=== PATIENT | female | born 1955 | race Caucasian/White ===

== ENCOUNTER 2017-11-22 22:09 | Inpatient (IN) | payer BC ==
[2017-11-22 22:49] LABS: BASO % 0.4 % (0.0-1.0); EOS # 0.1 10^3/uL (0.0-0.50); EOS % 0.8 % (0.0-3.0); HEMATOCRIT 38.8 % (36.0-47.0); HEMOGLOBIN 12.7 g/dl (12.0-16.0); IMMATURE GRANULOCYTE % 0.2 % (0-3.0); LYMPH # 2.4 10^3/uL (1.5-4.5); LYMPH % 21.7 % (24.0-44.0); MEAN CORPUSCULAR HEMOGLOBIN 28.2 pg (27.0-33.0); MEAN CORPUSCULAR HGB CONC 32.7 g/dl (32.0-36.5); MEAN CORPUSCULAR VOLUME 86.2 fl (80.0-96.0); MONO # 1.1 10^3/uL (0.0-0.8); MONO % 10.2 % (0.0-5.0); NEUTROPHILS # 7.3 10^3/uL (1.8-7.7); NEUTROPHILS % 66.7 % (36.0-66.0); PLATELET COUNT, AUTOMATED 367 10^3/uL (150-450); RED CELL DISTRIBUTION WIDTH 14.2 % (11.5-14.5); WHITE BLOOD COUNT 10.9 10^3/uL (4.0-10.0)
[2017-11-22 23:00] LABS: PROTHROMBIN TIME 12.2 SECONDS (12.4-14.5)
[2017-11-22 23:01] LABS: PARTIAL THROMBOPLASTIN TIME 31.1 SECONDS (26.8-37.9)
[2017-11-22] MEDS: MORPHINE 2 MG/ML 1ML SYRINGE (J2270) IV (23:08)
[2017-11-22 23:10] LABS: ANION GAP 5 MEQ/L (8-16); BLOOD UREA NITROGEN 10 MG/DL (7-18); CALCIUM LEVEL 9.1 MG/DL (8.8-10.2); CARBON DIOXIDE LEVEL 30 MEQ/L (21-32); CHLORIDE LEVEL 94 MEQ/L (98-107); CPK CREATINE PHOSPHOKINASE 98 U/L (26-192); CREATININE FOR GFR 0.55 MG/DL (0.55-1.30); GLOMERULAR FILTRATION RATE > 60.0 (>45); GLUCOSE, FASTING 102 MG/DL (70-100); POTASSIUM SERUM 4.1 MEQ/L (3.5-5.1); SODIUM LEVEL 129 MEQ/L (136-145); TROPONIN I < 0.02 NG/ML (< 0.10)
[2017-11-22 23:11] LABS: CK-MB VALUE MASS 2.7 NG/ML (0.0-3.6); MB/CK RELATIVE INDEX 2.75 (< OR =4); NT-PRO BNP 141 PG/ML (<125)
[2017-11-22] MEDS ORDERED: ISOVUE-370 76% 100ML VIAL (Q9967) As Ordered (23:34)
[2017-11-22] MEDS: dexameTHASONE 20 MG/5 ML VIAL (J1100) IV (23:50)
[2017-11-23] MEDS: MORPHINE 2 MG/ML 1ML SYRINGE (J2270) IV (00:15)
[2017-11-23] MEDS: IPRATROPIUM 0.5MG/ALBUTEROL 2.5MG INH SOL UD 3ML (DUONEB)(J7620) NEB (00:30)
[2017-11-23 00:32] LABS: ABG BASE EXCESS 2.2 (-2.0-2.0); ABG HCO3 27.2 MEQ/L (22.0-26.0); ABG O2 SATURATION 91.5 % (95.0-99.0); ABG PARTIAL PRESSURE CO2 43.7 mmHg (35.0-45.0); ABG PARTIAL PRESSURE O2 63.8 mmHg (75.0-100.0); ABG STANDARD HCO3 26.3 MEQ/L (22.0-26.0); ABG TOTAL CO2 28.5 MEQ/L (23.0-31.0); ABG pH (ARTERIAL) 7.412 UNITS (7.350-7.450)
[2017-11-23] MEDS ORDERED: LEVALBUTEROL 1.25 MG/0.5 ML CONCENTRATE NEB INH (02:15)
[2017-11-23] MEDS: ALPRAZolam 0.25 MG TAB PO ×3 (04:38→20:25)
[2017-11-23] MEDS: MORPHINE 4 MG/ML 1ML VIAL (J2270) IV (04:41)
[2017-11-23] MEDS: NS 1,000 ML IV (04:52)
[2017-11-23] MEDS: methylPREDNISolone INJ 125 MG/2 ML VIAL (J2930) IV (06:34)
[2017-11-23] MEDS: LEVALBUTEROL 1.25 MG/0.5 ML CONCENTRATE NEB INH ×4 (07:38→19:45)
[2017-11-23 08:43] LABS: C REACTIVE PROTEIN QUANTITATIV 1.41 MG/DL (0.00-0.30)
[2017-11-23 09:27] LABS: ERYTHROCYTE SEDIMENTATION RATE 43 mm/hr (0-30)
[2017-11-23 09:34] LABS: OSMOLALITY SERUM 274 MOSM/KG (280-301)
[2017-11-23] MEDS ORDERED: tiZANidine 4 MG TAB PO (10:00)
[2017-11-23] MEDS: HEPARIN SOD (PORCINE) 5000 UNITS/ML VIAL SQ ×2 (10:13→20:27)
[2017-11-23] MEDS: SENOKOT S TAB PO ×2 (10:13→20:25)
[2017-11-23] MEDS: NICOTINE 14 MG/24 HR TRANSDERMAL TD ×2 (10:13→10:15)
[2017-11-23] MEDS ORDERED: PILL CUTTER/CRUSHER XX (10:45)
[2017-11-23 12:24] LABS: HEMATOCRIT 37.7 % (36.0-47.0); HEMOGLOBIN 12.4 g/dl (12.0-16.0); LYMPH # 0.5 10^3/uL (1.5-4.5); LYMPH % 17.4 % (24.0-44.0); MEAN CORPUSCULAR HEMOGLOBIN 28.6 pg (27.0-33.0); MEAN CORPUSCULAR HGB CONC 32.9 g/dl (32.0-36.5); MEAN CORPUSCULAR VOLUME 87.1 fl (80.0-96.0); MONO # 0.1 10^3/uL (0.0-0.8); MONO % 2.9 % (0.0-5.0); NEUTROPHILS # 2.4 10^3/uL (1.8-7.7); NEUTROPHILS % 78.7 % (36.0-66.0); PLATELET COUNT, AUTOMATED 356 10^3/uL (150-450); RED BLOOD COUNT 4.33 10^6/uL (4.00-5.40); RED CELL DISTRIBUTION WIDTH 14.1 % (11.5-14.5); WHITE BLOOD COUNT 3.1 10^3/uL (4.0-10.0)
[2017-11-23] MEDS: CitaloPRAM (CeleXA) 10 MG TABLET PO (13:07)
[2017-11-23] MEDS: methylPREDNISolone INJ 40 MG/1 ML VIAL (J2920) IV ×3 (13:07→23:52)
[2017-11-23] MEDS: oxyCODONE 5MG TAB PO ×2 (13:10→20:26)
[2017-11-23 13:13] LABS: ALBUMIN 3.2 GM/DL (3.2-5.2); ALKALINE PHOSPHATASE 96 U/L (45-117); ALT/SGPT 17 U/L (12-78); ANION GAP 5 MEQ/L (8-16); AST/SGOT 13 U/L (7-37); BILIRUBIN,TOTAL 0.3 MG/DL (0.2-1.0); BLOOD UREA NITROGEN 10 MG/DL (7-18); CALCIUM LEVEL 8.5 MG/DL (8.8-10.2); CARBON DIOXIDE LEVEL 29 MEQ/L (21-32); CHLORIDE LEVEL 94 MEQ/L (98-107); CREATININE FOR GFR 0.58 MG/DL (0.55-1.30); GLOMERULAR FILTRATION RATE > 60.0 (>45); GLUCOSE, FASTING 125 MG/DL (70-100); POTASSIUM SERUM 4.6 MEQ/L (3.5-5.1); SODIUM LEVEL 128 MEQ/L (136-145); TOTAL PROTEIN 7.2 GM/DL (6.4-8.2)
[2017-11-23] MEDS: ONDANSETRON 4 MG TAB (S0181) PO (17:26)
[2017-11-23] MEDS ORDERED: methylPREDNISolone INJ 40 MG/1 ML VIAL (J2920) IV (18:00)
[2017-11-23] MEDS: SODIUM CHLORIDE NASAL 0.65% SPRAY BTL (OCEAN) (22:23)
[2017-11-24] MEDS: oxyCODONE 5MG TAB PO ×3 (02:08→20:25)
[2017-11-24] MEDS: ONDANSETRON 4 MG TAB (S0181) PO ×2 (02:08→12:52)
[2017-11-24] MEDS: ALPRAZolam 0.25 MG TAB PO ×3 (02:08→21:48)
[2017-11-24 03:20] LABS: CHLORIDE,RANDOM URINE 84 MEQ/L; CREATININE,RANDOM URINE 71.2 MG/DL; SODIUM,RANDOM URINE 58 MEQ/L; TOTAL PROTEIN,RANDOM URINE 11.7 MG/DL (0.0-12.0)
[2017-11-24 03:20] LABS: URIC ACID,RANDOM URINE 45.3 MG/DL
[2017-11-24 04:43] LABS: HEMATOCRIT 34.7 % (36.0-47.0); HEMOGLOBIN 11.2 g/dl (12.0-16.0); MEAN CORPUSCULAR HEMOGLOBIN 27.7 pg (27.0-33.0); MEAN CORPUSCULAR HGB CONC 32.3 g/dl (32.0-36.5); MEAN CORPUSCULAR VOLUME 85.9 fl (80.0-96.0); PLATELET COUNT, AUTOMATED 343 10^3/uL (150-450); RED BLOOD COUNT 4.04 10^6/uL (4.00-5.40); RED CELL DISTRIBUTION WIDTH 14.1 % (11.5-14.5); WHITE BLOOD COUNT 6.2 10^3/uL (4.0-10.0)
[2017-11-24 05:04] LABS: ANION GAP 3 MEQ/L (8-16); BLOOD UREA NITROGEN 15 MG/DL (7-18); CALCIUM LEVEL 8.3 MG/DL (8.8-10.2); CARBON DIOXIDE LEVEL 31 MEQ/L (21-32); CHLORIDE LEVEL 95 MEQ/L (98-107); CPK CREATINE PHOSPHOKINASE 55 U/L (26-192); CREATININE FOR GFR 0.49 MG/DL (0.55-1.30); GLOMERULAR FILTRATION RATE > 60.0 (>45); GLUCOSE, FASTING 129 MG/DL (70-100); POTASSIUM SERUM 4.9 MEQ/L (3.5-5.1); SODIUM LEVEL 129 MEQ/L (136-145); TROPONIN I < 0.02 NG/ML (< 0.10)
[2017-11-24 05:05] LABS: CK-MB VALUE MASS 2.2 NG/ML (0.0-3.6)
[2017-11-24] MEDS: methylPREDNISolone INJ 40 MG/1 ML VIAL (J2920) IV ×4 (06:31→23:33)
[2017-11-24] MEDS: LEVALBUTEROL 1.25 MG/0.5 ML CONCENTRATE NEB INH ×4 (07:40→19:53)
[2017-11-24] MEDS: SENOKOT S TAB PO ×2 (09:29→20:24)
[2017-11-24] MEDS: FLUTICASONE PROP 0.05% NASAL SPRAY 16 GM (FLONASE) ×2 (09:29→20:24)
[2017-11-24] MEDS: ACETAMINOPHEN TAB 650MG DOSE (2X325MG) PO (09:30)
[2017-11-24] MEDS: CitaloPRAM (CeleXA) 10 MG TABLET PO (09:30)
[2017-11-24] MEDS: NICOTINE 14 MG/24 HR TRANSDERMAL TD (09:30)
[2017-11-24] MEDS: HEPARIN SOD (PORCINE) 5000 UNITS/ML VIAL SQ ×2 (09:30→20:24)
[2017-11-24] MEDS: diazePAM 5 MG TAB PO (10:28)
[2017-11-24 14:18] LABS: ANTI DOUBLE STRAND-DNA AB 6 IU/mL (0-9); ANTINUCLEAR ANTIBODIES DIRECT Positive (Negative); RNP ANTIBODIES <0.2 AI (0.0-0.9); SJOGREN'S ANTI SS-A <0.2 AI (0.0-0.9); SJOGREN'S ANTI SS-B <0.2 AI (0.0-0.9); SMITH ANTIBODIES <0.2 AI (0.0-0.9)
[2017-11-24 14:58] LABS: CK-MB VALUE MASS 2.3 NG/ML (0.0-3.6); CPK CREATINE PHOSPHOKINASE 56 U/L (26-192); TROPONIN I < 0.02 NG/ML (< 0.10)
[2017-11-24 17:53] LABS: ALBUMIN 3.4 GM/DL (3.2-5.2); ANION GAP 5 MEQ/L (8-16); BLOOD UREA NITROGEN 19 MG/DL (7-18); CALCIUM LEVEL 8.8 MG/DL (8.8-10.2); CARBON DIOXIDE LEVEL 32 MEQ/L (21-32); CHLORIDE LEVEL 93 MEQ/L (98-107); CREATININE FOR GFR 0.58 MG/DL (0.55-1.30); FREE T4 1.07 NG/DL (0.76-1.46); GLOMERULAR FILTRATION RATE > 60.0 (>45); GLUCOSE, FASTING 106 MG/DL (70-100); PHOSPHORUS LEVEL 3.7 MG/DL (2.5-4.9); RHEUMATOID FACTOR QUANT < 10.0 IU/ML (0-15.0); SODIUM LEVEL 130 MEQ/L (136-145)
[2017-11-24 18:00] LABS: POTASSIUM SERUM 5.3 MEQ/L (3.5-5.1)
[2017-11-24 18:16] LABS: OSMOLALITY SERUM 280 MOSM/KG (280-301)
[2017-11-24 18:40] LABS: PTH INTACT 61.7 PG/ML (18.5-88.0); TOTAL 25(OH) VITAMIN D 18.1 NG/ML (30.0-100.0)
[2017-11-24 20:09] LABS: APPEARANCE, URINE CLEAR (CLEAR); BACTERIA, URINE AUTO NEGATIVE (NEGATIVE); BILIRUBIN, URINE AUTO NEGATIVE (NEGATIVE); BLOOD, URINE BLOOD 1+ (NEGATIVE); COLOR, URINE STRAW (YELLOW); GLUCOSE, URINE (UA) AUTO NEGATIVE (NEGATIVE); KETONE, URINE AUTO NEGATIVE (NEGATIVE); LEUKOCYTE ESTERASE, URINE AUTO NEGATIVE (NEGATIVE); NITRITE, URINE AUTO NEGATIVE (NEGATIVE); PROTEIN, URINE AUTO NEGATIVE (NEGATIVE); RBC, URINE AUTO 2 /HPF (0-3); SPECIFIC GRAVITY URINE AUTO 1.009 (1.002-1.035); SQUAMOUS EPITHELIAL CELL UR AU 0 /HPF (0-6); UROBILINOGEN, URINE AUTO 0.2 mg/dL (0.0-2.0); WBC, URINE AUTO 0 /HPF (0-3)
[2017-11-24] MEDS: SODIUM CHLORIDE NASAL 0.65% SPRAY BTL (OCEAN) (20:25)
[2017-11-25] MEDS: ALPRAZolam 0.25 MG TAB PO ×4 (04:27→23:54)
[2017-11-25] MEDS: oxyCODONE 5MG TAB PO ×4 (04:28→23:55)
[2017-11-25 04:56] LABS: HEMOGLOBIN 12.5 g/dl (12.0-16.0); MEAN CORPUSCULAR HEMOGLOBIN 28.2 pg (27.0-33.0); MEAN CORPUSCULAR HGB CONC 32.1 g/dl (32.0-36.5); MEAN CORPUSCULAR VOLUME 87.8 fl (80.0-96.0); PLATELET COUNT, AUTOMATED 351 10^3/uL (150-450); RED BLOOD COUNT 4.44 10^6/uL (4.00-5.40); RED CELL DISTRIBUTION WIDTH 14.2 % (11.5-14.5); WHITE BLOOD COUNT 8.4 10^3/uL (4.0-10.0)
[2017-11-25 05:17] LABS: ANION GAP 4 MEQ/L (8-16); BLOOD UREA NITROGEN 18 MG/DL (7-18); CALCIUM LEVEL 8.4 MG/DL (8.8-10.2); CARBON DIOXIDE LEVEL 34 MEQ/L (21-32); CHLORIDE LEVEL 95 MEQ/L (98-107); CREATININE FOR GFR 0.62 MG/DL (0.55-1.30); GLOMERULAR FILTRATION RATE > 60.0 (>45); GLUCOSE, FASTING 125 MG/DL (70-100); POTASSIUM SERUM 4.4 MEQ/L (3.5-5.1); SODIUM LEVEL 133 MEQ/L (136-145)
[2017-11-25] MEDS: methylPREDNISolone INJ 40 MG/1 ML VIAL (J2920) IV ×4 (05:25→20:32)
[2017-11-25] MEDS: GASTROGRAFIN SOLUTION 30ML PO ×2 (06:43→06:44)
[2017-11-25] MEDS: LEVALBUTEROL 1.25 MG/0.5 ML CONCENTRATE NEB INH ×4 (07:49→19:36)
[2017-11-25] MEDS ORDERED: ISOVUE-370 76% 100ML VIAL (Q9967) As Ordered (08:33)
[2017-11-25] MEDS: NICOTINE 14 MG/24 HR TRANSDERMAL TD (09:00)
[2017-11-25] MEDS: HEPARIN SOD (PORCINE) 5000 UNITS/ML VIAL SQ ×2 (09:25→20:32)
[2017-11-25] MEDS: SENOKOT S TAB PO ×2 (09:26→20:31)
[2017-11-25] MEDS: CitaloPRAM (CeleXA) 10 MG TABLET PO (09:26)
[2017-11-25] MEDS: FLUTICASONE PROP 0.05% NASAL SPRAY 16 GM (FLONASE) ×2 (09:29→20:32)
[2017-11-25] MEDS: CALCITONIN NASAL SPRAY 3.7 ML BTL (11:21)
[2017-11-25] MEDS: MIRALAX *UNIT DOSE* 17GM PACKET PO (11:59)
[2017-11-25] MEDS ORDERED: CALCIUM CARBONATE 500 MG CHEW U/D PO (17:15)
[2017-11-26 04:41] LABS: HEMATOCRIT 37.5 % (36.0-47.0); HEMOGLOBIN 11.8 g/dl (12.0-16.0); MEAN CORPUSCULAR HEMOGLOBIN 27.8 pg (27.0-33.0); MEAN CORPUSCULAR HGB CONC 31.5 g/dl (32.0-36.5); MEAN CORPUSCULAR VOLUME 88.4 fl (80.0-96.0); PLATELET COUNT, AUTOMATED 352 10^3/uL (150-450); RED BLOOD COUNT 4.24 10^6/uL (4.00-5.40); RED CELL DISTRIBUTION WIDTH 14.4 % (11.5-14.5); WHITE BLOOD COUNT 7.8 10^3/uL (4.0-10.0)
[2017-11-26 04:52] LABS: ANION GAP 2 MEQ/L (8-16); BLOOD UREA NITROGEN 18 MG/DL (7-18); CALCIUM LEVEL 8.4 MG/DL (8.8-10.2); CARBON DIOXIDE LEVEL 37 MEQ/L (21-32); CHLORIDE LEVEL 95 MEQ/L (98-107); CREATININE FOR GFR 0.49 MG/DL (0.55-1.30); GLOMERULAR FILTRATION RATE > 60.0 (>45); GLUCOSE, FASTING 114 MG/DL (70-100); POTASSIUM SERUM 4.7 MEQ/L (3.5-5.1); SODIUM LEVEL 134 MEQ/L (136-145)
[2017-11-26] MEDS: oxyCODONE 5MG TAB PO ×2 (06:44→18:09)
[2017-11-26] MEDS: ALPRAZolam 0.25 MG TAB PO ×2 (06:44→18:09)
[2017-11-26] MEDS: LEVALBUTEROL 1.25 MG/0.5 ML CONCENTRATE NEB INH ×4 (07:05→19:44)
[2017-11-26] MEDS: NICOTINE 14 MG/24 HR TRANSDERMAL TD (09:00)
[2017-11-26] MEDS: CitaloPRAM (CeleXA) 10 MG TABLET PO (09:05)
[2017-11-26] MEDS: SENOKOT S TAB PO ×2 (09:05→20:08)
[2017-11-26] MEDS: MIRALAX *UNIT DOSE* 17GM PACKET PO (09:06)
[2017-11-26] MEDS: methylPREDNISolone INJ 40 MG/1 ML VIAL (J2920) IV ×3 (09:06→20:09)
[2017-11-26] MEDS: HEPARIN SOD (PORCINE) 5000 UNITS/ML VIAL SQ ×2 (09:06→20:09)
[2017-11-26] MEDS: FLUTICASONE PROP 0.05% NASAL SPRAY 16 GM (FLONASE) ×2 (09:07→20:09)
[2017-11-26] MEDS: CALCITONIN NASAL SPRAY 3.7 ML BTL (09:07)
[2017-11-26] MEDS: VITAMIN D 50,000 UNITS CAPSULE (ERGOCALCIFEROL 1.25MG) PO (10:55)
[2017-11-27] MEDS: oxyCODONE 5MG TAB PO ×4 (02:05→19:43)
[2017-11-27 04:34] LABS: HEMATOCRIT 38.9 % (36.0-47.0); HEMOGLOBIN 12.4 g/dl (12.0-16.0); MEAN CORPUSCULAR HEMOGLOBIN 28.1 pg (27.0-33.0); MEAN CORPUSCULAR HGB CONC 31.9 g/dl (32.0-36.5); MEAN CORPUSCULAR VOLUME 88.2 fl (80.0-96.0); PLATELET COUNT, AUTOMATED 342 10^3/uL (150-450); RED BLOOD COUNT 4.41 10^6/uL (4.00-5.40); RED CELL DISTRIBUTION WIDTH 14.5 % (11.5-14.5); WHITE BLOOD COUNT 9.1 10^3/uL (4.0-10.0)
[2017-11-27 04:49] LABS: ANION GAP 3 MEQ/L (8-16); BLOOD UREA NITROGEN 17 MG/DL (7-18); CALCIUM LEVEL 8.5 MG/DL (8.8-10.2); CARBON DIOXIDE LEVEL 34 MEQ/L (21-32); CHLORIDE LEVEL 97 MEQ/L (98-107); CREATININE FOR GFR 0.44 MG/DL (0.55-1.30); GLOMERULAR FILTRATION RATE > 60.0 (>45); GLUCOSE, FASTING 106 MG/DL (70-100); POTASSIUM SERUM 4.7 MEQ/L (3.5-5.1); SODIUM LEVEL 134 MEQ/L (136-145); TOTAL PROTEIN 6.7 GM/DL (6.4-8.2)
[2017-11-27] MEDS: LEVALBUTEROL 1.25 MG/0.5 ML CONCENTRATE NEB INH ×4 (07:15→20:07)
[2017-11-27] MEDS: CitaloPRAM (CeleXA) 10 MG TABLET PO (08:16)
[2017-11-27] MEDS: HEPARIN SOD (PORCINE) 5000 UNITS/ML VIAL SQ ×2 (08:17→20:25)
[2017-11-27] MEDS: MIRALAX *UNIT DOSE* 17GM PACKET PO (08:17)
[2017-11-27] MEDS: methylPREDNISolone INJ 40 MG/1 ML VIAL (J2920) IV ×3 (08:17→20:25)
[2017-11-27] MEDS: FLUTICASONE PROP 0.05% NASAL SPRAY 16 GM (FLONASE) ×2 (08:18→20:25)
[2017-11-27] MEDS: NICOTINE 14 MG/24 HR TRANSDERMAL TD (08:18)
[2017-11-27] MEDS: CALCITONIN NASAL SPRAY 3.7 ML BTL (08:18)
[2017-11-27] MEDS: SENOKOT S TAB PO ×2 (08:20→20:25)
[2017-11-27] MEDS: ALPRAZolam 0.25 MG TAB PO ×3 (08:21→19:42)
[2017-11-28 00:06] LABS: ANA (HEP2) Positive (.); ANA HOMOGENEOUS PATTERN >1:1280 (.); FREE KAPPA LIGHT CHAINS SERUM 8.8 mg/L (3.3-19.4); FREE LAMBDA LIGHT CHAINS SERUM 6.9 mg/L (5.7-26.3); KAPPA/LAMBDA RATIO SERUM 1.28 (0.26-1.65)
[2017-11-28 00:06] LABS: CYCLIC CITRULLINATED PEPTIDE 8 units (0-19)
[2017-11-28] MEDS: ALPRAZolam 0.25 MG TAB PO ×3 (00:19→08:55)
[2017-11-28] MEDS: oxyCODONE 5MG TAB PO ×3 (00:19→08:55)
[2017-11-28 05:05] LABS: HEMATOCRIT 39.9 % (36.0-47.0); HEMOGLOBIN 12.9 g/dl (12.0-16.0); MEAN CORPUSCULAR HEMOGLOBIN 28.1 pg (27.0-33.0); MEAN CORPUSCULAR HGB CONC 32.3 g/dl (32.0-36.5); MEAN CORPUSCULAR VOLUME 86.9 fl (80.0-96.0); PLATELET COUNT, AUTOMATED 372 10^3/uL (150-450); RED BLOOD COUNT 4.59 10^6/uL (4.00-5.40); RED CELL DISTRIBUTION WIDTH 14.5 % (11.5-14.5)
[2017-11-28 05:27] LABS: ANION GAP 5 MEQ/L (8-16); BLOOD UREA NITROGEN 17 MG/DL (7-18); CALCIUM LEVEL 8.3 MG/DL (8.8-10.2); CARBON DIOXIDE LEVEL 33 MEQ/L (21-32); CHLORIDE LEVEL 96 MEQ/L (98-107); GLOMERULAR FILTRATION RATE > 60.0 (>45); GLUCOSE, FASTING 110 MG/DL (70-100); POTASSIUM SERUM 4.7 MEQ/L (3.5-5.1); SODIUM LEVEL 134 MEQ/L (136-145)
[2017-11-28] MEDS: LEVALBUTEROL 1.25 MG/0.5 ML CONCENTRATE NEB INH (07:14)
[2017-11-28] MEDS: MIRALAX *UNIT DOSE* 17GM PACKET PO (08:46)
[2017-11-28] MEDS: SENOKOT S TAB PO (08:46)
[2017-11-28] MEDS: CitaloPRAM (CeleXA) 10 MG TABLET PO (08:46)
[2017-11-28] MEDS: methylPREDNISolone INJ 40 MG/1 ML VIAL (J2920) IV (08:46)
[2017-11-28] MEDS: NICOTINE 14 MG/24 HR TRANSDERMAL TD (08:47)
[2017-11-28] MEDS: HEPARIN SOD (PORCINE) 5000 UNITS/ML VIAL SQ (08:47)
[2017-11-28] MEDS: CALCITONIN NASAL SPRAY 3.7 ML BTL (08:47)
[2017-11-28] MEDS: FLUTICASONE PROP 0.05% NASAL SPRAY 16 GM (FLONASE) (08:47)
[2017-11-29 00:07] LABS: FREE LAMBDA LIGHT CHAINS URINE 0.68 mg/L (0.24-6.66); KAPPA/LAMBDA RATIO URINE 17.79 (2.04-10.37)
[2017-11-29 08:50] LABS: ALBUMIN 3.75 GM/DL (3.29-5.55); ALBUMIN % 55.9 % (55.8-66.1); ALPHA-1-GLOBULINS 0.27 GM/DL (0.17-0.41); ALPHA-2-GLOBULINS 0.88 GM/DL (0.42-0.99); ALPHA-2-GLOBULINS % 13.2 % (7.1-11.8); BETA-1-GLOBULINS 0.44 GM/DL (0.28-0.60); BETA-1-GLOBULINS % 6.5 % (4.7-7.2); BETA-2-GLOBULINS 0.35 GM/DL (0.19-0.55); BETA-2-GLOBULINS % 5.2 % (3.2-6.5); GAMMA GLOBULIN % 15.2 % (11.1-18.8); GAMMA GLOBULINS 1.02 GM/DL (0.65-1.58)
[2017-11-29 09:16] LABS: DRVV SCREEN 34.9 SEC
[2017-11-29 09:17] LABS: PTT LUPUS TYPE ANTICOAG SCREEN 0.8 (0-1.2)
== END 2017-11-28 10:40 | disposition home or self-care (01) | DRG 347 ==
LOC: M ED 22:09 → M PCU 11-27 10:45 → M ED INP 11-23 02:29 → M ICU 11-23 04:29
DX: M48.54XA Collapsed vertebra, not elsewhere classified, thoracic region, initial encounter for fracture (principal); I31.3 Pericardial effusion (noninflammatory); J44.1 Chronic obstructive pulmonary disease with (acute) exacerbation; E87.1 Hypo-osmolality and hyponatremia; F17.210 Nicotine dependence, cigarettes, uncomplicated; Z90.49 Acquired absence of other specified parts of digestive tract; Z88.6 Allergy status to analgesic agent; Z79.899 Other long term (current) drug therapy; F41.9 Anxiety disorder, unspecified

== ENCOUNTER → 2017-11-30 | Outpatient (CLI) | payer BC | LOC: M CARPUL 08:30 | DX: I31.3 Pericardial effusion (noninflammatory) (principal); I35.8 Other nonrheumatic aortic valve disorders; R94.31 Abnormal electrocardiogram [ECG] [EKG] | CPT/HCPCS: 93306 ==

== ENCOUNTER → 2018-01-02 | Outpatient (CLI) | payer BC | LOC: M SMT 10:23 | DX: I31.3 Pericardial effusion (noninflammatory) (principal) | CPT/HCPCS: 71046 ==

== ENCOUNTER 2018-09-27 14:28 | Inpatient (IN) | payer BC ==
[~2018-09-27] VITALS: Ht 177.8 cm; Wt 59.5 kg
[~2018-09-27 14:28] MED LIST: BREO1INH INH; CALC20SPR; CALC500C16 PO; CELE10TA PO; CITA20TA4 PO; DOK100TA PO; DRIS50003 PO; FLUTISP; LEVA12INH INH; NICO14PA TD; OXYCO5TA PO; PRED20TA PO; PROAAER10 INH; XANA0.25 PO
[2018-09-27] MEDS: IPRATROPIUM 0.5MG/ALBUTEROL 2.5MG INH SOL UD 3ML (DUONEB)(J7620) NEB PRN ×3 (14:55→16:07)
[2018-09-27 15:10] LABS: BASO % 0.1 % (0.0-1.0); HEMATOCRIT 37.4 % (36.0-47.0); HEMOGLOBIN 12.2 g/dl (12.0-15.5); LYMPH # 0.7 10^3/uL (1.5-4.5); LYMPH % 4.7 % (24.0-44.0); MEAN CORPUSCULAR HEMOGLOBIN 29.8 pg (27.0-33.0); MEAN CORPUSCULAR HGB CONC 32.6 g/dl (32.0-36.5); MEAN CORPUSCULAR VOLUME 91.2 fl (80.0-96.0); MONO # 0.8 10^3/uL (0.0-0.8); MONO % 5.4 % (0.0-5.0); NEUTROPHILS # 12.3 10^3/uL (1.8-7.7); NEUTROPHILS % 89.6 % (36.0-66.0); PLATELET COUNT, AUTOMATED 295 10^3/uL (150-450); WHITE BLOOD COUNT 13.8 10^3/uL (4.0-10.0)
[2018-09-27] MEDS: METOPROLOL 5 MG/5 ML VIAL IV SCH ×3 (15:16→17:14)
--- NOTE | 2018-09-27 15:23 | REP ---
Chest one-view HISTORY: Cough Comparison: 01/02/2018 An increase in interstitial markings is present in the lungs. The heart is normal in size. The pulmonary vasculature is normal in appearance. A moderate size hiatal hernia is present. Impression: 1. There is an increase in interstitial markings in the lungs consistent with interstitial edema or infiltrates. 2. Moderate size hiatal hernia. Electronically Signed by Matthew Dior MD 09/27/2018 03:14 P
[2018-09-27] MEDS ORDERED: methylPREDNISolone INJ 125 MG/2 ML VIAL (J2930) IV ONE (15:30)
[2018-09-27] MEDS ORDERED: ONDANSETRON 4MG/2ML VIAL (J2405) IV ONE (15:30)
[2018-09-27] MEDS: MORPHINE 2 MG/ML 1ML SYRINGE (J2270) IV PRN ×2 (15:33→17:43)
[2018-09-27 15:34] LABS: ALBUMIN 3.4 GM/DL (3.2-5.2); ALT/SGPT 11 U/L (12-78); BILIRUBIN,DIRECT 0.2 MG/DL (0.0-0.2); BILIRUBIN,TOTAL 0.5 MG/DL (0.2-1.0); BLOOD UREA NITROGEN 9 MG/DL (7-18); CALCIUM LEVEL 8.9 MG/DL (8.8-10.2); CARBON DIOXIDE LEVEL 29 MEQ/L (21-32); CHLORIDE LEVEL 89 MEQ/L (98-107); CPK CREATINE PHOSPHOKINASE 65 U/L (26-192); CREATININE FOR GFR 0.42 MG/DL (0.55-1.30); GLOMERULAR FILTRATION RATE > 60.0 (>45); GLUCOSE, FASTING 119 MG/DL (70-100); MB/CK RELATIVE INDEX 3.38 (< OR =4); NT-PRO BNP 462 PG/ML (<125); POTASSIUM SERUM 4.3 MEQ/L (3.5-5.1); SODIUM LEVEL 126 MEQ/L (136-145); TOTAL PROTEIN 6.9 GM/DL (6.4-8.2); TROPONIN I < 0.02 NG/ML (< 0.10)
[2018-09-27 15:39] LABS: INFLUENZA A AMPLIFICATION NEGATIVE (NEGATIVE); INFLUENZA B AMPLIFICATION NEGATIVE (NEGATIVE)
[2018-09-27 15:55] LABS: ABG BASE EXCESS 4.2 (-2.0-2.0); ABG HCO3 29.7 MEQ/L (22.0-26.0); ABG O2 SATURATION 93.1 % (95.0-99.0); ABG PARTIAL PRESSURE CO2 48.3 mmHg (35.0-45.0); ABG PARTIAL PRESSURE O2 66.5 mmHg (75.0-100.0); ABG STANDARD HCO3 28.1 MEQ/L (22.0-26.0); ABG TOTAL CO2 31.2 MEQ/L (23.0-31.0); ABG pH (ARTERIAL) 7.407 UNITS (7.350-7.450)
[2018-09-27] MEDS ORDERED: cefTRIAXone SOD 1 GM in D5W MINI-BAG PLUS 50 ML IV ONE (16:30)
[2018-09-27] MEDS ORDERED: AZITHROMYCIN INJ 500 MG, VIAL MATE ADAPTER 1 EACH in D5W 250 ML IV ONE (16:30)
[2018-09-27] MEDS ORDERED: HYDR-3713 PO (16:34)
[2018-09-27] MEDS ORDERED: TUMS500C PO (16:34)
[2018-09-27] MEDS ORDERED: INCR1INH INH (16:34)
[2018-09-27] MEDS ORDERED: VITA50005 PO (16:34)
[2018-09-27] MEDS ORDERED: CALCIUM CARBONATE 500 MG CHEW U/D PO PRN (16:45)
[2018-09-27 20:15] VITALS: BP 113/60
[2018-09-27] MEDS: IPRATROPIUM 0.5MG/ALBUTEROL 2.5MG INH SOL UD 3ML (DUONEB)(J7620) NEB SCH ×2 (21:41→23:50)
[2018-09-27] MEDS: NS 1,000 ML IV SCH (22:27)
[2018-09-27] MEDS: NORCO, ANEXSIA 5/325MG TABLET (HYDROcodone/ACETAMINOPHEN) PO PRN (22:27)
[2018-09-28] MEDS: methylPREDNISolone INJ 40 MG/1 ML VIAL (J2920) IV SCH ×3 (00:27→17:28)
[2018-09-28] MEDS: IPRATROPIUM 0.5MG/ALBUTEROL 2.5MG INH SOL UD 3ML (DUONEB)(J7620) NEB SCH ×7 (03:43→23:28)
[2018-09-28] MEDS: NS 1,000 ML IV SCH ×2 (05:15→16:15)
[2018-09-28] MEDS: LevoFLOXacin IV 500 MG in APPROPRIATE DILUENT 1 EA IV SCH (05:15)
[2018-09-28 06:00] VITALS: BP 116/58
[2018-09-28 06:31] LABS: HEMATOCRIT 32.6 % (36.0-47.0); HEMOGLOBIN 10.7 g/dl (12.0-15.5); LYMPH # 0.4 10^3/uL (1.5-4.5); LYMPH % 3.3 % (24.0-44.0); MEAN CORPUSCULAR HEMOGLOBIN 29.2 pg (27.0-33.0); MEAN CORPUSCULAR HGB CONC 32.8 g/dl (32.0-36.5); MEAN CORPUSCULAR VOLUME 88.8 fl (80.0-96.0); MONO # 0.2 10^3/uL (0.0-0.8); NEUTROPHILS % 94.4 % (36.0-66.0); PLATELET COUNT, AUTOMATED 268 10^3/uL (150-450); RED BLOOD COUNT 3.67 10^6/uL (4.00-5.40); WHITE BLOOD COUNT 10.6 10^3/uL (4.0-10.0)
[2018-09-28 07:02] LABS: BLOOD UREA NITROGEN 13 MG/DL (7-18); CALCIUM LEVEL 8.6 MG/DL (8.8-10.2); CARBON DIOXIDE LEVEL 30 MEQ/L (21-32); CHLORIDE LEVEL 91 MEQ/L (98-107); CREATININE FOR GFR 0.46 MG/DL (0.55-1.30); GLOMERULAR FILTRATION RATE > 60.0 (>45); GLUCOSE, FASTING 152 MG/DL (70-100); SODIUM LEVEL 128 MEQ/L (136-145)
--- NOTE | 2018-09-28 07:54 | ECGEPIP ---
Stationary ECG Study [facility] - ED Test Date: 2018-09-27 Pat Name: OSVALDO BRASWELL Department: Room: - Gender: F Crematory Operator: VENITA : 1955 Requested By: JOEL Martin PA-C Order Number: [id number] Reading MD: Siva Edwards Measurements Intervals [place] Rate: 143 P: SC: 0 QRS: 25 QRSD: 71 T: 63 QT: 257 QTc: 397 Interpretive Statements ATRIAL FIBRILLATION WITH RAPID VENTRICULAR RESPONSE WITH ABERRANT CONDUCTION OR VENTRICULAR PREMATURE COMPLEXES LOW QRS VOLTAGE IN EXTREMITY LEADS ANTEROSEPTAL MYOCARDIAL INFARCTION, PROBABLY OLD RHYTHM/RATE CHANGE COMPARED TO 12/14/17 Electronically Signed On 09-28-2018 7:53:59 EST by Siva Edwards
--- NOTE | 2018-09-28 07:56 | ECGEPIP ---
Stationary ECG Study [facility] - ED Test Date: 2018-09-27 Pat Name: OSVALDO BRASWELL Department: Room: - Gender: F Information Systems Specialist: VENITA : 1955 Requested By: Lor Munoz Order Number: [id number] Reading MD: Siva Edwards Measurements Intervals [place] Rate: 91 P: 66 MS: 177 QRS: 50 QRSD: 80 T: 58 QT: 309 QTc: 380 Interpretive Statements SINUS RHYTHM POSSIBLE LEFT ATRIAL ENLARGEMENT ANTEROSEPTAL MYOCARDIAL INFARCTION, OF INDETERMINATE AGE RHYTHM/RATE CHANGE COMPARED TO PRIOR ON SAME DATE Electronically Signed On 09-28-2018 7:55:57 EST by Siva Edwards
[2018-09-28] MEDS: CALCITONIN NASAL SPRAY 3.7 ML BTL SCH (08:27)
[2018-09-28] MEDS: NORCO, ANEXSIA 5/325MG TABLET (HYDROcodone/ACETAMINOPHEN) PO PRN ×2 (08:28→17:27)
[2018-09-28] MEDS ORDERED: PNEUMOCOCCAL VACCINE 0.5ML SYRINGE(90732) PNEUMOVAX 23 IM ONE (09:00)
[2018-09-28] MEDS ORDERED: CitaloPRAM (CeleXA) 20 MG TAB PO SCH (09:00)
--- NOTE | 2018-09-28 10:11 | IPNPDOC ---
Subjective Date Seen The patient was seen on 09/28/18. Subjective Chief Complaint/HPI Patient is examined at bedside. She states that she has been feeling congested/sinus infection for a week and half. 2 days prior to admission she started having productive cough with milky white color sputum. She also feels that she was very congested with mild right ear pain; some nausea which had resolved. She also states that she has a headache that's about 7/10, stating that she is on Meloxicam 15mg QAM and would like to be put back on that as her headache is bothering her. She admits improving SOB and productive cough; decreased appetite which resolved. Denies sore throat, current N/V, lightheadedness, sinus pain, chest pain, or palpitation. General: Reports: Normal Appetite; Denies: Chills, Night Sweats Constitutional: Denies: Chills, Fever, Night Sweats ENT: Reports: Head Aches, Ear Pain (right, improving) Pulmonary: Reports: Dyspnea (Improving), Cough (Improving, productive); Denies: Pleuritic Chest Pain Cardiovascular: Denies: Chest Pain, Palpitations Gastrointestinal: Denies: Nausea, Vomiting, Abdominal Pain Neurological: Denies: Weakness, Incoordination Psych: Reports: Anxiety Objective Physical Examination General Exam: Positive: Alert, Cooperative, Mild Distress, Other (NC n place) Eye Exam: Positive: Conjunctiva & lids normal; Negative: Sclera icteric ENT Exam: Positive: Mucous membr. moist/pink, Pharynx Normal, Tongue Midline, Nares Patent, Tympanic Membranes Normal (Mild-mod fluid retention behind right TM), Ext Auditory Canal Nml, Other ENT (No tenderness on palpation of frontal or maxillary sinus) Neck Exam: Positive: Supple Chest Exam: Positive: Clear to auscultation, Normal air movement; Negative: Rales, Rhonchi, Wheezing Heart Exam: Positive: Rate Normal, Regular Rhythm, Normal S1, Normal S2; Negative: Murmurs Abdomen Exam: Positive: Normal bowel sounds, Soft; Negative: Tenderness Extremity Exam: Positive: Normal pulses; Negative: Swelling Skin Exam: Positive: Nl turgor and temperature Neuro Exam: Positive: Normal Speech, Strength at 5/5 X4 ext Psych Exam: Positive: Mental status NL, Anxiety, Memory Intact, Oriented x 3 Assessment /Plan Problems (1) Lower respiratory tract infection Status: Acute Response to Treatment: Controlled Discussed With: Patient Problem Specific Plan: Monitor Clinically, Repeat Labs Problem Text: Likely 2/2 community acquired pneumonia. Afebrile. Improving SOB and productive cough. Leukocytosis improving, elevated CRP. Continue IV levofloxacin. Sputum Culture ordered. Sat appro. on NC at 92% as pt has COPD. Continue to f/u with CBC and CRP. Resp tx, Oxygen therapy, and vital signs as scheduled (2) COPD exacerbation Status: Acute Response to Treatment: Controlled Problem Specific Plan: Monitor Clinically Problem Text: On IV Solumedrol 40mg IV Q8h. Sat appro for COPD pts on NC at 92%. May taper down tmrw if symptoms continue to improve. Resp treatment and oxygen therapy as scheduled (3) Hyponatremia Status: Acute Discussed With: Patient Problem Specific Plan: Monitor Clinically, Repeat Labs Problem Text: Corrected Na 129. Likely 2/2 inadequate intake vs hemodilution. IV NS d/c as pt tolerating PO diet well now. Decreased appetite resolved. Discussed with pt to increased diet/salty food intake for now. Asymptomatic. F/u with BMP. Further work up of hyponatremia if worsens. Continue to monitor for signs as symptoms (4) Headache Status: Chronic Problem Specific Plan: Monitor Clinically Problem Text: Continue outpt medication Mobic. On [place] Q6h PRN severe pain. Start actaminophen. Continue to monitor the pt Plan/VTE VTE Prophylaxis Ordered?: Yes (SCD) Plan IVF: Discontinue Diet: Continue Current Activity: Continue Current Therapy: PT Medications: Increase Pain Meds Diagnostics: Repeat Labs in AM, Obtain Cultures Family Medicine Attending Note: I was present on site to supervise NE Ramirez. We discussed the history and exam. I confirmed the levin elements during my [id number] encounter with the patient. We conferred on the assessment and plan; I agree with the note as documented. The patient reports she feels much better than she did yesterday. The treatment for her COPD exacerbation seems to be helping. Additionally we are treating a lower respiratory infection which is likely an early bacterial pneumonia secondary to a viral bronchitis. We'll continue to monitor. 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 COPD exacerbation on IV solumedrol. Sputum cx orderd. Headache on NSAID, acetaminophen, and [place]. May titrate steroid down tmrw VS, I&O, 24H, [facility] Vital Signs/I&O Vital Signs Date Time Temp Pulse Resp B/P (MAP) Pulse Ox O2 Delivery O2 Flow Rate FiO2 09/28/18 08:28 20 09/28/18 06:00 98.0 86 116/58 (77) 92 Nasal Cannula 2.0 09/27/18 14:45 88 I&O- Last 24 Hours up to 6 AM 09/28/18 06:00 Intake Total 1555 ml Output Total 0 ml Balance 1555 ml Laboratory Data 24H LABS Laboratory Tests 2 09/27/18 15:03: Immature Granulocyte % (Auto) 0.2, White Blood Count 13.8H, Red Blood Count 4.10, Hemoglobin 12.2, Hematocrit 37.4, Mean Corpuscular Volume 91.2, Mean Corpuscular Hemoglobin 29.8, Mean Corpuscular Hemoglobin Concent 32.6, Red Cell Distribution Width 13.2, Platelet Count 295, Neutrophils (%) (Auto) 89.6H, Lymphocytes (%) (Auto) 4.7L, Monocytes (%) (Auto) 5.4H, Eosinophils (%) (Auto) 0.0, Basophils (%) (Auto) 0.1, Neutrophils # (Auto) 12.3H, Lymphocytes # (Auto) 0.7L, Monocytes # (Auto) 0.8, Eosinophils # (Auto) 0.0, Basophils # (Auto) 0.0, Nucleated Red Blood Cells % (auto) 0.0, Anion Gap 8, Glomerular Filtration Rate > 60.0, Lactic Acid Level 2.0, Calcium Level 8.9, Aspartate Amino Transf (AST/SGOT) 15, Alanine Aminotransferase (ALT/SGPT) 11L, Alkaline Phosphatase 98, Total Bilirubin 0.5, Direct Bilirubin 0.2, Total Creatine Kinase 65, Creatine Kinase MB 2.0, Creatine Kinase MB Relative Index 3.38, Troponin I < 0.02, [id number]-Type Natriuretic Peptide 462H, Total Protein 6.9, Albumin 3.4, Albumin/Globulin Ratio 0.97L, Influenza Type A (RT-PCR) NEGATIVE, Influenza Type B (RT-PCR) NEGATIVE 09/27/18 15:45: Blood Gas Bicarbonate Standard 28.1H, Arterial Blood pH 7.407, Arterial Blood Partial Pressure CO2 48.3H, Arterial Blood Partial Pressure O2 66.5L, Arterial Blood Total CO2 31.2H, Arterial Blood HCO3 29.7H, Arterial Blood Base Excess 4.2H, Arterial Blood Oxygen Saturation 93.1L 09/28/18 05:45: Immature Granulocyte % (Auto) 0.3, White Blood Count 10.6H, Red Blood Count 3.67L, Hemoglobin 10.7L, Hematocrit 32.6L, Mean Corpuscular Volume 88.8, Mean Corpuscular Hemoglobin 29.2, Mean Corpuscular Hemoglobin Concent 32.8, Red Cell Distribution Width 13.0, Platelet Count 268, Neutrophils (%) (Auto) 94.4H, Lymphocytes (%) (Auto) 3.3L, Monocytes (%) (Auto) 2.0, Eosinophils (%) (Auto) 0.0, Basophils (%) (Auto) 0.0, Neutrophils # (Auto) 10.0H, Lymphocytes # (Auto) 0.4L, Monocytes # (Auto) 0.2, Eosinophils # (Auto) 0.0, Basophils # (Auto) 0.0, Nucleated Red Blood Cells % (auto) 0.0, Anion Gap 7L, Glomerular Filtration Rate > 60.0, Calcium Level 8.6L, Blood Urea Nitrogen 13, Creatinine 0.46L, Sodium [place] 128L, Potassium Level 4.0, Chloride Level 91L, Carbon Dioxide Level 30, C- Reactive Protein, Quantitative 19.60H CBC/BMP Laboratory Tests 09/27/18 15:03 Red Blood Count 4.10, Mean Corpuscular Volume 91.2, Mean Corpuscular Hemoglobin 29.8, Mean Corpuscular Hemoglobin Concent 32.6, Red Cell Distribution Width 13.2, Neutrophils (%) (Auto) 89.6 H, Lymphocytes (%) (Auto) 4.7 L, Monocytes (%) (Auto) 5.4 H, Eosinophils (%) (Auto) 0.0, Basophils (%) (Auto) 0.1, Neutrophils # (Auto) 12.3 H, Lymphocytes # (Auto) 0.7 L, Monocytes # (Auto) 0.8, Eosinophils # (Auto) 0.0, Basophils # (Auto) 0.0 09/28/18 05:45 Red Blood Count 3.67 L, Mean Corpuscular Volume 88.8, Mean Corpuscular Hemoglobin 29.2, Mean Corpuscular Hemoglobin Concent 32.8, Red Cell Distribution Width 13.0, Neutrophils (%) (Auto) 94.4 H, Lymphocytes (%) (Auto) 3.3 L, Monocytes (%) (Auto) 2.0, Eosinophils (%) (Auto) 0.0, Basophils (%) (Auto) 0.0, Neutrophils # (Auto) 10.0 H, Lymphocytes # (Auto) 0.4 L, Monocytes # (Auto) 0.2, Eosinophils # (Auto) 0.0, Basophils # (Auto) 0.0, Calcium Level 8.6 L Microbiology Microbiology 09/27/18 Blood Culture, Received Pending 09/27/18 Blood Culture, Received Pending 09/27/18 Respiratory Virus Panel (PCR) ([facility]) - Final, Complete ELIAS SIMON DO Sep 28, 2018 10:11 am Carlito Morales MD Sep 29, 2018 2:43 pm
--- NOTE | 2018-09-28 10:16 | HPE ---
DATE OF ADMISSION: 09/27/2018 HISTORY OF PRESENT ILLNESS: This is a 63-year-old female with a past medical history of chronic obstructive pulmonary disease (COPD) and lupus who presents to the emergency room with upper respiratory symptoms with congestion and rhinorrhea, approximately five days ago, but in the last three days she says she feels like the buildup has gone to her lungs. She has been coughing up productive of yellow sputum. No subjective feeling of fever or chills, but she has been having shortness of breath with this and unrelieved by nebulizer treatment. She came to the ER for evaluation. In the ER she was no hypoxic. She was maintaining her saturations at 93% on 2 liters nasal cannula and she is normally on 2 liters. She feels much better after receiving a loading dose of IV Solu-Medrol and a few nebulizer treatments. Chest x-ray did not reveal anything revealing and she will be admitted for further management. PAST MEDICAL HISTORY: COPD. History of lupus. ALLERGIES: She has drug allergies to : 1. ASPIRIN. FAMILY HISTORY: Noncontributory. SOCIAL HISTORY: Patient still smokes approximately half a pack a day and she has been smoking for many years. She denies alcohol or illicit drugs. HOME MEDICATIONS: - hydrocodone/acetaminophen 5/325 one tablet orally every 6 hours as needed - alprazolam 0.25 mg orally daily as needed - calcitonin one spray intranasally daily - calcium carbonate 500 mg orally twice daily - citalopram 20 mg orally daily - Colace 100 mg orally daily as needed - cholecalciferol 50,000 units orally weekly - Breo Ellipta 100/25 one puff inhaled daily - INCRUSE Ellipta one puff inhaled daily REVIEW OF SYSTEMS: Negative in all 10 major systems except what has been mentioned in the history of present illness. VITALS: Blood pressure is 106/61, heart rate is 82 and regular, respiratory rate is 26, temperature is 99.6, oxygen saturation is 95% on 3 liters nasal cannula. Head is atraumatic, normocephalic. Neck supple, no jugular venous distention (JVD). Lungs have diminished breath sounds bilaterally. S1 and S2 audible, no murmurs appreciated. Abdomen painful, positive bowel sounds. No pedal edema. Skin is intact. Neurologic examination patient awake, alert and oriented times three. LABS: WBC 13.8, hemoglobin 12.2, hematocrit 37.4, platelets 295,000. Sodium 126, potassium 4.3, chloride 189, CO2 29, anion gap is 8, BUN 9, creatinine 0.42, lactic acid is 2, fasting glucose 119. Blood gas results ABG pH 7.407, pCO2 is 48.3, pO2 is 66.5. IMPRESSION: 1. COPD exacerbation. 2. Acute bronchitis. 3. Hyponatremia. PLAN: Patient is to be admitted to the medical/surgical floor. Will start the patient on IV Solu-Medrol 40 IV every 8 hours and start her on DuoNebs every 4 hours as needed and will also give her IV Levaquin for her bronchitis. As far as her hyponatremia is concerned, we will gently hydrate here with normal saline at 100 mL/hour and will follow sodium levels and trends. Will continue on her preadmission medications and continue her care on the medical/surgical floor.
[2018-09-28] MEDS: MELOXICAM (MOBIC) 7.5 MG TAB PO SCH (13:45)
[2018-09-28] MEDS: FLUTICASONE PROP 0.05% NASAL SPRAY 16 GM (FLONASE) NARES SCH ×2 (13:46→20:47)
[2018-09-28 14:00] VITALS: BP 121/57
[2018-09-28] MEDS ORDERED: ACETAMINOPHEN TAB 650MG DOSE (2X325MG) PO PRN (17:00)
[2018-09-28 22:00] VITALS: BP 135/65
[2018-09-29] MEDS: methylPREDNISolone INJ 40 MG/1 ML VIAL (J2920) IV SCH ×3 (00:29→21:05)
[2018-09-29] MEDS: IPRATROPIUM 0.5MG/ALBUTEROL 2.5MG INH SOL UD 3ML (DUONEB)(J7620) NEB SCH ×5 (03:07→20:28)
[2018-09-29] MEDS: LevoFLOXacin IV 500 MG in APPROPRIATE DILUENT 1 EA IV SCH (05:33)
[2018-09-29 06:00] VITALS: BP 123/69
[2018-09-29 06:11] LABS: HEMOGLOBIN 10.7 g/dl (12.0-15.5); MEAN CORPUSCULAR HEMOGLOBIN 29.5 pg (27.0-33.0); MEAN CORPUSCULAR HGB CONC 33.4 g/dl (32.0-36.5); MEAN CORPUSCULAR VOLUME 88.2 fl (80.0-96.0); PLATELET COUNT, AUTOMATED 316 10^3/uL (150-450); RED BLOOD COUNT 3.63 10^6/uL (4.00-5.40); WHITE BLOOD COUNT 13.2 10^3/uL (4.0-10.0)
[2018-09-29 06:34] LABS: BLOOD UREA NITROGEN 16 MG/DL (7-18); C REACTIVE PROTEIN QUANTITATIV 9.74 MG/DL (0.00-0.30); CALCIUM LEVEL 8.5 MG/DL (8.8-10.2); CARBON DIOXIDE LEVEL 29 MEQ/L (21-32); CHLORIDE LEVEL 95 MEQ/L (98-107); CREATININE FOR GFR 0.42 MG/DL (0.55-1.30); GLOMERULAR FILTRATION RATE > 60.0 (>45); GLUCOSE, FASTING 136 MG/DL (70-100); POTASSIUM SERUM 4.4 MEQ/L (3.5-5.1); SODIUM LEVEL 130 MEQ/L (136-145)
[2018-09-29] MEDS: CALCITONIN NASAL SPRAY 3.7 ML BTL SCH (07:55)
[2018-09-29] MEDS: MELOXICAM (MOBIC) 7.5 MG TAB PO SCH (07:55)
[2018-09-29] MEDS: FLUTICASONE PROP 0.05% NASAL SPRAY 16 GM (FLONASE) NARES SCH ×2 (07:55→21:05)
[2018-09-29] MEDS: ALPRAZolam 0.25 MG TAB PO PRN (09:53)
[2018-09-29] MEDS: SERTRALINE HCL 50 MG TAB PO SCH (09:57)
--- NOTE | 2018-09-29 11:54 | IPNPDOC ---
Subjective Date Seen The patient was seen on 09/29/18. Subjective Chief Complaint/HPI Patient is examined at bedside. She reports that she continues to feel better with improving productive cough and SOB. She reports that she feels very congested and anxious. Denies sore throat, weakness, nausea, vomiting, fever, or chills. General: Denies: Chills, Night Sweats Constitutional: Denies: Chills, Fever, Weakness ENT: Reports: Sinus Congestion; Denies: Sore Throat Pulmonary: Reports: Dyspnea (Mild), Cough (Mild) Cardiovascular: Denies: Palpitations Gastrointestinal: Denies: Nausea, Vomiting Neurological: Denies: Weakness Psych: Reports: Anxiety Objective Physical Examination General Exam: Positive: Alert, Cooperative, Mild Distress Eye Exam: Positive: Conjunctiva & lids normal; Negative: Sclera icteric ENT Exam: Positive: Mucous membr. moist/pink, Nares Patent, Ext Auditory Canal Nml Neck Exam: Positive: Supple Chest Exam: Positive: Clear to auscultation, Normal air movement; Negative: Rales, Rhonchi, Wheezing Heart Exam: Positive: Rate Normal, Regular Rhythm, Normal S1, Normal S2; Negative: Murmurs Abdomen Exam: Positive: Normal bowel sounds, Soft; Negative: Tenderness Extremity Exam: Positive: Normal pulses; Negative: Swelling Skin Exam: Positive: Nl turgor and temperature Neuro Exam: Positive: Normal Speech, Strength at 5/5 X4 ext Psych Exam: Positive: Mental status NL, Anxiety, Memory Intact, Oriented x 3 Assessment /Plan Problems (1) Lower respiratory tract infection Status: Acute Response to Treatment: Controlled Discussed With: Patient Problem Specific Plan: Monitor Clinically, Repeat Labs Problem Text: Likely 2/2 bronchitis vs community acquired pneumonia. Afebrile. Improving SOB and productive cough. Elevated CRP, improving. Continue IV levofloxacin. Neg resp panel and flu. Sputum Culture pending. Blood cx negX2. Sat appropriately. Start Mucinex for congestion. Continue to f/u with CRP. Resp tx, Oxygen therapy, and vital signs as scheduled (2) COPD exacerbation Status: Acute Response to Treatment: Controlled Problem Specific Plan: Monitor Clinically Problem Text: Titrate IV Solumedrol down to 40mg IV Q12h. Sat appropriately. Increased leukocytosis 2/2 to steroid for COPD exacerbation. Resp treatment and oxygen therapy as scheduled. May switch to PO steroid tmrw. (3) Hyponatremia Status: Acute Discussed With: Patient Problem Specific Plan: Monitor Clinically, Repeat Labs Problem Text: Corrected Na 131. Likely 2/2 inadequate intake vs hemodilution. Decreased appetite resolved, tolerating PO diet well now. Discussed with pt to increased diet/salty food intake for now. Asymptomatic. F/u with BMP. Further work up of hyponatremia if worsens. Continue to monitor for signs as symptoms (4) Headache Status: Chronic Problem Specific Plan: Monitor Clinically Problem Text: Continue outpt Mobic PRN, [place] Q6h PRN severe pain, and actaminophen PRN. Continue to monitor the pt (5) Anxiety Status: Chronic Response to Treatment: Stable Problem Text: D/c Celexa and start Sertraline 50mg Qd as pt still has lots of anxiety. Xanax PRN. Continue to monitor the patient Plan/VTE VTE Prophylaxis Ordered?: Yes (SCD) Plan Diet: Continue Current Activity: Continue Current Therapy: PT Diagnostics: Repeat Labs in AM Anticipated Discharge: Home Family Medicine Attending Note: I was present on site to supervise NE Ramirez. We discussed the history and exam. I confirmed the levin elements during my fa ce-to-face encounter with the patient. We conferred on the assessment and plan; I agree with the note as documented. Ms. Smith seems to be making good clinical progress on her current regimen. We did decrease her steroids today. Depending on how she does I anticipate discharge in the next 1-3 days. 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 Solumedrol IV titrating down. Clinically improving and CRP trending down. May switch to PO steroid tmrw. Likely d/c home tmrw VS, I&O, 24H, Fishbone Vital Signs/I&O Vital Signs Date Time Temp Pulse Resp B/P (MAP) Pulse Ox O2 Delivery O2 Flow Rate FiO2 09/29/18 06:00 97.9 87 19 123/69 (87) 93 Nasal Cannula 2.0 09/27/18 14:45 88 I&O- Last 24 Hours up to 6 AM 09/29/18 06:00 Intake Total 3430 ml Output Total 550 ml Balance 2880 ml Laboratory Data 24H LABS Laboratory Tests 2 09/29/18 05:47: Nucleated Red Blood Cells % (auto) 0.0, Anion Gap 6L, Glomerular Filtration Rate > 60.0, Blood Urea Nitrogen 16, Creatinine 0.42L, Sodium Level 130L, Potassium Level 4.4, Chloride Level 95L, Carbon Dioxide Level 29, Calcium Level 8.5L, C- Reactive Protein, Quantitative 9.74H CBC/BMP Laboratory Tests 09/29/18 05:47 Red Blood Count 3.63 L, Mean Corpuscular Volume 88.2, Mean Corpuscular Hemoglobin 29.5, Mean Corpuscular Hemoglobin Concent 33.4, Red Cell Distribution Width 13.2, Calcium Level 8.5 L Microbiology Microbiology 09/27/18 Blood Culture - Preliminary, Resulted No growth after 24 hours . All specim... 09/27/18 Blood Culture - Preliminary, Resulted No growth after 24 hours . All specim... 09/28/18 Gram Stain - Final, Resulted 09/28/18 Sputum Culture, Resulted Pending 09/27/18 Respiratory Virus Panel (PCR) ([facility]) - Final, Complete ELIAS SIMON DO Sep 29, 2018 11:54 Carlito Morales MD Sep 30, 2018 18:16
[2018-09-29] MEDS: guaiFENesin ER 600 MG TAB PO SCH ×2 (11:56→21:04)
[2018-09-29 14:00] VITALS: BP 139/65
[2018-09-29] MEDS: NORCO, ANEXSIA 5/325MG TABLET (HYDROcodone/ACETAMINOPHEN) PO PRN ×2 (14:57→21:05)
[2018-09-29 22:00] VITALS: BP 131/61
[2018-09-30] MEDS: IPRATROPIUM 0.5MG/ALBUTEROL 2.5MG INH SOL UD 3ML (DUONEB)(J7620) NEB SCH ×4 (00:12→11:23)
[2018-09-30 06:00] VITALS: BP 127/67
[2018-09-30] MEDS: LevoFLOXacin IV 500 MG in APPROPRIATE DILUENT 1 EA IV SCH (06:18)
[2018-09-30 06:23] LABS: HEMATOCRIT 31.9 % (36.0-47.0); HEMOGLOBIN 10.8 g/dl (12.0-15.5); MEAN CORPUSCULAR HEMOGLOBIN 29.5 pg (27.0-33.0); MEAN CORPUSCULAR HGB CONC 33.9 g/dl (32.0-36.5); MEAN CORPUSCULAR VOLUME 87.2 fl (80.0-96.0); PLATELET COUNT, AUTOMATED 314 10^3/uL (150-450); RED BLOOD COUNT 3.66 10^6/uL (4.00-5.40); WHITE BLOOD COUNT 12.8 10^3/uL (4.0-10.0)
[2018-09-30 06:46] LABS: BLOOD UREA NITROGEN 14 MG/DL (7-18); C REACTIVE PROTEIN QUANTITATIV 4.43 MG/DL (0.00-0.30); CALCIUM LEVEL 8.7 MG/DL (8.8-10.2); CARBON DIOXIDE LEVEL 31 MEQ/L (21-32); CHLORIDE LEVEL 94 MEQ/L (98-107); CREATININE FOR GFR 0.38 MG/DL (0.55-1.30); GLOMERULAR FILTRATION RATE > 60.0 (>45); GLUCOSE, FASTING 116 MG/DL (70-100); POTASSIUM SERUM 4.7 MEQ/L (3.5-5.1); SODIUM LEVEL 130 MEQ/L (136-145)
[2018-09-30] MEDS: SERTRALINE HCL 50 MG TAB PO SCH (08:00)
[2018-09-30] MEDS: guaiFENesin ER 600 MG TAB PO SCH (08:00)
[2018-09-30] MEDS: methylPREDNISolone INJ 40 MG/1 ML VIAL (J2920) IV SCH (08:00)
[2018-09-30] MEDS: MELOXICAM (MOBIC) 7.5 MG TAB PO SCH (08:00)
[2018-09-30] MEDS: FLUTICASONE PROP 0.05% NASAL SPRAY 16 GM (FLONASE) NARES SCH (08:00)
[2018-09-30] MEDS: CALCITONIN NASAL SPRAY 3.7 ML BTL SCH (08:02)
[2018-09-30] MEDS ORDERED: predniSONE 20 MG TAB PO SCH (09:00)
[2018-09-30] MEDS ORDERED: MUCI600T37 PO (11:44)
[2018-09-30] MEDS ORDERED: SERT50TA PO (11:44)
[2018-09-30] MEDS: ALPRAZolam 0.25 MG TAB PO PRN (11:48)
[2018-09-30] MEDS ORDERED: STRI1AER2 IN (12:50)
[2018-09-30] MEDS ORDERED: INCR1INH INH (12:50)
[2018-09-30] MEDS ORDERED: PRED10TA2 PO (12:54)
[2018-09-30] MEDS ORDERED: IPRA0.00 NEB (13:22)
[2018-09-30] MEDS ORDERED: PRED20TA PO (14:19)
--- NOTE | 2018-09-30 17:04 | DS.PDOC ---
Discharge Summary General Date of Admission Sep 27, 2018 Date of Discharge 09/30/18 Attending Physician: YESSI POLK HNP Discharge Summary PROCEDURES PERFORMED DURING STAY: [None]. ADMITTING DIAGNOSES: 1. Acute bronchitis 2. COPD exacerbation 3. Hyponatremia DISCHARGE DIAGNOSES: 1. Lower respiratory tract infection likely 2/2 to acute bronchitis 2. COPD exacerbation 3. Hyponatremia 4. Headache 5. Anxiety COMPLICATIONS/CHIEF COMPLAINT: Acute Bronchitis/Copd Exacerbation. HISTORY OF PRESENT ILLNESS: Pt is a 63 yo female with PMH of COPD on 2L NC at home and anxiety presented to [facility] on 09/27/18 for congestion, rhinorrheaX5 days as well as productive cough with yellow sputu, and SOB that started about 2 days prior to admission. She reports that she also had a decreased appetite prior to admission. HOSPITAL COURSE: Pt received neublizer treatment in ER as well as IV solu- medrol. Pt was found to have hyponatremia and received 1L of NaCl as she had hyponatremia; her appetite improved and was tolerating PO diet well w/o any dizziness/light headness. Her CXR revealed increase in interstitial markings consistent with interstitial edema/infiltrates. She received a dose of IV Ceftriaxone and Azithromycin in ER. She was started on IV solumderol which was gradually titrated down as well levofloxacin. Pt reports that she has a headache as well as sinus congestion. She desired to be put back on home med Meloxicam. Meloxicam, acetaminophen, and Mucinex was ordered. Pt also reports a lot of anxiety and her Citalopram was switched to Sertraline. Her SOB, productive cough, headache, progressively improved with minimal symptoms. Resp panel and influenza test both neg. Sputum cx was ordered as it may reveal gram(- ) bacteria not tested on resp panel; result neg and IV levofloxacin d/c. CRP cont to improve with decreased appetite resolved. Pt cleared by PT 09/30 to be d/c home. DISCHARGE MEDICATIONS: Please see below. ALLERGIES: Please see below. PHYSICAL EXAMINATION ON DISCHARGE: VITAL SIGNS: Please see below. GENERAL:Alert, Cooperative, not in distress HEENT: Head normocephalic, atraumatic, conjunctiva & lids normal. Mucous membr. moist/pink, nares patent. no scleral icterus. NECK: supple CARDIOVASCULAR EXAMINATION: RRR, no murmur, normal S1 and S2 RESPIRATORY EXAMINATION: Mild rhonchi in left middle lobe when aus in back ABDOMINAL EXAMINATION: Normal bowel sounds in all 4 quadrants. Soft, no tenderness upon palpation EXTREMITIES: No edema or swelling SKIN: Normal skin turgor and temp NEUROLOGICAL EXAMINATION: A&OX3, cognitive and memory grossly intact PSYCHIATRIC EXAMINATION: Mildly anxious LABORATORY DATA: Please see below. IMAGIN09/27/18 CXR revealed increase in interstitial markings consistent with interstitial edema/infiltrates. PROGNOSIS: Good ACTIVITY: [As tolerated]. DIET: COPD diet DISCHARGE PLAN AND INSTRUCTION: 1. Pt will f/u with PCP in 7 days 2. Stop Citalopram and start Celexa. F/u with PCP for further dosing adjustment 3. Complete prednisone taper as dierected 4. Pt's PCP called in prescription for Adavir and Spiriva. Duoneb and Incruse elipta prescription sent from [facility]; high co-pay Incruse Elipta for pt thus she may use Adavir, Spiriva, and Duoneb as directed. Abdulkadir Cerna d/c. DISPOSITION: 01 Home, Self-Care. ITEMS TO FOLLOWUP ON ON OUTPATIENT: 1. COPD exacerbation 2. Acute bronchitis 3. Hyponatremia 4. Prior pos NOEMI; following rheumatology DISCHARGE CONDITION: [Stable]. TIME SPENT ON DISCHARGE: Greater than 20 minutes. Vital Signs/I&Os Vital Signs Date Time Temp Pulse Resp B/P (MAP) Pulse Ox O2 Delivery O2 Flow Rate FiO2 09/30/18 09:00 2.0 09/30/18 06:00 96.6 79 19 127/67 (87) 93 Nasal Cannula 09/27/18 14:45 88 I&O- Last 24 Hours up to 6 AM 09/30/18 06:00 Intake Total 1980 ml Output Total 1175 ml Balance 805 ml Laboratory Data Labs 24H Laboratory Tests 2 09/30/18 05:51: Nucleated Red Blood Cells % (auto) 0.0, Anion Gap 5L, Glomerular Filtration Rate > 60.0, Blood Urea Nitrogen 14, Creatinine 0.38L, Sodium Level 130L, Potassium Level 4.7, Chloride Level 94L, Carbon Dioxide Level 31, Calcium Level 8.7L, C- Reactive Protein, Quantitative 4.43H CBC/BMP Laboratory Tests 09/30/18 05:51 Red Blood Count 3.66 L, Mean Corpuscular Volume 87.2, Mean Corpuscular Hemoglobin 29.5, Mean Corpuscular Hemoglobin Concent 33.9, Red Cell Distribution Width 13.0, Calcium Level 8.7 L Microbiology Microbiology 09/27/18 Blood Culture - Preliminary, Resulted No Growth after 72 hours. All specime... 09/27/18 Blood Culture - Preliminary, Resulted No Growth after 72 hours. All specime... 09/28/18 Gram Stain - Final, Resulted 09/28/18 Sputum Culture, Resulted Pending 09/27/18 Respiratory Virus Panel (PCR) (CLEMENTE) - Final, Complete Discharge Medications Scheduled (Incruse Ellipta) 62.5 Mcg/Inh Inh, 1 PUFF INH DAILY Albuterol/Ipratropium (Ipratropium [place]/Albut 0.5-2.5 (3) mg/3Ml) 1 Shelley Shelley, 1 VIAL NEB QID Calcitonin Preemption (Calcitonin-Preemption) 30 Sprays/3.7 Ml Naspr, 1 SPRAYS NA DAILY Ergocalciferol (Vitamin D) 50,000 Unit Cap, 50,000 UNIT PO QWEEK, (Reported) TUESDAY Guaifenesin (Mucinex) 600 Mg Tab, 1,200 MG PO BID Prednisone (Prednisone) 10 Mg Tab, 10 MG PO TAPER Take 4 tabs daily x 3 days, then 3 tabs daily x 3 days, then 2 tabs daily x 3 days, then 1 tab daily x 3 days and stop Prednisone (Prednisone) 20 Mg Tab, 20 MG PO TID use 20mg tabs, 3x/day for 3 days then switch to 10mg tablets as labeled Sertraline Hcl (Sertraline HCl) 50 Mg Tab, 50 MG PO DAILY Scheduled PRN Acetaminophen/Hydrocodone (Hydrocodone/Acetaminophen 5-325 mg) 1 Tab Tab, 1 TAB PO Q6H PRN for PAIN, (Reported) Alprazolam (Xanax) 0.25 Mg Tab, 0.25 MG PO DAILY PRN for ANXIETY, (Reported) Calcium Carbonate (Tums) 500 Mg Chw, 500 MG PO BID PRN for INDIGESTION, (Reported) Docusate Sodium (Dok) 100 Mg Tab, 100 MG PO DAILY PRN for CONSTIPATION, (Reported) Allergies Coded Allergies: Aspirin (Verified Adverse Reaction, Mild, nausea and vomiting, 12/14/17) ELIAS SIMON DO Sep 30, 2018 17:04
== END 2018-09-30 15:05 | disposition home or self-care (01) | DRG 140 ==
LOC: M ED 14:28 → EDBD 14:28 → M ED INP 18:21 → M MSPAV 20:15 → OBSVTOIN 09-29 09:23 → INTOOBSV 09-29 09:23
PROVIDERS: ADMIT Internal Medicine; ATTEND Family Medicine
DX: J44.1 Chronic obstructive pulmonary disease with (acute) exacerbation (principal); E87.1 Hypo-osmolality and hyponatremia; J20.9 Acute bronchitis, unspecified; R51 Headache; J44.0 Chronic obstructive pulmonary disease with (acute) lower respiratory infection; F17.200 Nicotine dependence, unspecified, uncomplicated; F41.9 Anxiety disorder, unspecified; Z88.6 Allergy status to analgesic agent; Z79.899 Other long term (current) drug therapy

== ENCOUNTER 2018-11-08 17:08 | Inpatient (IN) | payer BC ==
[~2018-11-08] VITALS: Ht 177.8 cm; Wt 66.1 kg
[~2018-11-08 17:08] MED LIST changes: +HYDR-3713 PO; +INCR1INH INH; +IPRA0.00 NEB; +MUCI600T37 PO; +PRED10TA2 PO; +SERT50TA PO; +STRI1AER2 IN; +TUMS500C PO; +VITA50005 PO
[2018-11-08] MEDS ORDERED: NORCO, ANEXSIA 5/325MG TABLET (HYDROcodone/ACETAMINOPHEN) PO ONE (17:45)
[2018-11-08] MEDS ORDERED: methylPREDNISolone INJ 125 MG/2 ML VIAL (J2930) IV ONE (17:45)
[2018-11-08 17:55] LABS: BASO # 0.1 10^3/uL (0.0-0.2); BASO % 0.5 % (0.0-1.0); EOS % 0.1 % (0.0-3.0); HEMATOCRIT 36.7 % (36.0-47.0); HEMOGLOBIN 11.8 g/dl (12.0-15.5); LYMPH # 2.8 10^3/uL (1.5-4.5); LYMPH % 21.8 % (24.0-44.0); MEAN CORPUSCULAR HEMOGLOBIN 29.9 pg (27.0-33.0); MEAN CORPUSCULAR HGB CONC 32.2 g/dl (32.0-36.5); MEAN CORPUSCULAR VOLUME 92.9 fl (80.0-96.0); MONO % 7.8 % (0.0-5.0); NEUTROPHILS # 8.9 10^3/uL (1.8-7.7); NEUTROPHILS % 69.3 % (36.0-66.0); PLATELET COUNT, AUTOMATED 437 10^3/uL (150-450); RED BLOOD COUNT 3.95 10^6/uL (4.00-5.40); WHITE BLOOD COUNT 12.8 10^3/uL (4.0-10.0)
[2018-11-08] MEDS: IPRATROPIUM 0.5MG/ALBUTEROL 2.5MG INH SOL UD 3ML (DUONEB)(J7620) NEB PRN ×2 (18:14→18:15)
[2018-11-08 18:23] LABS: BLOOD UREA NITROGEN 7 MG/DL (7-18); CALCIUM LEVEL 8.8 MG/DL (8.8-10.2); CARBON DIOXIDE LEVEL 35 MEQ/L (21-32); CHLORIDE LEVEL 95 MEQ/L (98-107); CREATININE FOR GFR 0.44 MG/DL (0.55-1.30); GLOMERULAR FILTRATION RATE > 60.0 (>45); GLUCOSE, FASTING 89 MG/DL (70-100); POTASSIUM SERUM 4.4 MEQ/L (3.5-5.1); SODIUM LEVEL 134 MEQ/L (136-145)
[2018-11-08 18:25] LABS: INFLUENZA A AMPLIFICATION NEGATIVE (NEGATIVE); INFLUENZA B AMPLIFICATION NEGATIVE (NEGATIVE)
--- NOTE | 2018-11-08 18:36 | REP ---
PORTABLE CHEST: AP portable view of the chest was performed and compared to prior study of 09/27/2018 as well as other prior exams. There is no evidence of acute infiltrate with mild scattered fibrotic changes. The heart is mildly enlarged. There is moderate to large hiatal hernia. There is mild calcification of the thoracic aorta. Mediastinal silhouette is unchanged. Metallic clips are seen in the upper abdomen. IMPRESSION: Mild cardiomegaly, hiatal hernia. No acute infiltrate. Electronically Signed by Davey Valentine MD 11/08/2018 07:47 P
[2018-11-08] MEDS ORDERED: IPRATROPIUM 0.5MG/ALBUTEROL 2.5MG INH SOL UD 3ML (DUONEB)(J7620) NEB SCH (19:00)
--- NOTE | 2018-11-08 20:33 | REPVR ---
EXAM: CT Chest Without Contrast EXAM DATE/TIME: 11/08/2018 7:11 PM CLINICAL HISTORY: 63 years old, female; Pain; Chest pain; Additional info: Productive cough, proteus pos culture, R/O pneumonia TECHNIQUE: Axial computed tomography images of the chest without intravenous contrast. All CT scans at this facility use at least one of these dose optimization techniques: automated exposure control; mA and/or kV adjustment per patient size (includes targeted exams where dose is matched to clinical indication); or iterative reconstruction. Coronal and sagittal reformatted images were created and reviewed. MIP reconstructed images were created and reviewed. COMPARISON: CT Chest with contrast 12/14/2017 7:30 AM FINDINGS: Lungs: There are small bulla throughout the lungs especially the right and left upper lobes. There is some hazy interstitial density in the upper lung rasheed. Changes of bullous emphysema are noted. The hazy interstitial density could be due to viral pneumonitis. Chronic interstitial lung disease or acute interstitial lung disease would be considerations. There is no evidence of consolidation of lung. Pleural space: There is no evidence of pneumothorax. There is no evidence of pleural effusion. Aorta: There is some calcification of the aorta consistent with atherosclerotic change. The heart is normal in size. However, there is a moderate sized pericardial effusion measuring 1.5 cm in greatest thickness. This is along the anterior and inferior aspect of the cardiac margin. Lymph nodes: Small lymph nodes are noted in the mediastinum. Bones/joints: There is moderate compression of T4 and T5 with loss of one fourth of the vertebral height and some wedge deformity. There is mild compression of the superior endplate of T6. There is moderate compression of the T7 vertebral body with loss of one fourth of the vertebral height. There is severe wedge-shaped compression of T10 with loss of two thirds of the vertebral height. This all causes a moderate amount of kyphosis of the upper thoracic region. Gallbladder and bile ducts: There are surgical clips at the gallbladder fossa and the patient is post cholecystectomy. Stomach and bowel: There is a large hiatal hernia with one half of the stomach above the diaphragm posterior to the cardiac silhouette. IMPRESSION: 1. There is a moderate pericardial effusion measuring 1.5 CM in thickness and significant. Recommend correlation with echo. 2. Changes of bullous emphysema especially right and left upper lobe. Mild hazy increased density in the upper lungs could be the result of mild interstitial symmetric infiltrates. Please see above comments. 3. Moderate compression deformities of multiple thoracic vertebra causing kyphosis. Electronically signed by: Dk Tamayo On 11/08/2018 20:33:08 PM
[2018-11-08] MEDS ORDERED: LORazepam 2 MG/ML VIAL (J2060) IV STA (21:02)
--- NOTE | 2018-11-08 21:11 | ECGEPIP ---
Stationary ECG Study [facility] - ED Test Date: 2018-11-08 Pat Name: OSVALDO BRASWELL Department: Room: - Gender: F Chip Mucker: KCJ : 1955 Requested By: Siva Matta Order Number: [id number] Reading MD: Lor Munoz Measurements Intervals [place] Rate: 98 P: 88 DE: 164 QRS: 38 QRSD: 65 T: 55 QT: 315 QTc: 402 Interpretive Statements SINUS RHYTHM ANTEROSEPTAL MYOCARDIAL INFARCTION, OF INDETERMINATE AGE LOW VOLTAGE LIMB INCREASED RATE 09/27/18 Electronically Signed On 11-08-2018 21:10:31 EST by Lor Munoz
[2018-11-08] MEDS ORDERED: CEFUROXIME SODIUM 1.5 GM in D5W MINI-BAG PLUS 50 ML IV ONE (21:15)
[2018-11-08] MEDS ORDERED: FLON1SPR (21:29)
[2018-11-08] MEDS ORDERED: CALC20SPR (21:29)
[2018-11-08] MEDS ORDERED: ZOLO50TA PO (21:29)
[2018-11-08] MEDS ORDERED: ALBU83IN INH (21:29)
[2018-11-08] MEDS ORDERED: IPRA0.00 INH (21:29)
[2018-11-08] MEDS ORDERED: MELO15TA28 PO (21:29)
[2018-11-08] MEDS ORDERED: ADV500INH INH (21:29)
[2018-11-08 21:40] LABS: ERYTHROCYTE SEDIMENTATION RATE 35 mm/hr (0-30)
[2018-11-08 21:42] LABS: C REACTIVE PROTEIN QUANTITATIV 0.58 MG/DL (0.00-0.30)
[2018-11-08] MEDS ORDERED: ONDANSETRON 4MG/2ML VIAL (J2405) IV PRN (23:15)
[2018-11-08] MEDS ORDERED: NORCO, ANEXSIA 5/325MG TABLET (HYDROcodone/ACETAMINOPHEN) PO PRN (23:15)
[2018-11-08] MEDS ORDERED: ALBUTEROL SULFATE 2.5 MG/0.5 ML INH NEB SOLN NEB PRN (23:15)
[2018-11-08 23:26] LABS: TROPONIN I < 0.02 NG/ML (< 0.10)
[2018-11-08 23:50] VITALS: BP 126/63
[2018-11-08 23:54] LABS: COMPLEMENT C3 119 MG/DL (90-180); COMPLEMENT C4 24 MG/DL (10-40)
[2018-11-09] MEDS: SERTRALINE HCL 50 MG TAB PO SCH ×2 (00:27→21:35)
[2018-11-09] MEDS: AZITHROMYCIN INJ 500 MG, VIAL MATE ADAPTER 1 EACH in D5W 250 ML IV SCH ×2 (00:37→22:07)
[2018-11-09] MEDS: IPRATROPIUM 0.5MG/ALBUTEROL 2.5MG INH SOL UD 3ML (DUONEB)(J7620) NEB SCH ×6 (03:05→20:38)
--- NOTE | 2018-11-09 03:37 | HPE ---
DATE OF ADMISSION: 11/07/2018 CHIEF COMPLAINT: Worsening dyspnea and wheezing over the past several weeks. HISTORY OF PRESENT ILLNESS: The patient is a 63-year-old female with significant past medical history of chronic obstructive pulmonary disease (COPD). She is a current smoker also a significant past medical history of questionable lupus which is an uncertain diagnosis at this point in time. She presents to the emergency room (ER) complaining of worsening dyspnea on exertion associated wheezing and nonproductive cough for the past several weeks culminating over the past few days. She denies any sick contacts. Notable in her history she was admitted here at [facility] from 09/28/2018 to 09/30/2018 with chronic obstructive pulmonary disease exacerbation. She was given two days of antibiotics and subsequently discharged. Sputum culture from this admission appears to have grown delarosa-sensitive proteus. She states she felt better only temporarily and after discharge her breathing status continued to deteriorate, culminated today with profound difficulty breathing. She continues to cough but says it is nonproductive. She denies any fevers or chills. She does not appear toxic during the admission. CT angiogram was performed in the emergency room which showed a moderate pericardial effusion, changes consistent with bullous emphysema and mild hazy increased density upper lungs which could represent infiltrates. Notably in patient's history she also had a pericardial effusion back on 11/22/2017 which as per her there was no intervention. This pericardial effusion can be secondary to her infectious etiology. It could also be autoimmune. She has no recent history of cardiac surgery. She denies any chest pain. She denies any abdominal pain, constipation, diarrhea, urinary symptoms, nausea or vomiting. PAST MEDICAL HISTORY: See history of the present illness (HPI). PAST SURGICAL HISTORY: She had cholecystectomy. She has no history of cardiac surgery. HOME MEDICATIONS: Include: - [place] - albuterol - DuoNebs - Xanax - calcitonin - fluticasone - Advair - Zoloft - meloxicam - Tums - vitamin D ALLERGIES: To ASPIRIN. Her reaction is abdominal discomfort. SOCIAL HISTORY: She is a current smoker. She is down to two to three cigarettes per day. Denies alcohol or illicit drug use. FAMILY HISTORY: Family history is noncontributory. REVIEW OF SYSTEMS: A 12-point review of systems was completed, all of which were negative except those listed in the history of the present illness. VITAL SIGNS ON ADMISSION: Temperature 96.3, pulse 94, respirations 22, blood pressure 150/70 saturating at 97% on 3 liters of nasal cannula. PHYSICAL EXAMINATION: General: She is well nourished, in no apparent distress. Head is normocephalic, atraumatic. Eyes: Extraocular movements are intact. Pupils equal, round, reactive to light. Neck is supple. No jugular venous pressure (JVP). Lungs: Diffuse expiratory wheezing. No discernible crackles. Diminished breath sounds. Cardiovascular: Regular rhythm. Normal S1, S2. No murmurs, gallops, or pericardial rubs appreciated. Abdomen: Soft, nontender, nondistended, positive bowel sounds. No rebound or guarding. Extremities: No pitting edema or calf tenderness. Skin: Appears to be intact. No rashes, lesions or breakdown. Neurological: Alert and oriented (A and O) times three. No focal deficits appreciated on the examination. LABORATORIES AND IMAGING COMPLETED IN THE EMERGENCY ROOM: White count of 12, hemoglobin and hematocrit (H and H) of 11/36, platelet count of 437. Erythrocyte sedimentation rate (ESR) of 35, C-reactive protein (CRP) of 0.58. Chemistries: BUN and creatinine of 7/0.44, thyroid-stimulating hormone (TSH) within normal limits. The lactate within normal limits. IMAGING: CT of the chest without contrast shows a moderate pericardial effusion, bullous emphysema, mild hazy increased density in the upper lungs could result in mild interstitial symmetric infiltrates, moderate compression deformities in multiple thoracic vertebra causing kyphosis. ASSESSMENT AND PLAN: PROBLEMS: 1. Chronic obstructive pulmonary disease (COPD) exacerbation secondary to community-acquired pneumonia review of the previous sputum pathology shows delarosa-sensitive proteus. Will treat with ceftriaxone, azithromycin, DuoNebs, standing albuterol as needed, continue Advair, oxygen as needed to keep oxygen saturation between 89% and 94%, Solu-Medrol 40 every 12 hours, sputum culture, urine Legionella, urine pneumococcal antigen. 2. For pericardial effusion. There is no signs of tamponade. The patient is mildly tachycardic but however she is not hypotensive. We will get an echocardiogram. We will get serial electrocardiogram (EKG). We will place her on telemetry, serial troponins. This is possibly secondary to infectious effusion possibly from a bacterial versus viral pneumonia. This could also be possible autoimmune. There is a questionable history of lupus. We will send C3, C4, double-stranded and deoxyribonucleic acid (DNA) NOEMI. The Solu-Medrol will also help if this is secondary to lupus. We will get an echocardiogram. She may need repeat imaging or possible pericardiocentesis if she remains symptomatic or progresses to be symptomatic. 3. For mood disorder continue Xanax and Zoloft. 4. Supportive deep vein thrombosis (DVT) prophylaxis: Heparin subcutaneous. 5. Gastrointestinal (GI) prophylaxis: Not indicated. 6. Diet: Regular.
[2018-11-09 06:00] VITALS: BP 123/59
[2018-11-09] MEDS: methylPREDNISolone INJ 40 MG/1 ML VIAL (J2920) IV SCH ×2 (06:02→17:58)
[2018-11-09] MEDS: cefTRIAXone SOD 1 GM in D5W MINI-BAG PLUS 50 ML IV SCH (06:02)
[2018-11-09] MEDS: HEPARIN SOD (PORCINE) 5000 UNITS/ML VIAL SC SCH ×3 (06:02→21:35)
[2018-11-09 06:03] LABS: HEMATOCRIT 35.2 % (36.0-47.0); HEMOGLOBIN 11.1 g/dl (12.0-15.5); MEAN CORPUSCULAR HGB CONC 31.5 g/dl (32.0-36.5); MEAN CORPUSCULAR VOLUME 91.9 fl (80.0-96.0); PLATELET COUNT, AUTOMATED 446 10^3/uL (150-450); RED BLOOD COUNT 3.83 10^6/uL (4.00-5.40); WHITE BLOOD COUNT 10.7 10^3/uL (4.0-10.0)
[2018-11-09 06:19] LABS: BLOOD UREA NITROGEN 8 MG/DL (7-18); CALCIUM LEVEL 8.5 MG/DL (8.8-10.2); CARBON DIOXIDE LEVEL 35 MEQ/L (21-32); CHLORIDE LEVEL 97 MEQ/L (98-107); CREATININE FOR GFR 0.39 MG/DL (0.55-1.30); GLOMERULAR FILTRATION RATE > 60.0 (>45); GLUCOSE, FASTING 114 MG/DL (70-100); POTASSIUM SERUM 4.7 MEQ/L (3.5-5.1); SODIUM LEVEL 135 MEQ/L (136-145); TROPONIN I < 0.02 NG/ML (< 0.10)
[2018-11-09] MEDS: ADVAIR HFA 230/21MCG INHALER INH SCH ×2 (07:25→20:46)
[2018-11-09] MEDS ORDERED: PNEUMOCOCCAL VACCINE 0.5ML SYRINGE(90732) PNEUMOVAX 23 IM ONE (09:00)
[2018-11-09] MEDS ORDERED: FLUBLOK(EGG FREE)(QUAD)INFLUENZA VACC 0.5ML SYRINGE (90682)18YRS&OLDER IM ONE (09:00)
[2018-11-09 09:21] LABS: CPK CREATINE PHOSPHOKINASE 45 U/L (26-192); TROPONIN I < 0.02 NG/ML (< 0.10)
[2018-11-09] MEDS: FLUTICASONE PROP 0.05% NASAL SPRAY 16 GM (FLONASE) SCH ×2 (09:23→21:35)
[2018-11-09] MEDS ORDERED: PREVNAR 13 VACCINE SYRINGE (CPT CODE:90670) IM ONE (11:00)
[2018-11-09 11:25] LABS: INR 0.93; PROTHROMBIN TIME 12.6 SECONDS (12.1-14.4)
--- NOTE | 2018-11-09 13:08 | IPNPDOC ---
Subjective Date Seen The patient was seen on 11/09/18. Subjective Chief Complaint/HPI Patient has cough and coughing up clear phelgm. Was not having productive cough before admission. Shortness of breath has improved. Feels better than prior to admission. No chest pain, palpitations. Constitutional: Denies: Chills, Fever Cardiovascular: Denies: Chest Pain, Palpitations, Lt Headedness Objective Physical Examination General Exam: Positive: Alert, No Acute Distress Eye Exam: Positive: PERRLA ENT Exam: Positive: Atraumatic Neck Exam: Positive: Supple Chest Exam: Positive: Rhonchi, Wheezing Heart Exam: Positive: Rate Normal, Rubs Abdomen Exam: Positive: Normal bowel sounds Extremity Exam: Negative: Edema Skin Exam: Positive: Nl turgor and temperature Assessment /Plan Problems (1) COPD exacerbation Problem Text: On steroids for COPD exacerbation, Methylprednisolone 40 mg Q12H. Also on antibiotics, Ceftriaxone q24h and Azithromycin Q24h started 11/09/18. Nebulizers scheduled and as needed. (2) Pericardial effusion Status: Acute Problem Text: Patient has chronic pericardial effusion. Noted on CT scan of chest. Pericardial rub noted on exam. Monitor patient's symptoms and vitals. On steroids for COPD exacerbation. (3) Lupus Problem Text: Patient was diagnosed with Lupus. Sees Rheumatology in [place]. Likely the cause of pericardial effusion. (4) Musculoskeletal back pain Status: Acute Problem Text: Patient has chronic musculoskeletal pain. (5) COPD (chronic obstructive pulmonary disease) Status: Acute Problem Text: On advair. (6) Anxiety Status: Chronic Problem Text: On xanax 0.25 as needed. Plan/VTE VTE Prophylaxis Ordered?: Yes (Heparin q8h) VS, I&O, 24H, Fishbone Vital Signs/I&O Vital Signs Date Time Temp Pulse Resp B/P (MAP) Pulse Ox O2 Delivery O2 Flow Rate FiO2 11/09/18 11:57 16 3.0 11/09/18 06:00 97.5 87 123/59 (80) 98 11/08/18 23:30 Nasal Cannula I&O- Last 24 Hours up to 6 AM 11/09/18 06:00 Intake Total 270 ml Balance 270 ml Laboratory Data 24H LABS Laboratory Tests 2 11/08/18 17:47: Immature Granulocyte % (Auto) 0.5, White Blood Count 12.8H, Red Blood Count 3.95L, Hemoglobin 11.8L, Hematocrit 36.7, Mean Corpuscular Volume 92.9, Mean Corpuscular Hemoglobin 29.9, Mean Corpuscular Hemoglobin Concent 32.2, Red Cell Distribution Width 13.6, Platelet Count 437, Neutrophils (%) (Auto) 69.3H, Lymphocytes (%) (Auto) 21.8L, Monocytes (%) (Auto) 7.8H, Eosinophils (%) (Auto) 0.1, Basophils (%) (Auto) 0.5, Neutrophils # (Auto) 8.9H, Lymphocytes # (Auto) 2.8, Monocytes # (Auto) 1.0H, Eosinophils # (Auto) 0.0, Basophils # (Auto) 0.1, Nucleated Red Blood Cells % (auto) 0.0, Erythrocyte Sedimentation Rate 35H, Anion Gap 4L, Glomerular Filtration Rate > 60.0, Lactic Acid Level 1.1, Blood Urea Nitrogen 7, Creatinine 0.44L, Sodium Level 134L, Potassium Level 4.4, Chloride Level 95L, Carbon Dioxide Level 35H, Calcium Level 8.8, Troponin I < 0.02, C-Reactive Protein, Quantitative 0.58H, Thyroid Stimulating Hormone (TSH) 1.720, Complement C3 119, Complement C4 24, Influenza Type A (RT-PCR) NEGATIVE, Influenza Type B (RT-PCR) NEGATIVE 11/09/18 05:19: Nucleated Red Blood Cells % (auto) 0.0, Anion Gap 3L, Glomerular Filtration Rate > 60.0, Blood Urea Nitrogen 8, Creatinine 0.39L, Sodium Level 135L, Potassium Level 4.7, Chloride Level 97L, Carbon Dioxide Level 35H, Calcium Level 8.5L, Troponin I < 0.02 11/09/18 08:31: Troponin I < 0.02, Total Creatine Kinase 45, Creatine Kinase MB 3.0, Creatine Kinase MB Relative Index 6.00H 11/09/18 10:49: Troponin I < 0.02, Prothrombin Time 12.6, Prothromb Time International Ratio 0.93 CBC/BMP Laboratory Tests 11/08/18 17:47 Red Blood Count 3.95 L, Mean Corpuscular Volume 92.9, Mean Corpuscular Hemoglobin 29.9, Mean Corpuscular Hemoglobin Concent 32.2, Red Cell Distribution Width 13.6, Neutrophils (%) (Auto) 69.3 H, Lymphocytes (%) (Auto) 21.8 L, Monocytes (%) (Auto) 7.8 H, Eosinophils (%) (Auto) 0.1, Basophils (%) (Auto) 0.5, Neutrophils # (Auto) 8.9 H, Lymphocytes # (Auto) 2.8, Monocytes # (Auto) 1.0 H, Eosinophils # (Auto) 0.0, Basophils # (Auto) 0.1, Calcium Level 8.8 11/09/18 05:19 Red Blood Count 3.83 L, Mean Corpuscular Volume 91.9, Mean Corpuscular Hemoglobin 29.0, Mean Corpuscular Hemoglobin Concent 31.5 L, Red Cell Distribution Width 13.6, Calcium Level 8.5 L Microbiology Microbiology 11/08/18 Blood Culture, Received Pending 11/08/18 Blood Culture, Received Pending GME ATTESTATION GME ATTESTATION My faculty preceptor for this patient encounter was physically present during the encounter and was fully available. All aspects of the patient interview, examination, medical decision making process, and medical care plan development were reviewed and approved by the faculty preceptor. The faculty preceptor is aware and concurs with the plan as stated in the body of this note and will attest to such by his/her cosignature. CINDY BHAKTA DO Nov 09, 2018 13:08
[2018-11-09 14:00] VITALS: BP 117/68
[2018-11-09] MEDS: CALCITONIN NASAL SPRAY 3.7 ML BTL SCH (14:16)
[2018-11-09 15:04] LABS: CPK CREATINE PHOSPHOKINASE 40 U/L (26-192); TROPONIN I < 0.02 NG/ML (< 0.10)
--- NOTE | 2018-11-09 16:53 | ECGEPIP ---
Stationary ECG Study [facility] Test Date: 2018-11-09 Pat Name: OSVALDO BRASWELL Department: Room: [place] [address] Gender: F Screenplay Writer: MICHELLE : 1955 Requested By: SOUMYA TUESDAY Order Number: [id number] Reading MD: Masoud Babb Measurements Intervals [place] Rate: 89 P: 79 PA: 169 QRS: 16 QRSD: 72 T: 42 QT: 313 QTc: 382 Interpretive Statements Normal sinus rhythm Low voltages with slow R wave progression; body habitus versus pulmonary disease Could not rule out prior septal infarction. No change from 11/08/18 Electronically Signed On 11-09-2018 16:53:18 EST by Masoud Babb
[2018-11-09] MEDS: ALPRAZolam 0.25 MG TAB PO PRN (21:35)
[2018-11-09 22:00] VITALS: BP 127/59
[2018-11-09] MEDS: DOCUSATE SODIUM 100 MG CAP PO PRN (22:07)
[2018-11-09] MEDS: SENNA 8.6 MG TAB (SENOKOT) PO PRN (22:07)
[2018-11-09] MEDS: NORCO, ANEXSIA 5/325MG TABLET (HYDROcodone/ACETAMINOPHEN) PO PRN (22:08)
[2018-11-10] MEDS: IPRATROPIUM 0.5MG/ALBUTEROL 2.5MG INH SOL UD 3ML (DUONEB)(J7620) NEB SCH ×7 (03:14→23:43)
[2018-11-10 06:00] VITALS: BP 160/71
[2018-11-10] MEDS: cefTRIAXone SOD 1 GM in D5W MINI-BAG PLUS 50 ML IV SCH (06:03)
[2018-11-10] MEDS: methylPREDNISolone INJ 40 MG/1 ML VIAL (J2920) IV SCH ×2 (06:04→17:19)
[2018-11-10] MEDS: HEPARIN SOD (PORCINE) 5000 UNITS/ML VIAL SC SCH ×3 (06:04→20:59)
[2018-11-10] MEDS: NORCO, ANEXSIA 5/325MG TABLET (HYDROcodone/ACETAMINOPHEN) PO PRN ×3 (06:09→19:52)
[2018-11-10 06:51] LABS: HEMATOCRIT 33.3 % (36.0-47.0); HEMOGLOBIN 10.7 g/dl (12.0-15.5); MEAN CORPUSCULAR HEMOGLOBIN 29.4 pg (27.0-33.0); MEAN CORPUSCULAR HGB CONC 32.1 g/dl (32.0-36.5); MEAN CORPUSCULAR VOLUME 91.5 fl (80.0-96.0); PLATELET COUNT, AUTOMATED 393 10^3/uL (150-450); RED BLOOD COUNT 3.64 10^6/uL (4.00-5.40)
[2018-11-10] MEDS: ADVAIR HFA 230/21MCG INHALER INH SCH ×2 (07:10→21:39)
[2018-11-10 07:17] LABS: BLOOD UREA NITROGEN 15 MG/DL (7-18); CALCIUM LEVEL 8.3 MG/DL (8.8-10.2); CARBON DIOXIDE LEVEL 39 MEQ/L (21-32); CHLORIDE LEVEL 92 MEQ/L (98-107); CREATININE FOR GFR 0.37 MG/DL (0.55-1.30); GLOMERULAR FILTRATION RATE > 60.0 (>45); GLUCOSE, FASTING 97 MG/DL (70-100); POTASSIUM SERUM 4.1 MEQ/L (3.5-5.1); SODIUM LEVEL 133 MEQ/L (136-145)
[2018-11-10] MEDS: FLUTICASONE PROP 0.05% NASAL SPRAY 16 GM (FLONASE) SCH ×2 (09:46→21:33)
[2018-11-10 14:00] VITALS: BP 132/70
[2018-11-10 14:22] LABS: ANTI DOUBLE STRAND-DNA AB 2 IU/mL (0-9); ANTINUCLEAR ANTIBODIES DIRECT Negative (Negative)
[2018-11-10] MEDS: CALCITONIN NASAL SPRAY 3.7 ML BTL SCH (14:34)
--- NOTE | 2018-11-10 15:10 | ECHO ---
DATE OF PROCEDURE: 11/08/2018 REFERRING PROVIDER: Emergency room (ER) provider/Dr. Pham. PATIENT LOCATION: Emergency department. REASON FOR ECHOCARDIOGRAM: Pericardial effusion. 2D MEASUREMENTS: IVS: 0.9 cm LV: 3.5 cm LVPW: 0.9 cm LA: 3.3 cm Aorta: 3.6 cm IVC: 2.0 cm 2D COMMENTS: 1. Normal left ventricular size, wall thickness, and normal global left ventricular systolic function. The estimated global left ventricular systolic ejection fraction is 65-70%. 2. Normal left atrium. Normal right atrium and right ventricle. Mild indentation noted on the free wall of the right atrium with atrial . 3. The atrial septum appeared to be normal without evidence of defect or shunt. 4. Normal aortic root. 5. Moderate pericardial effusion noted; no evidence of cardiac tamponade. There were echogenic findings noted in the pericardial fluid that may represent fibrinous material. 6. Minimally calcified aortic valve with normal leaflet excursion. Normal mitral valve, tricuspid valve. The pulmonic valve and proximal pulmonary artery branches were not well visualized. 7. The inferior vena cava was mildly enlarged but with good respiratory collapse. DOPPLER: No significant valvular abnormality detected. There may be trace mitral regurgitation and trace tricuspid regurgitation in limited views. Abnormal relaxation pattern was noted across the mitral valve leaflets and mitral valve annulus. IMPRESSION: 1. Normal global left ventricular systolic function. There were some features of left ventricular diastolic dysfunction manifested by abnormal relaxation. 2. Aortic valve sclerosis without stenosis or aortic regurgitation. 3. Moderate pericardial effusion noted; no evidence of cardiac tamponade. There may be fibrinous material in the pericardial fluid. 4. This study was compared with most recent echocardiogram on 11/30/2017; no remarkable changes. The above findings were discussed with the ER provider.
--- NOTE | 2018-11-10 18:05 | IPNPDOC ---
Subjective Date Seen The patient was seen on 11/10/18. Subjective Chief Complaint/HPI Patient notes shortness of breath improved from admission. Constitutional: Denies: Chills, Fever Objective Physical Examination General Exam: Positive: Alert, No Acute Distress Eye Exam: Positive: PERRLA ENT Exam: Positive: Atraumatic Neck Exam: Positive: Supple Chest Exam: Positive: Rhonchi, Wheezing Heart Exam: Positive: Rate Normal, Rubs Abdomen Exam: Positive: Normal bowel sounds Extremity Exam: Negative: Edema Skin Exam: Positive: Nl turgor and temperature Assessment /Plan Problems (1) COPD exacerbation Problem Text: 11/10 Taper steroid. Improvement in symptoms today. Monitor oxygen, continue to titrate. Discuss possible discharge tomorrow. On steroids for COPD exacerbation, Methylprednisolone 40 mg Q12H. Also on a ntibiotics, Ceftriaxone q24h and Azithromycin Q24h started 11/09/18. Nebulizers scheduled and as needed. (2) Pericardial effusion Status: Acute Problem Text: Patient has chronic pericardial effusion. Noted on CT scan of chest. Pericardial rub noted on exam. Monitor patient's symptoms and vitals. On steroids for COPD exacerbation. (3) Lupus Problem Text: Patient was diagnosed with Lupus. Sees Rheumatology in [place]. Likely the cause of pericardial effusion. (4) Musculoskeletal back pain Status: Acute Problem Text: Patient has chronic musculoskeletal pain. (5) COPD (chronic obstructive pulmonary disease) Status: Acute Problem Text: On advair. (6) Anxiety Status: Chronic Problem Text: On xanax 0.25 as needed. Plan/VTE VTE Prophylaxis Ordered?: Yes (Heparin q8h) VS, [facility]&O[facility] Vital Signs/I&O Vital Signs Date Time Temp Pulse Resp B/P (MAP) Pulse Ox O2 Delivery O2 Flow Rate FiO2 11/10/18 14:00 97.7 94 19 132/70 (90) 95 3.0 11/08/18 23:30 Nasal Cannula I&O- Last 24 Hours up to 6 AM 11/10/18 06:00 Intake Total 950 ml Output Total 0 ml Balance 950 ml Laboratory Data 24H LABS Laboratory Tests 2 11/10/18 06:37: Nucleated Red Blood Cells % (auto) 0.0, Anion Gap 2L, Glomerular Filtration Rate > 60.0, Blood Urea Nitrogen 15#, Creatinine 0.37L, Sodium Level 133L, Potassium Level 4.1, Chloride Level 92L, Carbon Dioxide Level 39H, Calcium Level 8.3L CBC/BMP Laboratory Tests 11/10/18 06:37 Red Blood Count 3.64 L, Mean Corpuscular Volume 91.5, Mean Corpuscular Hemoglobin 29.4, Mean Corpuscular Hemoglobin Concent 32.1, Red Cell Distribution Width 13.6, Calcium Level 8.3 L Microbiology Microbiology 11/08/18 Blood Culture - Preliminary, Resulted No growth after 24 hours . All specim... 11/08/18 Blood Culture - Preliminary, Resulted No growth after 24 hours . All specim... GME ATTESTATION GME ATTESTATION My faculty preceptor for this patient encounter was physically present during the encounter and was fully available. All aspects of the patient interview, examination, medical decision making process, and medical care plan development were reviewed and approved by the faculty preceptor. The faculty preceptor is aware and concurs with the plan as stated in the body of this note and will attest to such by his/her cosignature. CINDY BHAKTA DO Nov 10, 2018 18:05
[2018-11-10] MEDS: SERTRALINE HCL 50 MG TAB PO SCH (20:58)
[2018-11-10] MEDS: DOCUSATE SODIUM 100 MG CAP PO PRN (21:33)
[2018-11-10] MEDS: SENNA 8.6 MG TAB (SENOKOT) PO PRN (21:33)
[2018-11-10 22:00] VITALS: BP 138/74
[2018-11-10] MEDS: AZITHROMYCIN INJ 500 MG, VIAL MATE ADAPTER 1 EACH in D5W 250 ML IV SCH (23:10)
[2018-11-11 00:09] LABS: ANA (HEP2) Positive (.)
[2018-11-11] MEDS: IPRATROPIUM 0.5MG/ALBUTEROL 2.5MG INH SOL UD 3ML (DUONEB)(J7620) NEB SCH ×3 (04:32→11:21)
[2018-11-11] MEDS: HEPARIN SOD (PORCINE) 5000 UNITS/ML VIAL SC SCH ×2 (05:32→14:41)
[2018-11-11] MEDS: cefTRIAXone SOD 1 GM in D5W MINI-BAG PLUS 50 ML IV SCH (05:32)
[2018-11-11 06:00] VITALS: BP 124/67
[2018-11-11 06:53] LABS: HEMATOCRIT 34.4 % (36.0-47.0); MEAN CORPUSCULAR VOLUME 90.8 fl (80.0-96.0); PLATELET COUNT, AUTOMATED 398 10^3/uL (150-450); RED BLOOD COUNT 3.79 10^6/uL (4.00-5.40); WHITE BLOOD COUNT 11.3 10^3/uL (4.0-10.0)
[2018-11-11 07:16] LABS: BLOOD UREA NITROGEN 10 MG/DL (7-18); CALCIUM LEVEL 8.1 MG/DL (8.8-10.2); CARBON DIOXIDE LEVEL 36 MEQ/L (21-32); CHLORIDE LEVEL 93 MEQ/L (98-107); CREATININE FOR GFR 0.35 MG/DL (0.55-1.30); GLOMERULAR FILTRATION RATE > 60.0 (>45); GLUCOSE, FASTING 92 MG/DL (70-100); POTASSIUM SERUM 3.9 MEQ/L (3.5-5.1); SODIUM LEVEL 134 MEQ/L (136-145)
[2018-11-11] MEDS: ADVAIR HFA 230/21MCG INHALER INH SCH (07:26)
[2018-11-11] MEDS ORDERED: predniSONE 20 MG TAB PO SCH (09:00)
[2018-11-11] MEDS: FLUTICASONE PROP 0.05% NASAL SPRAY 16 GM (FLONASE) SCH (09:18)
[2018-11-11] MEDS: NORCO, ANEXSIA 5/325MG TABLET (HYDROcodone/ACETAMINOPHEN) PO PRN (09:18)
[2018-11-11] MEDS ORDERED: DOXY-350 PO (10:38)
[2018-11-11] MEDS ORDERED: AZIT500T2 PO (10:38)
[2018-11-11] MEDS ORDERED: PRED10TA2 PO (11:52)
[2018-11-11] MEDS ORDERED: IPRA0.00 NEB (11:52)
--- NOTE | 2018-11-11 11:54 | DS.PDOC ---
Discharge Summary General Date of Admission Nov 08, 2018 at 23:01 Date of Discharge November 11, 2018 Primary Care Physician: LUZ CAST PA-C Attending Physician: Sammy Menendez M.D. Discharge Summary PROCEDURES PERFORMED DURING STAY: Echocardiogram. 1. Normal global left ventricular systolic function. There were some features of left ventricular diastolic dysfunction manifested by abnormal relaxation. 2. Aortic valve sclerosis without stenosis or aortic regurgitation. 3. Moderate pericardial effusion noted; no evidence of cardiac tamponade. There may be fibrinous material in the pericardial fluid. 4. This study was compared with most recent echocardiogram on 11/30/2017; no remarkable changes. The above findings were discussed with the ER provider. ADMITTING DIAGNOSES: 1. COPD 2. Pericardial effusion 3. Mood disorder DISCHARGE DIAGNOSES: 1. COPD exacerbation 2. Pericardial effusion secondary to lupus 3. Lupus 4. Anxiety COMPLICATIONS/CHIEF COMPLAINT: COPD Exacerbation, Pericardial Effusion. HISTORY OF PRESENT ILLNESS: The patient is a 63-year-old female with significant past medical history of chronic obstructive pulmonary disease (COPD), Lupus, pericardial effusion presented to the ER with dyspnea, wheezing and nonproductive cough. Has felt like this for a couple days. Was previously here for COPD exacerbation in Sep, discharged 09/30/18. She denies fevers, chills. Denies sick contacts. CT angiogram was performed in the emergency room which showed a moderate pericardial effusion, changes consistent with bullousemphysema and mild hazy increased density upper lungs which could represent infiltrates. Notably in patient's history she also had a pericardial effusion back on 11/22/2017. There was a planned drain by Dr. Madison but this was cancelled and patient has not follow up with cardiothoracic surgeon. This pericardial effusion can be secondary to her infectious etiology or to her Lupus . 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 She has no recent history of cardiac surgery. She denies any chest pain. She denies any abdominal pain, constipation, diarrhea, urinary symptoms, nausea or vomiting. HOSPITAL COURSE: Patient was hospitalized and started on IV antibiotics, steroids. Over the next couple days here breathing improved and cough became productive. Patient uses oxygen at home when ambulating and sleeping. She continued to deny chest pain, palpitations. Her shortness of breath improved and was on the amount of oxygen she is at home. The productive cough improved. Patient remained afebrile, normal WBC. She was on oral medications and eligible for discharge. She has nebulizer at home to continue therapy as needed. DISCHARGE MEDICATIONS: Please see below. ALLERGIES: Please see below. PHYSICAL EXAMINATION ON DISCHARGE: VITAL SIGNS: Please see below. GENERAL: Alert, cooperative. HEENT: Atraumatic. NECK: Supple. CARDIOVASCULAR EXAMINATION: Normal s1, s2. No murmurs, rubs. RESPIRATORY EXAMINATION: Mild expiratory wheezing throughout. ABDOMINAL EXAMINATION: Soft, nondistended. Nontender. EXTREMITIES: No lower extremity edema. SKIN: No rashes, lesions. NEUROLOGICAL EXAMINATION: Speech intact. PSYCHIATRIC EXAMINATION: Normal affect. LABORATORY DATA: Please see below. IMAGING:CXR Mild cardiomegaly, hiatal hernia. No acute infiltrate Chest CT 1. There is a moderate pericardial effusion measuring 1.5 CM in thickness and significant. Recommend correlation with echo. 2. Changes of bullous emphysema especially right and left upper lobe. Mild hazy increased density in the upper lungs could be the result of mild interstitial symmetric infiltrates. Please see above comments. 3. Moderate compression deformities of multiple thoracic vertebra causing kyphosis. PROGNOSIS: Stable ACTIVITY: As tolerated. DIET: COPD DISCHARGE PLAN: Discharge patient home. DISPOSITION:Home DISCHARGE INSTRUCTIONS: 1. Follow up with PCP in the next week 2. Follow up with Rheumatology 3. Steroid taper as prescribed 4. Continue abx and nebulizers until see PCP. ITEMS TO FOLLOWUP ON ON OUTPATIENT: 1. Rheumatology appointment DISCHARGE CONDITION: Stable. TIME SPENT ON DISCHARGE: Greater than 30 minutes. Vital Signs/I&Os Vital Signs Date Time Temp Pulse Resp B/P (MAP) Pulse Ox O2 Delivery O2 Flow Rate FiO2 11/11/18 09:48 18 11/11/18 09:20 2.0 11/11/18 06:00 98.7 82 124/67 (86) 95 11/08/18 23:30 Nasal Cannula I&O- Last 24 Hours up to 6 AM 11/11/18 06:00 Intake Total 2255 ml Output Total 0 ml Balance 2255 ml Laboratory Data Labs 24H Laboratory Tests 2 11/11/18 06:37: Nucleated Red Blood Cells % (auto) 0.0, Anion Gap 5L, Glomerular Filtration Rate > 60.0, Blood Urea Nitrogen 10, Creatinine 0.35L, Sodium Level 134L, Potassium Level 3.9, Chloride Level 93L, Carbon Dioxide Level 36H, Calcium Level 8.1L CBC/BMP Laboratory Tests 11/11/18 06:37 Red Blood Count 3.79 L, Mean Corpuscular Volume 90.8, Mean Corpuscular Hemoglobin 29.0, Mean Corpuscular Hemoglobin Concent 32.0, Red Cell Distribution Width 13.4, Calcium Level 8.1 L Microbiology Microbiology 11/08/18 Blood Culture - Preliminary, Resulted No Growth after 48 hours. All Specime... 11/08/18 Blood Culture - Preliminary, Resulted No Growth after 48 hours. All Specime... Discharge Medications Scheduled Albuterol/Ipratropium (Ipratropium [place]/Albut 0.5-2.5 (3) mg/3Ml) 1 Gela Gela, 1 GELA INH DAILY, (Reported) Albuterol/Ipratropium (Ipratropium [place]/Albut 0.5-2.5 (3) mg/3Ml) 1 Gela Gela, 3 ML NEB RQ6H Azithromycin (Azithromycin) 500 Mg Tab, 1 TAB PO DAILY Calcitonin [place] (Calcitonin-Everton) 30 Sprays/3.7 Ml Naspr, 1 SPRAY NA QPM, (Reported) TAKES AT 1500; ALTERNATES NOSTRILS: ONE NOSTRIL EACH DAY Doxycycline Hyclate (Doxycycline) 100 Mg Cap, 1 CAP PO BID Ergocalciferol (Vitamin D) 50,000 Unit Cap, 50,000 UNIT PO 1XWK, (Reported) MONDAYS Fluticasone Propionate (Flonase Allergy Relief) 50 Mcg/Act Spr, 1 SPRAY NA BID, (Reported) Prednisone (Prednisone) 10 Mg Tab, 10 MG PO TAPER Take 4 tabs daily x 3 days, then 3 tabs daily x 3 days, then 2 tabs daily x 3 days, then 1 tab daily x 3 days and stop Salmeterol/Fluticasone (Advair Diskus 500-50 Mcg/Dose) 28 Puff/Inhaler Aerp, 1 PUFF INH BID, (Reported) Sertraline Hcl (Zoloft) 50 Mg Tab, 50 MG PO QHS, (Reported) Scheduled PRN Acetaminophen/Hydrocodone (Hydrocodone/Acetaminophen 5-325 mg) 1 Tab Tab, 1 TAB PO DAILY PRN for PAIN, (Reported) Albuterol Sulfate (Albuterol Sulfate) 2.5 Mg/3 Ml Nebu, 2.5 MG INH QID PRN for SHORTNESS OF BREATH, (Reported) Alprazolam (Xanax) 0.25 Mg Tab, 0.25 MG PO DAILY PRN for ANXIETY, (Reported) Calcium Carbonate (Tums) 500 Mg Chw, 500 MG PO BID PRN for INDIGESTION, (Reported) Docusate Sodium (Dok) 100 Mg Tab, 100 MG PO DAILY PRN for CONSTIPATION, (Reported) CAN TAKE SECOND CAPSULE IF NEEDED Allergies Coded Allergies: Aspirin (Verified Adverse Reaction, Mild, nausea and vomiting, 12/14/17) GME ATTESTATION GME ATTESTATION My faculty preceptor for this patient encounter was physically present during the encounter and was fully available. All aspects of the patient interview, examination, medical decision making process, and medical care plan development were reviewed and approved by the faculty preceptor. The faculty preceptor is aware and concurs with the plan as stated in the body of this note and will attest to such by his/her cosignature. CINDY BHAKTA DO Nov 11, 2018 11:54
[2018-11-11] MEDS: ALPRAZolam 0.25 MG TAB PO PRN (13:33)
== END 2018-11-11 14:45 | disposition home or self-care (01) | DRG 140 ==
LOC: M ED 17:08 → EDBD 17:08 → M ED INP 23:01 → M MSPAV 23:50
PROVIDERS: ADMIT Internal Medicine; ATTEND Family Medicine
DX: J44.0 Chronic obstructive pulmonary disease with (acute) lower respiratory infection (principal); I31.3 Pericardial effusion (noninflammatory); F17.210 Nicotine dependence, cigarettes, uncomplicated; F39 Unspecified mood [affective] disorder; M32.12 Pericarditis in systemic lupus erythematosus; Z79.891 Long term (current) use of opiate analgesic; Z79.899 Other long term (current) drug therapy; Z79.1 Long term (current) use of non-steroidal anti-inflammatories (NSAID)

== ENCOUNTER → 2019-01-23 | Outpatient (REF) | payer BC ==
[~2019-01-23] MED LIST changes: +ADV500INH INH; +ALBU83IN INH; +AZIT500T2 PO; -CITA20TA4 PO; +CITA20TA6 PO; +DOXY-350 PO; +FLON1SPR; +IPRA0.00 INH; +MELO15TA28 PO; +SERT-141 PO; -SERT50TA PO; +ZOLO50TA PO
== END ==
LOC: M SFHCADAM 09:49
PROVIDERS: ATTEND Physician Assistant Medical
DX: E55.9 Vitamin D deficiency, unspecified (principal)

== ENCOUNTER 2019-06-16 10:25 | Observation (INO) | payer BC ==
[~2019-06-16] VITALS: Ht 177.8 cm; Wt 63.5 kg
[2019-06-16 11:08] LABS: BASO % 0.2 % (0.0-1.0); EOS % 0.2 % (0.0-3.0); HEMATOCRIT 34.9 % (36.0-47.0); HEMOGLOBIN 11.2 g/dl (12.0-15.5); LYMPH # 0.9 10^3/uL (1.5-5.0); LYMPH % 5.4 % (24.0-44.0); MEAN CORPUSCULAR HEMOGLOBIN 28.9 pg (27.0-33.0); MEAN CORPUSCULAR HGB CONC 32.1 g/dl (32.0-36.5); MEAN CORPUSCULAR VOLUME 90.2 fl (80.0-96.0); MONO # 1.2 10^3/uL (0.0-0.8); MONO % 7.5 % (0.0-5.0); NEUTROPHILS # 13.9 10^3/uL (1.5-8.5); NEUTROPHILS % 86.3 % (36.0-66.0); PLATELET COUNT, AUTOMATED 374 10^3/uL (150-450); RED BLOOD COUNT 3.87 10^6/uL (4.00-5.40); WHITE BLOOD COUNT 16.1 10^3/uL (4.0-10.0)
[2019-06-16] MEDS ORDERED: methylPREDNISolone INJ 125 MG/2 ML VIAL (J2930) IV ONE (11:15)
[2019-06-16] MEDS ORDERED: PERCOCET 5MG/325MG TAB PO ONE (11:15)
--- NOTE | 2019-06-16 11:20 | REP ---
PA and lateral chest: Comparisons are the portable chest dated 11/08/2018 and PA and lateral chest of 01/02/2018. There is chronic hyperinflation. There is chronic interstitial coarsening compatible with fibrosis, unchanged. There are no infiltrates or pleural effusions. There is a large fixed hiatal hernia with an air-fluid level, unchanged. Cardiac size is normal, the braden, mediastinum, skeletal structures are unremarkable. Impression: Chronic interstitial fibrosis. Chronic hyperinflation. No acute cardiopulmonary findings. Fixed hiatal hernia. Electronically Signed by Davey Zarco MD 06/16/2019 11:12 A
[2019-06-16] MEDS: IPRATROPIUM 0.5MG/ALBUTEROL 2.5MG INH SOL UD 3ML (DUONEB)(J7620) NEB PRN ×3 (11:23→14:05)
[2019-06-16 11:26] LABS: ABG BASE EXCESS 6.4 (-2.0-2.0); ABG HCO3 32.2 MEQ/L (22.0-26.0); ABG PARTIAL PRESSURE CO2 52.4 mmHg (35.0-45.0); ABG STANDARD HCO3 30.2 MEQ/L (22.0-26.0); ABG TOTAL CO2 33.9 MEQ/L (23.0-31.0); ABG pH (ARTERIAL) 7.407 UNITS (7.350-7.450)
[2019-06-16 11:39] LABS: ALBUMIN 3.3 GM/DL (3.2-5.2); ALT/SGPT 13 U/L (12-78); BILIRUBIN,DIRECT 0.1 MG/DL (0.0-0.2); BILIRUBIN,TOTAL 0.4 MG/DL (0.2-1.0); BLOOD UREA NITROGEN 7 MG/DL (7-18); CALCIUM LEVEL 8.8 MG/DL (8.8-10.2); CARBON DIOXIDE LEVEL 34 MEQ/L (21-32); CHLORIDE LEVEL 88 MEQ/L (98-107); CK-MB VALUE MASS 2.4 NG/ML (<3.6); CPK CREATINE PHOSPHOKINASE 66 U/L (26-192); CREATININE FOR GFR 0.47 MG/DL (0.55-1.30); GLOMERULAR FILTRATION RATE > 60.0 (>45); GLUCOSE, FASTING 96 MG/DL (70-100); MB/CK RELATIVE INDEX 3.64 (< OR =4); NT-PRO BNP 151 PG/ML (<125); POTASSIUM SERUM 4.3 MEQ/L (3.5-5.1); SODIUM LEVEL 129 MEQ/L (136-145); TROPONIN I < 0.02 NG/ML (< 0.10)
[2019-06-16 12:04] LABS: INFLUENZA A AMPLIFICATION NEGATIVE (NEGATIVE); INFLUENZA B AMPLIFICATION NEGATIVE (NEGATIVE)
[2019-06-16] MEDS ORDERED: COLA100C5 PO (15:32)
[2019-06-16] MEDS ORDERED: RA S8.6T3 PO (15:32)
[2019-06-16] MEDS ORDERED: MELO15TA28 PO (15:32)
[2019-06-16] MEDS ORDERED: VITA-144 PO (15:32)
[2019-06-16] MEDS: IPRATROPIUM 0.5MG/ALBUTEROL 2.5MG INH SOL UD 3ML (DUONEB)(J7620) NEB SCH ×2 (16:00→20:28)
[2019-06-16] MEDS ORDERED: CALCIUM CARBONATE 500 MG CHEW U/D PO PRN (16:00)
[2019-06-16] MEDS ORDERED: SENNA 8.6 MG TAB (SENOKOT) PO PRN (16:00)
[2019-06-16] MEDS ORDERED: DOCUSATE SODIUM 100 MG CAP PO PRN (16:00)
--- NOTE | 2019-06-16 16:13 | HPEPDOC ---
General Date of Admission 06/16/19 Date of Service: Jun 16, 2019 Primary Care Physician: LUZ CAST PA-C Attending Physician: FAM QUINTANILLA MD Chief Complaint The patient is a 63-year-old female admitted with a reason for visit of SOB. 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 Patient was found hypoxic in ED she received DuoNeb nebulizer treatment along with IV steroids and we will called in to admit patient for further management. Patient complaining of cough with large amount of whitish yellowish sputum. No nausea, vomiting, no chest pain, no dizziness, etc. Home Medications Scheduled Calcitonin [place] (Calcitonin-[place]) 30 Sprays/3.7 Ml Naspr, 1 SPRAY NA QPM, (Reported) TAKES AT 1500; ALTERNATES NOSTRILS: ONE NOSTRIL EACH DAY Cholecalciferol (Vitamin D3) (Vitamin D3) 1,000 Unit Tablet, 1,000 UNIT PO QPM, (Reported) Meloxicam (Meloxicam) 15 Mg Tablet, 15 MG PO DAILY, (Reported) Salmeterol/Fluticasone (Advair 500-50 Diskus) 28 Puff/Inhaler Aerp, 1 PUFF INH BID, (Reported) Sertraline Hcl (Zoloft) 50 Mg Tab, 50 MG PO QHS, (Reported) Scheduled PRN Albuterol Sulf (Albuterol Sulfate) 2.5 Mg/3 Ml Nebu, 2.5 MG INH QID PRN for S HORTNESS OF BREATH, (Reported) Alprazolam (Xanax) 0.25 Mg Tab, 0.25 MG PO DAILY PRN for ANXIETY, (Reported) Calcium Carbonate (Tums) 500 Mg Chw, 500 MG PO BID PRN for INDIGESTION, (Reported) Docusate Sodium (Colace) 100 Mg Capsule, 100 MG PO DAILY PRN for CONSTIPATION, (Reported) Hydrocodone/Acetaminophen (Hydrocodone-Acetamin 5-325 mg) 1 Tab Tab, 1 TAB PO DAILY PRN for PAIN, (Reported) Sennosides (Senna Lax) 8.6 Mg Tablet, 8.6 MG PO DAILY PRN for CONSTIPATION, (Reported) Allergies Coded Allergies: aspirin (Verified Adverse Reaction, Mild, NAUSEA AND VOMITING, 06/16/19) Past Medical History Medical History COPD, arthritis, questionable history of lupus and autoimmune pericardial effusion Surgical History Cholecystectomy Family History Significant Family History: No pertinent family hx Social History * Smoker: current smoker Alcohol: Denies Drugs: denies A-FIB/CHADSVASC A-FIB History Current/History of A-Fib/PAF?: No Review of Systems Constitutional: Denies: Chills, Fever, Malaise, Night Sweats, Weakness, Fatigue, Weight Loss, Lethargy, Other Eyes: Denies: Pain, Vision change, Conjunctivae inflammation, Eyelid inflammation, Redness, Other ENT: Reports: Sinus Congestion Skin: Denies: Rash, Lesions, Jaundice, Bruising, Itching, Dry, Breakdown, Nail Changes, Other Pulmonary: Reports: Dyspnea Cardiovascular: Denies: Chest Pain, Palpitations, Orthopnea, Paroxysmal Noc. Dyspnea, Edema, Lt Headedness, Other Symptoms Gastrointestinal: Denies: Nausea, Vomiting, Abdominal Pain, Diarrhea, Const ipation, Melena, Hematochezia, Other Symptoms Genitourinary: Denies: Dysuria, Frequency, Incontinence, Hematuria, Retention, Other Symptoms Hematologic: Denies: Bruising, Bleeding Excessively, Petecchia, Purpura, Enlarged Lymph Nodes, Other Hematologic Musculoskeletal: Denies: Neck Pain, Back Pain, Shoulder Pain, Arm Pain, Hand Pain, Leg Pain, Foot Pain, Joint Pain, Muscle Pain, Spasms, Other Symptoms Neurological: Denies: Weakness, Numbness, Incoordination, Change in speech, Confusion, Seizures, Other Symptoms Psych: Denies: Mood Normal, Anxiety, Depression, Memory Issues, Thoughts of Self Harm, Anger, Thoughts of Harming Other, Other Psych Physical Examination General Exam: Positive: Alert Eye Exam: Positive: PERRLA, Conjunctiva & lids normal ENT Exam: Positive: Atraumatic, Mucous membr. moist/pink Neck Exam: Positive: Supple Chest Exam: Positive: Wheezing (. Bilateral expiratory wheezing audible) Heart Exam: Positive: Rate Normal, Normal S1, Normal S2 Abdomen Exam: Positive: Normal bowel sounds, Soft Extremity Exam: Positive: Normal pulses Skin Exam: Positive: Nl turgor and temperature Neuro Exam: Positive: Strength at 5/5 X4 ext, Sensation Intact Psych Exam: Positive: Mental status NL, Mood NL, Oriented x 3 Vital Signs Vital Signs Date Time Temp Pulse Resp B/P (MAP) Pulse Ox O2 Delivery O2 Flow Rate FiO2 06/16/19 15:10 73 Nasal Cannula 06/16/19 13:00 95 118/61 (80) 06/16/19 11:50 18 3.0 06/16/19 10:43 98.8 Laboratory Data Labs 24H Laboratory Tests 2 06/16/19 10:51: Immature Granulocyte % (Auto) 0.4, White Blood Count 16.1H, Red Blood Count 3.87L, Hemoglobin 11.2L, Hematocrit 34.9L, Mean Corpuscular Volume 90.2, Mean Corpuscular Hemoglobin 28.9, Mean Corpuscular Hemoglobin Concent 32.1, Red Cell Distribution Width 14.1, Platelet Count 374, Neutrophils (%) (Auto) 86.3H, Lymphocytes (%) (Auto) 5.4L, Monocytes (%) (Auto) 7.5H, Eosinophils (%) (Auto) 0.2, Basophils (%) (Auto) 0.2, Neutrophils # (Auto) 13.9H, Lymphocytes # (Auto) 0.9L, Monocytes # (Auto) 1.2H, Eosinophils # (Auto) 0.0, Basophils # (Auto) 0.0, Nucleated Red Blood Cells % (auto) 0.0, Anion Gap 7L, Glomerular Filtration Rate > 60.0, Calcium Level 8.8, Aspartate Amino Transf (AST/SGOT) 10, Alanine Amino transferase (ALT/SGPT) 13, Alkaline Phosphatase 100, Total Bilirubin 0.4, Direct Bilirubin 0.1, Total Creatine Kinase 66, Creatine Kinase MB 2.4, Creatine Kinase MB Relative Index 3.64, Troponin I < 0.02, LL-Eys-T-Type Natriuretic Peptide 151H, Total Protein 7.0, Albumin 3.3, Albumin/Globulin Ratio 0.89L, Thyroid Stimulating Hormone (TSH) 1.700 06/16/19 11:13: Blood Gas Bicarbonate Standard 30.2H, Arterial Blood pH 7.407, Arterial Blood Partial Pressure CO2 52.4H, Arterial Blood Partial Pressure O2 79.0, Arterial Blood Total CO2 33.9H, Arterial Blood HCO3 32.2H, Arterial Blood Base Excess 6.4H, Arterial Blood Oxygen Saturation 96.0 06/16/19 11:25: Influenza Type A (RT-PCR) NEGATIVE, Influenza Type B (RT-PCR) NEGATIVE CBC/BMP Laboratory Tests 06/16/19 10:51 Red Blood Count 3.87 L, Mean Corpuscular Volume 90.2, Mean Corpuscular Hemoglobin 28.9, Mean Corpuscular Hemoglobin Concent 32.1, Red Cell Distribution Width 14.1, Neutrophils (%) (Auto) 86.3 H, Lymphocytes (%) (Auto) 5.4 L, Monocytes (%) (Auto) 7.5 H, Eosinophils (%) (Auto) 0.2, Basophils (%) (Auto) 0.2, Neutrophils # (Auto) 13.9 H, Lymphocytes # (Auto) 0.9 L, Monocytes # (Auto) 1.2 H, Eosinophils # (Auto) 0.0, Basophils # (Auto) 0.0 Problems (1) COPD with acute exacerbation Status: Acute Problem Text: 62 years old white female with past medical history of COPD, active smoker presented again with exacerbation of COPD. Chest x-ray is essentially shows chronic changes but no new infiltrate. WBC count is slightly elevated. Etiology infection is unknown. Patient will be treated for exacerbation of COPD as well as with by mouth antibiotics for possible sinus infection. Admit to [facility] floor DuoNeb every 4 hours Until neb every 2 hours when necessary Solu-Medrol 60 mg IV every 8 hours Oxygen support by 2 L nasal cannula and 2-1/2 later at home Levaquin 500 milligrams by mouth daily Continue home meds DVT prophylaxis with Lovenox Robutussin AC for cough when necessary Activity as tolerated Diet regular A.m. laboratory ordered (2) Acute sinusitis Status: Acute Problem Text: Respiratory panel Sputum for C&S Levaquin 500 mg by mouth daily (3) Anxiety Status: Chronic Problem Text: As per home meds (4) Osteoarthritis Status: Chronic Problem Text: Continue home meds Plan / VTE VTE Prophylaxis Ordered?: Yes FAM QUINTANILLA MD Jun 16, 2019 16:13
[2019-06-16 17:53] VITALS: BP 163/82
[2019-06-16] MEDS: guaiFENesin/CODEINE SYRUP 5 ML UDC PO PRN (18:11)
[2019-06-16] MEDS: LevoFLOXacin 500 MG TABLET PO SCH (18:11)
[2019-06-16] MEDS: NORCO, ANEXSIA 5/325MG TABLET (HYDROcodone/ACETAMINOPHEN) PO PRN ×2 (18:12→20:14)
[2019-06-16] MEDS: SERTRALINE HCL 50 MG TAB PO SCH (20:14)
[2019-06-16] MEDS: ALPRAZolam 0.25 MG TAB PO PRN (20:14)
[2019-06-16] MEDS: methylPREDNISolone INJ 125 MG/2 ML VIAL (J2930) IV SCH (20:15)
[2019-06-16] MEDS: ADVAIR HFA 230/21MCG INHALER INH SCH (20:20)
[2019-06-16 22:00] VITALS: BP 154/84
[2019-06-17] MEDS: IPRATROPIUM 0.5MG/ALBUTEROL 2.5MG INH SOL UD 3ML (DUONEB)(J7620) NEB SCH ×7 (00:39→23:24)
[2019-06-17] MEDS: methylPREDNISolone INJ 125 MG/2 ML VIAL (J2930) IV SCH ×3 (03:24→20:17)
[2019-06-17] MEDS: guaiFENesin/CODEINE SYRUP 5 ML UDC PO PRN ×4 (03:34→20:18)
[2019-06-17 06:00] VITALS: BP 125/75
[2019-06-17] MEDS: ADVAIR HFA 230/21MCG INHALER INH SCH ×2 (07:17→21:00)
[2019-06-17 07:38] LABS: HEMATOCRIT 33.6 % (36.0-47.0); HEMOGLOBIN 10.7 g/dl (12.0-15.5); MEAN CORPUSCULAR HEMOGLOBIN 29.1 pg (27.0-33.0); MEAN CORPUSCULAR HGB CONC 31.8 g/dl (32.0-36.5); MEAN CORPUSCULAR VOLUME 91.3 fl (80.0-96.0); PLATELET COUNT, AUTOMATED 363 10^3/uL (150-450); RED BLOOD COUNT 3.68 10^6/uL (4.00-5.40); WHITE BLOOD COUNT 10.8 10^3/uL (4.0-10.0)
[2019-06-17] MEDS: MELOXICAM (MOBIC) 7.5 MG TAB PO SCH (07:39)
[2019-06-17] MEDS: ENOXAPARIN 40 MG/0.4 ML SYRINGE (J1650) SC SCH (07:40)
[2019-06-17 07:55] LABS: BLOOD UREA NITROGEN 10 MG/DL (7-18); CALCIUM LEVEL 9.2 MG/DL (8.8-10.2); CARBON DIOXIDE LEVEL 36 MEQ/L (21-32); CHLORIDE LEVEL 92 MEQ/L (98-107); CREATININE FOR GFR 0.62 MG/DL (0.55-1.30); GLOMERULAR FILTRATION RATE > 60.0 (>45); GLUCOSE, FASTING 140 MG/DL (70-100); MAGNESIUM LEVEL 2.1 MG/DL (1.8-2.4); POTASSIUM SERUM 4.9 MEQ/L (3.5-5.1); SODIUM LEVEL 131 MEQ/L (136-145)
--- NOTE | 2019-06-17 08:12 | ECGEPIP ---
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
[2019-06-17 14:01] VITALS: BP 130/67
[2019-06-17] MEDS: CALCITONIN NASAL SPRAY 3.7 ML BTL SCH (15:15)
[2019-06-17] MEDS: VITAMIN D 1,000 INTERNATIONAL UNITS TABLET PO SCH (15:15)
[2019-06-17] MEDS: LevoFLOXacin 500 MG TABLET PO SCH (17:13)
[2019-06-17] MEDS: SERTRALINE HCL 50 MG TAB PO SCH (20:16)
[2019-06-17] MEDS: NORCO, ANEXSIA 5/325MG TABLET (HYDROcodone/ACETAMINOPHEN) PO PRN (20:17)
--- NOTE | 2019-06-17 21:03 | IPNPDOC ---
Subjective Date Seen The patient was seen on 06/17/19. Subjective Chief Complaint/HPI Ms. Smith reports she is feeling quite a bit better than when she came in yesterday. She is hoping that this visit is just a "tuneup". She expresses some caution about using levofloxacin as she has read some bad things about side effects. She expects to home on prednisone and wonders when she'll be changed over. She reports that the Robitussin-AC is helping her a lot and she hopes she could go home on it. General: Reports: Normal Appetite Constitutional: Denies: Chills, Fever Pulmonary: Reports: Dyspnea, Cough (improved on Robitussin-AC); Denies: Pleuritic Chest Pain Cardiovascular: Denies: Chest Pain, Palpitations Psych: Reports: Mood Normal Objective Physical Examination General Exam: Positive: Alert, Cooperative, No Acute Distress (sitting up in her bed talking on the phone when I entered the room) Eye Exam: Positive: Conjunctiva & lids normal; Negative: Sclera icteric ENT Exam: Positive: Mucous membr. moist/pink Neck Exam: Positive: Supple; Negative: Lymphadenopathy Chest Exam: Positive: Clear to auscultation, Diminished; Negative: Wheezing Heart Exam: Positive: Rate Normal, Normal S1, Normal S2 Abdomen Exam: Positive: Normal bowel sounds, Soft; Negative: Tenderness Extremity Exam: Negative: Edema Skin Exam: Positive: Nl turgor and temperature Neuro Exam: Positive: Normal Speech Psych Exam: Positive: Mental status NL, Mood NL, Oriented x 3 Assessment /Plan Problems (1) COPD exacerbation Status: Acute Response to Treatment: Improving Discussed With: Patient Problem Specific Plan: Monitor Clinically Problem Text: She seems to be doing quite well. I don't hear wheezes today. I anticipate we can change her to by mouth prednisone tomorrow. I ordered a pro- calcitonin level as I'm not convinced she needs on antibiotic at all. Apparently she reported some sinus tenderness and pressure on admission, but this seems to be resolved. She is now just requesting nasal saline for this. (2) Nicotine use disorder Status: Chronic Problem Text: She seems to be pre-contemplative with regards to cutting smoking. We'll continue to assess readiness to change. Plan/VTE VTE Prophylaxis Ordered?: Yes (Lovenox) Plan Anticipated Discharge: Home (1-2 days) VS, I&O, 24H, Fishbone Vital Signs/I&O Vital Signs Date Time Temp Pulse Resp B/P (MAP) Pulse Ox O2 Delivery O2 Flow Rate FiO2 06/17/19 20:17 17 06/17/19 20:09 Nasal Cannula 3.0 99 06/17/19 14:01 98.2 95 130/67 (88) 94 I&O- Last 24 Hours up to 6 AM 06/17/19 05:59 Intake Total 510 ml Balance 510 ml Laboratory Data 24H LABS Laboratory Tests 2 06/17/19 07:03: Nucleated Red Blood Cells % (auto) 0.0, Anion Gap 3L, Glomerular Filtration Rate > 60.0, Blood Urea Nitrogen 10, Creatinine 0.62, Sodium Level 131L, Potassium Level 4.9, Chloride Level 92L, Carbon Dioxide Level 36H, Calcium Level 9.2, Magnesium Level 2.1 CBC/BMP Laboratory Tests 06/17/19 07:03 Red Blood Count 3.68 L, Mean Corpuscular Volume 91.3, Mean Corpuscular Hemoglobin 29.1, Mean Corpuscular Hemoglobin Concent 31.8 L, Red Cell Distribution Width 14.0, Calcium Level 9.2 Microbiology Microbiology 06/16/19 Respiratory Virus Panel (PCR) ([facility]) - Final, Complete Carlito Morales MD Jun 17, 2019 9:03 pm
[2019-06-17] MEDS ORDERED: SODIUM CHLORIDE NASAL 0.65% SPRAY BTL (OCEAN) PRN (21:45)
[2019-06-17 23:25] VITALS: O2SAT 100
[2019-06-18] MEDS: IPRATROPIUM 0.5MG/ALBUTEROL 2.5MG INH SOL UD 3ML (DUONEB)(J7620) NEB SCH ×6 (03:48→23:16)
[2019-06-18] MEDS: methylPREDNISolone INJ 125 MG/2 ML VIAL (J2930) IV SCH (04:12)
[2019-06-18] MEDS: guaiFENesin/CODEINE SYRUP 5 ML UDC PO PRN ×3 (04:12→20:58)
[2019-06-18 05:54] LABS: BASO % 0.2 % (0.0-1.0); EOS % 0.2 % (0.0-3.0); HEMATOCRIT 33.4 % (36.0-47.0); HEMOGLOBIN 10.5 g/dl (12.0-15.5); LYMPH # 0.7 10^3/uL (1.5-5.0); LYMPH % 5.7 % (24.0-44.0); MEAN CORPUSCULAR HEMOGLOBIN 28.6 pg (27.0-33.0); MEAN CORPUSCULAR HGB CONC 31.4 g/dl (32.0-36.5); MONO # 0.9 10^3/uL (0.0-0.8); MONO % 6.8 % (0.0-5.0); NEUTROPHILS # 11.2 10^3/uL (1.5-8.5); NEUTROPHILS % 86.7 % (36.0-66.0); PLATELET COUNT, AUTOMATED 397 10^3/uL (150-450); RED BLOOD COUNT 3.67 10^6/uL (4.00-5.40); WHITE BLOOD COUNT 12.9 10^3/uL (4.0-10.0)
[2019-06-18 06:00] VITALS: BP 130/70
[2019-06-18 06:22] LABS: ALBUMIN 3.1 GM/DL (3.2-5.2); ALT/SGPT 17 U/L (12-78); BILIRUBIN,TOTAL 0.2 MG/DL (0.2-1.0); BLOOD UREA NITROGEN 15 MG/DL (7-18); CALCIUM LEVEL 8.8 MG/DL (8.8-10.2); CARBON DIOXIDE LEVEL 37 MEQ/L (21-32); CHLORIDE LEVEL 91 MEQ/L (98-107); GLOMERULAR FILTRATION RATE > 60.0 (>45); GLUCOSE, FASTING 122 MG/DL (70-100); POTASSIUM SERUM 4.6 MEQ/L (3.5-5.1); SODIUM LEVEL 131 MEQ/L (136-145); TOTAL PROTEIN 7.1 GM/DL (6.4-8.2)
[2019-06-18] MEDS: ADVAIR HFA 230/21MCG INHALER INH SCH ×2 (07:34→19:56)
[2019-06-18 07:35] VITALS: O2SAT 100
[2019-06-18] MEDS: ENOXAPARIN 40 MG/0.4 ML SYRINGE (J1650) SC SCH (08:11)
[2019-06-18] MEDS: MELOXICAM (MOBIC) 7.5 MG TAB PO SCH (08:11)
[2019-06-18] MEDS: ALPRAZolam 0.25 MG TAB PO PRN (08:11)
[2019-06-18] MEDS ORDERED: methylPREDNISolone INJ 40 MG/1 ML VIAL (J2920) IV SCH (09:00)
--- NOTE | 2019-06-18 09:25 | IPNPDOC ---
Subjective Date Seen The patient was seen on 06/18/19. Subjective Chief Complaint/HPI Pt this morning states that she is feeling much better. She has no new concerns. Her breathing is better, less SOB, less cough. Denies fevers or chills. Would like something for constipation, last BM Sat AM, very small and hard. Would like to be sent home with something for cough, what she is getting now in the hospital, works better than the tessalon she has been given in the past. She also would like a humidifier for her O2 at home. General: Denies: Fatigue Constitutional: Denies: Chills, Fever Skin: Denies: Rash Pulmonary: Reports: Dyspnea, Cough Cardiovascular: Denies: Chest Pain, Palpitations Gastrointestinal: Reports: Constipation; Denies: Nausea, Vomiting, Abdominal Pain, Diarrhea Musculoskeletal: Reports: Back Pain (chronic) Psych: Reports: Mood Normal Objective Physical Examination General Exam: Positive: Alert, Cooperative, No Acute Distress (sitting up in her bed talking on the phone when I entered the room) Eye Exam: Positive: Conjunctiva & lids normal; Negative: Sclera icteric ENT Exam: Positive: Mucous membr. moist/pink Neck Exam: Positive: Supple; Negative: Lymphadenopathy Chest Exam: Positive: Clear to auscultation, Diminished; Negative: Wheezing Heart Exam: Positive: Rate Normal, Normal S1, Normal S2 Abdomen Exam: Positive: Normal bowel sounds, Soft; Negative: Tenderness Extremity Exam: Negative: Edema Skin Exam: Positive: Nl turgor and temperature Neuro Exam: Positive: Normal Speech Psych Exam: Positive: Mental status NL, Mood NL, Oriented x 3 Assessment /Plan Problems (1) COPD exacerbation Status: Acute Response to Treatment: Improving Discussed With: Patient Problem Specific Plan: Monitor Clinically Problem Text: 06/18 Pt doing well this woody, will change to Prednisone today, anticipate DC home in AM. 06/17 She seems to be doing quite well. I don't hear wheezes today. I anticipate we can change her to by mouth prednisone tomorrow. I ordered a pro-calcitonin level as I'm not convinced she needs on antibiotic at all. Apparently she reported some sinus tenderness and pressure on admission, but this seems to be resolved. She is now just requesting nasal saline for this. (2) Nicotine use disorder Status: Chronic Response to Treatment: Stable Problem Text: She seems to be pre-contemplative with regards to cutting smoking. We'll continue to assess readiness to change. Plan/VTE VTE Prophylaxis Ordered?: Yes (Jolenetim) Plan Anticipated Discharge: Home (1-2 days) VS, I&O, 24H, Fishbone Vital Signs/I&O Vital Signs Date Time Temp Pulse Resp B/P (MAP) Pulse Ox O2 Delivery O2 Flow Rate FiO2 06/18/19 07:35 100 Nasal Cannula 3.0 06/18/19 06:00 98.1 88 20 130/70 (90) 06/17/19 23:25 99 I&O- Last 24 Hours up to 6 AM 06/18/19 05:59 Intake Total 1800 ml Balance 1800 ml Laboratory Data 24H LABS Laboratory Tests 2 06/18/19 05:13: Immature Granulocyte % (Auto) 0.4, White Blood Count 12.9H, Red Blood Count 3.67L, Hemoglobin 10.5L, Hematocrit 33.4L, Mean Corpuscular Volume 91.0, Mean Corpuscular Hemoglobin 28.6, Mean Corpuscular Hemoglobin Concent 31.4L, Red Cell Distribution Width 14.0, Platelet Count 397, Neutrophils (%) (Auto) 86.7H, Lymphocytes (%) (Auto) 5.7L, Monocytes (%) (Auto) 6.8H, Eosinophils (%) (Auto) 0.2, Basophils (%) (Auto) 0.2, Neutrophils # (Auto) 11.2H, Lymphocytes # (Auto) 0.7L, Monocytes # (Auto) 0.9H, Eosinophils # (Auto) 0.0, Basophils # (Auto) 0.0, Nucleated Red Blood Cells % (auto) 0.0, Anion Gap 3L, Glomerular Filtration Rate > 60.0, Blood Urea Nitrogen 15, Creatinine 0.60, Sodium Level 131L, Potassium Level 4.6, Chloride Level 91L, Carbon Dioxide Level 37H, Calcium Level 8.8, Aspartate Amino Transf (AST/SGOT) 12, Alanine Aminotransferase (ALT/SGPT) 17, Alkaline Phosphatase 83, Total Bilirubin 0.2, Total Protein 7.1, Albumin 3.1L, Albumin/Globulin Ratio 0.78L CBC/BMP Laboratory Tests 06/18/19 05:13 Red Blood Count 3.67 L, Mean Corpuscular Volume 91.0, Mean Corpuscular Hemoglobin 28.6, Mean Corpuscular Hemoglobin Concent 31.4 L, Red Cell Distribution Width 14.0, Neutrophils (%) (Auto) 86.7 H, Lymphocytes (%) (Auto) 5.7 L, Monocytes (%) (Auto) 6.8 H, Eosinophils (%) (Auto) 0.2, Basophils (%) (Auto) 0.2, Neutrophils # (Auto) 11.2 H, Lymphocytes # (Auto) 0.7 L, Monocytes # (Auto) 0.9 H, Eosinophils # (Auto) 0.0, Basophils # (Auto) 0.0, Calcium Level 8.8, Aspartate Amino Transf (AST/SGOT) 12, Alanine Aminotransferase (ALT/SGPT) 17, Alkaline Phosphatase 83, Total Bilirubin 0.2, Total Protein 7.1, Albumin 3.1 L Microbiology Microbiology 06/16/19 Respiratory Virus Panel (PCR) ([facility]) - Final, Complete LUZ CAST PA-C Jun 18, 2019 09:25
[2019-06-18] MEDS: DOCUSATE SODIUM 100 MG CAP PO SCH (10:10)
[2019-06-18] MEDS: predniSONE 20 MG TAB PO SCH (10:10)
[2019-06-18] MEDS: SENNA 8.6 MG TAB (SENOKOT) PO SCH (10:11)
[2019-06-18] MEDS: VITAMIN D 1,000 INTERNATIONAL UNITS TABLET PO SCH (14:30)
[2019-06-18] MEDS: CALCITONIN NASAL SPRAY 3.7 ML BTL SCH (14:31)
[2019-06-18 14:33] VITALS: BP 126/68
[2019-06-18] MEDS: NORCO, ANEXSIA 5/325MG TABLET (HYDROcodone/ACETAMINOPHEN) PO PRN (16:16)
[2019-06-18] MEDS: LevoFLOXacin 500 MG TABLET PO SCH (18:06)
[2019-06-18 20:20] VITALS: BP 142/71
[2019-06-18] MEDS: SERTRALINE HCL 50 MG TAB PO SCH (20:56)
[2019-06-19] MEDS: IPRATROPIUM 0.5MG/ALBUTEROL 2.5MG INH SOL UD 3ML (DUONEB)(J7620) NEB SCH ×2 (03:11→08:12)
[2019-06-19] MEDS: guaiFENesin/CODEINE SYRUP 5 ML UDC PO PRN ×2 (03:48→10:11)
[2019-06-19 05:39] VITALS: BP 140/72
[2019-06-19] MEDS: ADVAIR HFA 230/21MCG INHALER INH SCH (08:12)
[2019-06-19] MEDS ORDERED: GUAI1SOL7 PO (08:35)
[2019-06-19] MEDS ORDERED: LEVA1TAB2 PO (08:35)
[2019-06-19] MEDS ORDERED: PRED10TA2 PO (08:35)
[2019-06-19] MEDS ORDERED: COLA100C5 PO (08:35)
[2019-06-19] MEDS ORDERED: SENN18TA PO (08:35)
[2019-06-19] MEDS: ENOXAPARIN 40 MG/0.4 ML SYRINGE (J1650) SC SCH (09:00)
[2019-06-19] MEDS: SENNA 8.6 MG TAB (SENOKOT) PO SCH (09:51)
[2019-06-19] MEDS: DOCUSATE SODIUM 100 MG CAP PO SCH (09:51)
[2019-06-19] MEDS: predniSONE 20 MG TAB PO SCH (09:51)
[2019-06-19] MEDS: MELOXICAM (MOBIC) 7.5 MG TAB PO SCH (09:51)
--- NOTE | 2019-06-19 18:29 | DSES ---
DATE OF ADMISSION: 06/16/2019 DATE OF DISCHARGE: 06/19/2019 PRIMARY CARE PHYSICIAN: Luz Brito PA-C ATTENDING: Dr. Deandre Leos HISTORY: This is a 63-year-old female patient who has a history of chronic obstructive pulmonary disease (COPD), active smoker, who presented with increased shortness of breath and cough with white sputum production. She was admitted to the hospital for a COPD exacerbation and started on DuoNeb, Solu-Medrol, Levaquin, as well as Robitussin. She was continued on routine at-home medications. During her hospitalization, she has had steady improvement in her symptoms. She did have a chest x-ray on presentation, which was with only chronic changes. No acute findings were noted. She is eager to return home and feels comfortable in doing so today. She is eating and drinking well. DISCHARGE DIAGNOSIS: 1. Chronic obstructive pulmonary disease exacerbation. 2. Nicotine dependence. 3. Anxiety. DISCHARGE MEDICATIONS: - codeine/guaiphenesin 10 mL by mouth every 4 hours as needed for cough - docusate sodium 100 mg by mouth daily - Levaquin 500 mg daily times five days - prednisone 40 mg daily times one additional day, 30 mg daily times three days, 20 mg daily times three days, then 10 mg daily times three days - senna one tablet daily - albuterol sulfate nebulizer inhaled every 4-6 hours as needed for shortness of breath - Xanax 0.25 mg daily as needed for anxiety - calcitonin one spray intranasally daily - Tums 500 mg by mouth twice a day as needed for indigestion - vitamin D 1000 units by mouth at bedtime - hydrocodone/acetaminophen 5/325 one tablet daily as needed for pain - meloxicam 15 mg daily - Advair 500/50 one puff twice daily - sertraline 50 mg by mouth at bedtime DISCHARGE PLAN: Followup with Luz Brito in 1 week. Activity should be as tolerated. Diet is regular.
[2019-06-21] MEDS ORDERED: predniSONE 10 MG TAB PO SCH (09:00)
[2019-06-24] MEDS ORDERED: predniSONE 20 MG TAB PO SCH (09:00)
[2019-06-27] MEDS ORDERED: predniSONE 10 MG TAB PO SCH (09:00)
== END 2019-06-19 10:56 | disposition home or self-care (01) ==
LOC: EDBD 10:25 → M ED 10:25 → M ED INP 10:26 → M MS5PR 17:45
PROVIDERS: ADMIT Internal Medicine; ATTEND Family Medicine
DX: J44.1 Chronic obstructive pulmonary disease with (acute) exacerbation (principal); J01.90 Acute sinusitis, unspecified; F17.210 Nicotine dependence, cigarettes, uncomplicated; F41.9 Anxiety disorder, unspecified; M17.9 Osteoarthritis of knee, unspecified; Z88.8 Allergy status to other drugs, medicaments and biological substances; Z79.899 Other long term (current) drug therapy; Z79.51 Long term (current) use of inhaled steroids; Z79.52 Long term (current) use of systemic steroids
CPT/HCPCS: 36415; 36600; 71046; 80048; 80053; 80076; 82550; 82553; 82803; 83735; 83880; 84145; 84443; 84484; 85025; 85027; 87486; 87502; 87581; 87633; 87798; 93005; 93041; 94640; 96374; 96376; 99285; J1650; J2930

== ENCOUNTER 2022-02-07 18:10 | Inpatient (IN) | payer BC, SELFPAY ==
[~2022-02-07] VITALS: Ht 177.8 cm; Wt 54.9 kg
[~2022-02-07 18:10] MED LIST changes: +ALBU2.5V10 INH; -ALBU83IN INH; -AZIT500T2 PO; +AZIT500T5 PO; +COLA100C5 PO; -DOK100TA PO; +DOK100TA2 PO; +GUAI1SOL7 PO; +LEVA1TAB2 PO; +RA S8.6T3 PO; +SENN18TA PO; +VITA-144 PO
[2022-02-07 18:46] LABS: BASO % 0.1 % (0.0-1.0); HEMATOCRIT 32.1 % (36.0-47.0); HEMOGLOBIN 10.2 g/dl (12.0-15.5); LYMPH % 12.1 % (24.0-44.0); MEAN CORPUSCULAR HEMOGLOBIN 27.8 pg (27.0-33.0); MEAN CORPUSCULAR HGB CONC 31.8 g/dl (32.0-36.5); MEAN CORPUSCULAR VOLUME 87.5 fl (80.0-96.0); MONO # 0.9 10^3/uL (0.0-0.8); MONO % 11.1 % (2.0-8.0); NEUTROPHILS # 6.3 10^3/uL (1.5-8.5); NEUTROPHILS % 75.5 % (36.0-66.0); PLATELET COUNT, AUTOMATED 390 10^3/uL (150-450); RED BLOOD COUNT 3.67 10^6/uL (4.00-5.40); WHITE BLOOD COUNT 8.3 10^3/uL (4.0-10.0)
[2022-02-07 19:22] LABS: ALT/SGPT 12 U/L (12-78); BILIRUBIN,DIRECT 0.2 MG/DL (0.0-0.2); BILIRUBIN,TOTAL 0.3 MG/DL (0.2-1.0); BLOOD UREA NITROGEN 9 MG/DL (7-18); CALCIUM LEVEL 9.1 MG/DL (8.8-10.2); CARBON DIOXIDE LEVEL 34 MEQ/L (21-32); CHLORIDE LEVEL 80 MEQ/L (98-107); CREATININE FOR GFR 0.37 MG/DL (0.55-1.30); GLOMERULAR FILTRATION RATE > 60.0 (>45); GLUCOSE, FASTING 97 MG/DL (70-100); NT-PRO BNP 439 PG/ML (<125); SODIUM LEVEL 120 MEQ/L (136-145); THYROID STIMULATING HORMONE 0.974 uIU/ML (0.358-3.740); THYROXINE (T4) 10.1 UG/DL (4.5-12.0); TOTAL PROTEIN 7.4 GM/DL (6.4-8.2)
[2022-02-07] MEDS ORDERED: ISOVUE-370 76% 100ML VIAL As Ordered ONE (19:37)
[2022-02-07] MEDS ORDERED: methylPREDNISolone 125MG 2ML VIAL IV ONE (19:40)
[2022-02-07 19:47] LABS: OSMOLALITY SERUM 254 MOSM/KG (280-301)
[2022-02-07] MEDS ORDERED: IPRATROPIUM 0.02% SOLN 0.5MG 2.5ML NEB NEB ONE (20:10)
[2022-02-07] MEDS ORDERED: FUROSEMIDE 40MG/4ML VIAL (J1940) IV ONE (20:10)
[2022-02-07] MEDS ORDERED: LEVALBUTEROL 1.25 MG/0.5 ML CONCENTRATE NEB NEB ONE (20:10)
[2022-02-07 20:25] LABS: ABG BASE EXCESS 1.9 (-2.0-2.0); ABG HCO3 34.5 MEQ/L (22.0-26.0); ABG O2 SATURATION 99.9 % (95.0-99.0); ABG PARTIAL PRESSURE O2 348.4 mmHg (75.0-100.0); ABG STANDARD HCO3 26.2 MEQ/L (22.0-26.0); ABG TOTAL CO2 38.1 MEQ/L (23.0-31.0)
[2022-02-07 20:26] LABS: MAGNESIUM LEVEL 1.8 MG/DL (1.8-2.4)
[2022-02-07 20:28] LABS: ABG PARTIAL PRESSURE CO2 117.2 mmHg (35.0-45.0); ABG pH (ARTERIAL) 7.087 UNITS (7.350-7.450)
[2022-02-07 21:34] LABS: ABG BASE EXCESS 3.1 (-2.0-2.0); ABG HCO3 31.8 MEQ/L (22.0-26.0); ABG PARTIAL PRESSURE O2 87.3 mmHg (75.0-100.0); ABG STANDARD HCO3 27.2 MEQ/L (22.0-26.0); ABG pH (ARTERIAL) 7.263 UNITS (7.350-7.450)
[2022-02-07 21:39] LABS: ABG PARTIAL PRESSURE CO2 71.9 mmHg (35.0-45.0)
[2022-02-07 22:42] LABS: ABG HCO3 34.3 MEQ/L (22.0-26.0); ABG O2 SATURATION 97.4 % (95.0-99.0); ABG PARTIAL PRESSURE CO2 71.7 mmHg (35.0-45.0); ABG PARTIAL PRESSURE O2 104.2 mmHg (75.0-100.0); ABG STANDARD HCO3 29.9 MEQ/L (22.0-26.0); ABG TOTAL CO2 36.5 MEQ/L (23.0-31.0); ABG pH (ARTERIAL) 7.298 UNITS (7.350-7.450)
[2022-02-07] MEDS: NS 1,000 ML IV SCH (22:43)
[2022-02-07 22:45] LABS: CREATININE,RANDOM URINE 14.4 MG/DL
[2022-02-07] MEDS ORDERED: ALB2.5NEB INH (23:00)
[2022-02-07] MEDS ORDERED: HOME MED LIST COMPLETE! XX SCH (23:00)
[2022-02-07] MEDS ORDERED: MOM 30ML SUSPENSION UDC PO PRN (23:30)
[2022-02-08] VITALS (10 sets, daily range): BP systolic 111–154; BP diastolic 53–76
[2022-02-08] MEDS: AZITHROMYCIN INJ 500 MG, VIAL MATE ADAPTER 1 EACH in NS 250 ML IV SCH ×2 (01:04→23:44)
[2022-02-08] MEDS: IPRATROPIUM 0.5MG/ALBUTEROL 2.5MG INH SOL UD 3ML (DUONEB) NEB SCH ×4 (01:08→19:42)
[2022-02-08] MEDS ORDERED: KETOROLAC 30 MG/ML 1ML VIAL IV PRN (02:50)
[2022-02-08] MEDS: NS 1,000 ML IV SCH (03:30)
[2022-02-08] MEDS: methylPREDNISolone 125MG 2ML VIAL IV SCH ×3 (03:31→19:21)
[2022-02-08] MEDS: HEPARIN SOD (PORCINE) 5000UNITS/ML 1ML VIAL/SYRINGE SC SCH ×3 (06:20→21:39)
[2022-02-08 08:11] LABS: HEMATOCRIT 35.1 % (36.0-47.0); HEMOGLOBIN 10.7 g/dl (12.0-15.5); MEAN CORPUSCULAR HEMOGLOBIN 26.7 pg (27.0-33.0); MEAN CORPUSCULAR HGB CONC 30.5 g/dl (32.0-36.5); MEAN CORPUSCULAR VOLUME 87.5 fl (80.0-96.0); PLATELET COUNT, AUTOMATED 331 10^3/uL (150-450); RED BLOOD COUNT 4.01 10^6/uL (4.00-5.40)
[2022-02-08] MEDS: SYMBICORT 80/4.5MCG INHALER 6GM INH SCH ×2 (08:34→19:42)
[2022-02-08 08:39] LABS: ALBUMIN 3.2 GM/DL (3.2-5.2); ALT/SGPT 15 U/L (12-78); BILIRUBIN,TOTAL 0.3 MG/DL (0.2-1.0); BLOOD UREA NITROGEN 10 MG/DL (7-18); CALCIUM LEVEL 9.2 MG/DL (8.8-10.2); CARBON DIOXIDE LEVEL 34 MEQ/L (21-32); CHLORIDE LEVEL 81 MEQ/L (98-107); CREATININE FOR GFR 0.41 MG/DL (0.55-1.30); GLOMERULAR FILTRATION RATE > 60.0 (>45); GLUCOSE, FASTING 89 MG/DL (70-100); MAGNESIUM LEVEL 2.1 MG/DL (1.8-2.4); POTASSIUM SERUM 4.8 MEQ/L (3.5-5.1); SODIUM LEVEL 124 MEQ/L (136-145); TOTAL PROTEIN 7.6 GM/DL (6.4-8.2)
[2022-02-08 08:45] LABS: ABG BASE EXCESS 4.1 (-2.0-2.0); ABG HCO3 30.8 MEQ/L (22.0-26.0); ABG O2 SATURATION 98.1 % (95.0-99.0); ABG PARTIAL PRESSURE CO2 57.6 mmHg (35.0-45.0); ABG PARTIAL PRESSURE O2 106.3 mmHg (75.0-100.0); ABG STANDARD HCO3 28.1 MEQ/L (22.0-26.0); ABG TOTAL CO2 32.6 MEQ/L (23.0-31.0); ABG pH (ARTERIAL) 7.346 UNITS (7.350-7.450)
[2022-02-08 08:55] LABS: BLOOD UREA NITROGEN 10 MG/DL (7-18); CALCIUM LEVEL 8.9 MG/DL (8.8-10.2); CARBON DIOXIDE LEVEL 33 MEQ/L (21-32); CHLORIDE LEVEL 84 MEQ/L (98-107); GLOMERULAR FILTRATION RATE > 60.0 (>45); GLUCOSE, FASTING 91 MG/DL (70-100); POTASSIUM SERUM 4.6 MEQ/L (3.5-5.1); SODIUM LEVEL 125 MEQ/L (136-145)
[2022-02-08 08:58] LABS: ALBUMIN 2.7 GM/DL (3.2-5.2); ALT/SGPT 11 U/L (12-78); BILIRUBIN,DIRECT < 0.1 MG/DL (0.0-0.2); BILIRUBIN,TOTAL 0.2 MG/DL (0.2-1.0); TOTAL PROTEIN 7.2 GM/DL (6.4-8.2)
[2022-02-08] MEDS: DOCUSATE SODIUM 100MG CAPSULE PO SCH ×2 (09:05→21:39)
[2022-02-08] MEDS: PANTOPRAZOLE 40MG VIAL IV SCH (09:06)
[2022-02-08] MEDS: ACETAMINOPHEN TAB 650MG DOSE (2X325MG) PO PRN ×2 (10:23→23:52)
[2022-02-08] MEDS ORDERED: NS 1,000 ML IV SCH (11:25)
[2022-02-08 15:01] LABS: BLOOD UREA NITROGEN 13 MG/DL (7-18); CALCIUM LEVEL 8.5 MG/DL (8.8-10.2); CARBON DIOXIDE LEVEL 32 MEQ/L (21-32); CHLORIDE LEVEL 83 MEQ/L (98-107); CREATININE FOR GFR 0.43 MG/DL (0.55-1.30); GLOMERULAR FILTRATION RATE > 60.0 (>45); GLUCOSE, FASTING 83 MG/DL (70-100); POTASSIUM SERUM 4.3 MEQ/L (3.5-5.1); SODIUM LEVEL 123 MEQ/L (136-145)
[2022-02-08] MEDS ORDERED: MIDAZOLAM INJ 2MG/2ML VIAL (J2250 PER 1MG) As Ordered ONE (15:56)
[2022-02-08] MEDS ORDERED: LIDOCAINE 1% MDV 20ML VIAL As Ordered ONE (15:56)
[2022-02-08] MEDS ORDERED: flumazeniL 0.5 MG/5 ML VIAL As Ordered ONE (15:57)
[2022-02-08] MEDS ORDERED: NS 1,000 ML IV ONE (16:45)
[2022-02-08 17:04] LABS: INR 1.05; PROTHROMBIN TIME 14.1 SECONDS (12.7-14.5)
[2022-02-08 17:05] LABS: PARTIAL THROMBOPLASTIN TIME 34.3 SECONDS (25.9-37.0)
[2022-02-08 20:05] LABS: BLOOD UREA NITROGEN 13 MG/DL (7-18); CALCIUM LEVEL 8.4 MG/DL (8.8-10.2); CARBON DIOXIDE LEVEL 31 MEQ/L (21-32); CHLORIDE LEVEL 89 MEQ/L (98-107); CREATININE FOR GFR 0.36 MG/DL (0.55-1.30); GLOMERULAR FILTRATION RATE > 60.0 (>45); GLUCOSE, FASTING 90 MG/DL (70-100); POTASSIUM SERUM 4.7 MEQ/L (3.5-5.1); SODIUM LEVEL 128 MEQ/L (136-145)
[2022-02-08] MEDS: COLCHICINE 0.6 MG TABLET PO SCH (21:39)
[2022-02-08 22:41] LABS: BLOOD UREA NITROGEN 14 MG/DL (7-18); CALCIUM LEVEL 8.2 MG/DL (8.8-10.2); CARBON DIOXIDE LEVEL 31 MEQ/L (21-32); CHLORIDE LEVEL 88 MEQ/L (98-107); CREATININE FOR GFR 0.38 MG/DL (0.55-1.30); GLOMERULAR FILTRATION RATE > 60.0 (>45); GLUCOSE, FASTING 88 MG/DL (70-100); POTASSIUM SERUM 4.7 MEQ/L (3.5-5.1); SODIUM LEVEL 126 MEQ/L (136-145)
[2022-02-09] VITALS (15 sets, daily range): BP systolic 90–171; BP diastolic 61–92
[2022-02-09] MEDS: IPRATROPIUM 0.5MG/ALBUTEROL 2.5MG INH SOL UD 3ML (DUONEB) NEB SCH ×4 (01:09→19:56)
[2022-02-09] MEDS: methylPREDNISolone 125MG 2ML VIAL IV SCH (05:04)
[2022-02-09] MEDS: HEPARIN SOD (PORCINE) 5000UNITS/ML 1ML VIAL/SYRINGE SC SCH ×3 (05:04→21:15)
[2022-02-09 05:19] LABS: HEMOGLOBIN 9.6 g/dl (12.0-15.5); MEAN CORPUSCULAR HEMOGLOBIN 27.4 pg (27.0-33.0); MEAN CORPUSCULAR VOLUME 88.3 fl (80.0-96.0); PLATELET COUNT, AUTOMATED 353 10^3/uL (150-450); RED BLOOD COUNT 3.51 10^6/uL (4.00-5.40); WHITE BLOOD COUNT 10.8 10^3/uL (4.0-10.0)
[2022-02-09 05:30] LABS: INR 1.04
[2022-02-09 05:37] LABS: BLOOD UREA NITROGEN 15 MG/DL (7-18); CALCIUM LEVEL 8.6 MG/DL (8.8-10.2); CARBON DIOXIDE LEVEL 31 MEQ/L (21-32); CHLORIDE LEVEL 90 MEQ/L (98-107); CREATININE FOR GFR 0.41 MG/DL (0.55-1.30); GLOMERULAR FILTRATION RATE > 60.0 (>45); GLUCOSE, FASTING 93 MG/DL (70-100); POTASSIUM SERUM 4.5 MEQ/L (3.5-5.1); SODIUM LEVEL 127 MEQ/L (136-145)
[2022-02-09] MEDS: SYMBICORT 80/4.5MCG INHALER 6GM INH SCH ×2 (07:18→19:54)
[2022-02-09] MEDS ORDERED: NS 1,000 ML IV SCH (07:20)
[2022-02-09] MEDS: PANTOPRAZOLE 40MG VIAL IV SCH (08:04)
[2022-02-09] MEDS: DOCUSATE SODIUM 100MG CAPSULE PO SCH ×2 (08:04→21:13)
[2022-02-09] MEDS: COLCHICINE 0.6 MG TABLET PO SCH ×2 (08:05→21:14)
[2022-02-09] MEDS: predniSONE 20 MG TAB PO SCH (12:28)
[2022-02-09] MEDS ORDERED: LEVALBUTEROL 1.25 MG/0.5 ML CONCENTRATE NEB NEB PRN (13:20)
[2022-02-09] MEDS ORDERED: LEVALBUTEROL 1.25 MG/0.5 ML CONCENTRATE NEB NEB SCH (14:00)
[2022-02-09 14:15] LABS: ABG BASE EXCESS 3.6 (-2.0-2.0); ABG HCO3 31.1 MEQ/L (22.0-26.0); ABG O2 SATURATION 95.3 % (95.0-99.0); ABG PARTIAL PRESSURE O2 80.6 mmHg (75.0-100.0); ABG STANDARD HCO3 27.7 MEQ/L (22.0-26.0)
[2022-02-09 14:19] LABS: ABG PARTIAL PRESSURE CO2 63.2 mmHg (35.0-45.0)
[2022-02-09 15:48] LABS: BLOOD UREA NITROGEN 15 MG/DL (7-18); CALCIUM LEVEL 8.8 MG/DL (8.8-10.2); CARBON DIOXIDE LEVEL 34 MEQ/L (21-32); CHLORIDE LEVEL 90 MEQ/L (98-107); GLOMERULAR FILTRATION RATE > 60.0 (>45); GLUCOSE, FASTING 133 MG/DL (70-100); POTASSIUM SERUM 4.9 MEQ/L (3.5-5.1); SODIUM LEVEL 127 MEQ/L (136-145)
[2022-02-09 20:45] LABS: BLOOD UREA NITROGEN 14 MG/DL (7-18); CALCIUM LEVEL 8.2 MG/DL (8.8-10.2); CARBON DIOXIDE LEVEL 34 MEQ/L (21-32); CHLORIDE LEVEL 89 MEQ/L (98-107); CREATININE FOR GFR 0.44 MG/DL (0.55-1.30); GLOMERULAR FILTRATION RATE > 60.0 (>45); GLUCOSE, FASTING 146 MG/DL (70-100); POTASSIUM SERUM 4.8 MEQ/L (3.5-5.1); SODIUM LEVEL 125 MEQ/L (136-145)
[2022-02-09] MEDS: AZITHROMYCIN INJ 500 MG, VIAL MATE ADAPTER 1 EACH in NS 250 ML IV SCH (23:28)
[2022-02-10] VITALS (14 sets, daily range): BP systolic 82–133; BP diastolic 57–87
[2022-02-10] MEDS: ACETAMINOPHEN TAB 650MG DOSE (2X325MG) PO PRN ×3 (00:31→20:40)
[2022-02-10 01:57] LABS: BLOOD UREA NITROGEN 14 MG/DL (7-18); CALCIUM LEVEL 8.7 MG/DL (8.8-10.2); CARBON DIOXIDE LEVEL 34 MEQ/L (21-32); CHLORIDE LEVEL 91 MEQ/L (98-107); CREATININE FOR GFR 0.42 MG/DL (0.55-1.30); GLOMERULAR FILTRATION RATE > 60.0 (>45); GLUCOSE, FASTING 135 MG/DL (70-100); POTASSIUM SERUM 4.2 MEQ/L (3.5-5.1); SODIUM LEVEL 129 MEQ/L (136-145)
[2022-02-10] MEDS: IPRATROPIUM 0.5MG/ALBUTEROL 2.5MG INH SOL UD 3ML (DUONEB) NEB SCH ×4 (02:14→19:37)
[2022-02-10 05:08] LABS: HEMATOCRIT 31.2 % (36.0-47.0); HEMOGLOBIN 9.9 g/dl (12.0-15.5); MEAN CORPUSCULAR HEMOGLOBIN 27.7 pg (27.0-33.0); MEAN CORPUSCULAR HGB CONC 31.7 g/dl (32.0-36.5); MEAN CORPUSCULAR VOLUME 87.2 fl (80.0-96.0); PLATELET COUNT, AUTOMATED 376 10^3/uL (150-450); RED BLOOD COUNT 3.58 10^6/uL (4.00-5.40); WHITE BLOOD COUNT 14.7 10^3/uL (4.0-10.0)
[2022-02-10 05:25] LABS: BLOOD UREA NITROGEN 15 MG/DL (7-18); CALCIUM LEVEL 8.5 MG/DL (8.8-10.2); CARBON DIOXIDE LEVEL 34 MEQ/L (21-32); CHLORIDE LEVEL 92 MEQ/L (98-107); GLOMERULAR FILTRATION RATE > 60.0 (>45); GLUCOSE, FASTING 113 MG/DL (70-100); POTASSIUM SERUM 4.2 MEQ/L (3.5-5.1); SODIUM LEVEL 128 MEQ/L (136-145)
[2022-02-10] MEDS: HEPARIN SOD (PORCINE) 5000UNITS/ML 1ML VIAL/SYRINGE SC SCH ×3 (05:40→20:40)
[2022-02-10 05:45] LABS: ABG HCO3 34.4 MEQ/L (22.0-26.0); ABG O2 SATURATION 99.4 % (95.0-99.0); ABG PARTIAL PRESSURE O2 163.7 mmHg (75.0-100.0); ABG STANDARD HCO3 30.9 MEQ/L (22.0-26.0); ABG TOTAL CO2 36.4 MEQ/L (23.0-31.0)
[2022-02-10 05:48] LABS: ABG PARTIAL PRESSURE CO2 65.2 mmHg (35.0-45.0)
[2022-02-10] MEDS: SYMBICORT 80/4.5MCG INHALER 6GM INH SCH ×2 (07:38→19:37)
[2022-02-10] MEDS ORDERED: PNEUMOCOCCAL VACCINE 0.5ML SYRINGE (PNEUMOVAX 23) IM SCH (09:00)
[2022-02-10] MEDS: PANTOPRAZOLE 40MG VIAL IV SCH (10:46)
[2022-02-10] MEDS: predniSONE 20 MG TAB PO SCH (10:46)
[2022-02-10] MEDS: COLCHICINE 0.6 MG TABLET PO SCH ×2 (10:46→20:41)
[2022-02-10] MEDS: DOCUSATE SODIUM 100MG CAPSULE PO SCH ×2 (10:46→20:40)
[2022-02-10] MEDS ORDERED: NS 250 ML IV STA (13:02)
[2022-02-10] MEDS: AZITHROMYCIN INJ 500 MG, VIAL MATE ADAPTER 1 EACH in NS 250 ML IV SCH (23:47)
[2022-02-11] VITALS (25 sets, daily range): BP systolic 106–136; BP diastolic 55–75
[2022-02-11] MEDS: IPRATROPIUM 0.5MG/ALBUTEROL 2.5MG INH SOL UD 3ML (DUONEB) NEB SCH ×5 (01:23→20:00)
[2022-02-11 04:39] LABS: HEMATOCRIT 31.4 % (36.0-47.0); HEMOGLOBIN 9.6 g/dl (12.0-15.5); MEAN CORPUSCULAR HEMOGLOBIN 27.1 pg (27.0-33.0); MEAN CORPUSCULAR HGB CONC 30.6 g/dl (32.0-36.5); MEAN CORPUSCULAR VOLUME 88.7 fl (80.0-96.0); PLATELET COUNT, AUTOMATED 364 10^3/uL (150-450); RED BLOOD COUNT 3.54 10^6/uL (4.00-5.40); WHITE BLOOD COUNT 14.6 10^3/uL (4.0-10.0)
[2022-02-11 05:02] LABS: BLOOD UREA NITROGEN 10 MG/DL (7-18); CALCIUM LEVEL 7.7 MG/DL (8.8-10.2); CARBON DIOXIDE LEVEL 41 MEQ/L (21-32); CHLORIDE LEVEL 91 MEQ/L (98-107); CREATININE FOR GFR 0.33 MG/DL (0.55-1.30); GLOMERULAR FILTRATION RATE > 60.0 (>45); GLUCOSE, FASTING 111 MG/DL (70-100); POTASSIUM SERUM 3.8 MEQ/L (3.5-5.1); SODIUM LEVEL 131 MEQ/L (136-145)
[2022-02-11] MEDS: HEPARIN SOD (PORCINE) 5000UNITS/ML 1ML VIAL/SYRINGE SC SCH ×3 (06:03→21:20)
[2022-02-11] MEDS: ACETAMINOPHEN TAB 650MG DOSE (2X325MG) PO PRN ×2 (06:30→13:16)
[2022-02-11] MEDS: SYMBICORT 80/4.5MCG INHALER 6GM INH SCH ×2 (07:12→20:40)
[2022-02-11] MEDS ORDERED: BISACODYL 5 MG TAB PO PRN (07:50)
[2022-02-11 08:10] LABS: ABG BASE EXCESS 12.8 (-2.0-2.0); ABG HCO3 40.2 MEQ/L (22.0-26.0); ABG O2 SATURATION 94.4 % (95.0-99.0); ABG PARTIAL PRESSURE O2 71.1 mmHg (75.0-100.0); ABG STANDARD HCO3 36.5 MEQ/L (22.0-26.0); ABG TOTAL CO2 42.3 MEQ/L (23.0-31.0); ABG pH (ARTERIAL) 7.384 UNITS (7.350-7.450)
[2022-02-11 08:12] LABS: ABG PARTIAL PRESSURE CO2 68.9 mmHg (35.0-45.0)
[2022-02-11] MEDS: DOCUSATE SODIUM 100MG CAPSULE PO SCH (09:00)
[2022-02-11 09:44] LABS: FERRITIN 22 NG/ML (8-252); IRON (FE) 41 UG/DL (50-170); MAGNESIUM LEVEL 1.9 MG/DL (1.8-2.4); PERCENT SATURATION 16.5 % (13.2-45.0); PHOSPHORUS LEVEL 1.9 MG/DL (2.5-4.9); TOTAL IRON BINDING CAPACITY 249 UG/DL (250-450)
[2022-02-11] MEDS: COLCHICINE 0.6 MG TABLET PO SCH ×2 (10:45→20:03)
[2022-02-11] MEDS: predniSONE 20 MG TAB PO SCH (10:45)
[2022-02-11] MEDS: PANTOPRAZOLE 40MG VIAL IV SCH (10:45)
[2022-02-11] MEDS: NS 1,000 ML IV SCH ×2 (10:47→20:03)
[2022-02-11] MEDS: CALCIUM/VITAMIN D 500 MG TAB PO SCH ×3 (10:47→20:03)
[2022-02-11] MEDS: MULTIVITAMINS/MINERALS THERAP 1 TAB PO SCH (10:48)
[2022-02-11 11:33] LABS: FOLATE 10.1 NG/ML (>5.4); TOTAL 25(OH) VITAMIN D 36.6 NG/ML (30.0-100.0)
[2022-02-11 15:08] LABS: ANTI DS-DNA AB Positive (Negative)
[2022-02-11] MEDS: LACTOBACILLUS ACIDOPHILUS CAP (BACID) PO SCH (19:00)
[2022-02-11] MEDS ORDERED: SODIUM PHOSPHATE INJ 20 MMOL in D5W 250 ML IV ONE (20:00)
[2022-02-12] VITALS (14 sets, daily range): BP systolic 109–130; BP diastolic 54–67
[2022-02-12] MEDS: AZITHROMYCIN INJ 500 MG, VIAL MATE ADAPTER 1 EACH in NS 250 ML IV SCH ×3
[2022-02-12] MEDS: IPRATROPIUM 0.5MG/ALBUTEROL 2.5MG INH SOL UD 3ML (DUONEB) NEB SCH ×4 (01:17→19:33)
[2022-02-12] MEDS: ACETAMINOPHEN TAB 650MG DOSE (2X325MG) PO PRN ×3 (02:33→20:20)
[2022-02-12 05:53] LABS: HEMATOCRIT 31.3 % (36.0-47.0); HEMOGLOBIN 9.5 g/dl (12.0-15.5); MEAN CORPUSCULAR HEMOGLOBIN 27.7 pg (27.0-33.0); MEAN CORPUSCULAR HGB CONC 30.4 g/dl (32.0-36.5); MEAN CORPUSCULAR VOLUME 91.3 fl (80.0-96.0); PLATELET COUNT, AUTOMATED 345 10^3/uL (150-450); RED BLOOD COUNT 3.43 10^6/uL (4.00-5.40); WHITE BLOOD COUNT 14.5 10^3/uL (4.0-10.0)
[2022-02-12] MEDS: HEPARIN SOD (PORCINE) 5000UNITS/ML 1ML VIAL/SYRINGE SC SCH ×2 (06:07→13:43)
[2022-02-12 06:12] LABS: BLOOD UREA NITROGEN 8 MG/DL (7-18); CALCIUM LEVEL 8.5 MG/DL (8.8-10.2); CARBON DIOXIDE LEVEL 44 MEQ/L (21-32); CHLORIDE LEVEL 92 MEQ/L (98-107); CREATININE FOR GFR 0.28 MG/DL (0.55-1.30); GLOMERULAR FILTRATION RATE > 60.0 (>45); GLUCOSE, FASTING 92 MG/DL (70-100); POTASSIUM SERUM 3.5 MEQ/L (3.5-5.1); SODIUM LEVEL 137 MEQ/L (136-145)
[2022-02-12] MEDS: SYMBICORT 80/4.5MCG INHALER 6GM INH SCH ×2 (07:32→19:33)
[2022-02-12] MEDS: LACTOBACILLUS ACIDOPHILUS CAP (BACID) PO SCH ×2 (08:51→18:08)
[2022-02-12] MEDS: COLCHICINE 0.6 MG TABLET PO SCH ×2 (08:51→20:20)
[2022-02-12] MEDS: CALCIUM/VITAMIN D 500 MG TAB PO SCH ×3 (08:51→20:20)
[2022-02-12] MEDS: MULTIVITAMINS/MINERALS THERAP 1 TAB PO SCH (08:51)
[2022-02-12] MEDS: PANTOPRAZOLE 40MG VIAL IV SCH (08:52)
[2022-02-12] MEDS: predniSONE 10 MG TAB PO SCH (08:55)
[2022-02-12] MEDS: SODIUM CHLORIDE NASAL 0.65% SPRAY BTL (OCEAN) PRN (09:45)
[2022-02-12 11:42] LABS: MAGNESIUM LEVEL 1.8 MG/DL (1.8-2.4); PHOSPHORUS LEVEL 3.3 MG/DL (2.5-4.9)
[2022-02-12] MEDS ORDERED: ALPRAZolam 0.25 MG TAB PO ONE ×2 (11:45→23:00)
[2022-02-12] MEDS ORDERED: HEPARIN SOD (PORCINE) 5000UNITS/ML 1ML VIAL/SYRINGE IV PRN (15:15)
[2022-02-12] MEDS ORDERED: METOPROLOL 5 MG/5 ML VIAL IV STA (15:15)
[2022-02-12] MEDS ORDERED: HEPARIN DRIP 25,000 UNITS in IV 1 EA IV SCH (15:15)
[2022-02-12] MEDS ORDERED: METOPROLOL TART 12.5 MG PER 1/2 TAB PO SCH (15:15)
[2022-02-12] MEDS ORDERED: METOPROLOL 5 MG/5 ML VIAL As Ordered ONE (15:20)
[2022-02-12] MEDS ORDERED: LORazepam 2 MG/ML VIAL IV STA (15:29)
[2022-02-12 16:19] LABS: HEMATOCRIT 34.2 % (36.0-47.0); HEMOGLOBIN 10.3 g/dl (12.0-15.5); MEAN CORPUSCULAR HEMOGLOBIN 26.6 pg (27.0-33.0); MEAN CORPUSCULAR HGB CONC 30.1 g/dl (32.0-36.5); MEAN CORPUSCULAR VOLUME 88.4 fl (80.0-96.0); PLATELET COUNT, AUTOMATED 384 10^3/uL (150-450); RED BLOOD COUNT 3.87 10^6/uL (4.00-5.40); WHITE BLOOD COUNT 15.4 10^3/uL (4.0-10.0)
[2022-02-12 16:33] LABS: CK-MB VALUE MASS 2.2 NG/ML (<3.6); MB/CK RELATIVE INDEX 3.49 (< OR =4)
[2022-02-12 16:50] LABS: LYMPHOCYTES 8 % (16-44); METAMYELOCYTES 1 % (0-0); MONOCYTES 8 % (0-5); MYELOCYTES 3 % (0-0); NEUTROPHILS 78 % (28-66); PLATELET ESTIMATE NORMAL (NORMAL); PROMYELOCYTES 1 % (0-0)
[2022-02-12] MEDS ORDERED: NS 500 ML IV ONE ×2 (17:20→17:26)
[2022-02-12 17:31] LABS: ALBUMIN 2.8 GM/DL (3.2-5.2); ALT/SGPT 17 U/L (12-78); BILIRUBIN,TOTAL 0.2 MG/DL (0.2-1.0); BLOOD UREA NITROGEN 8 MG/DL (7-18); CALCIUM LEVEL 8.4 MG/DL (8.8-10.2); CARBON DIOXIDE LEVEL 43 MEQ/L (21-32); CHLORIDE LEVEL 87 MEQ/L (98-107); CREATININE FOR GFR 0.33 MG/DL (0.55-1.30); GLOMERULAR FILTRATION RATE > 60.0 (>45); GLUCOSE, FASTING 133 MG/DL (70-100); MAGNESIUM LEVEL 1.8 MG/DL (1.8-2.4); NT-PRO BNP 3150 PG/ML (<125); POTASSIUM SERUM 3.7 MEQ/L (3.5-5.1); SODIUM LEVEL 132 MEQ/L (136-145); TOTAL PROTEIN 6.1 GM/DL (6.4-8.2)
[2022-02-12] MEDS ORDERED: POTASSIUM CHLORIDE 10MEQ SR TABLET PO ONE (17:45)
[2022-02-12] MEDS ORDERED: KCL 10MEQ/100ML SWI (KRUN) 10 MEQ in IV 1 EA IV ONE (18:00)
[2022-02-12] MEDS ORDERED: MAG SULF 1GM/100ML (MAG RUN) 1 GM in IV 1 EA IV ONE (18:00)
[2022-02-12] MEDS: NS 1,000 ML IV SCH (18:09)
[2022-02-12] MEDS: HEPARIN SOD (PORCINE) 5000UNITS/ML 1ML VIAL/SYRINGE SQ SCH (21:34)
[2022-02-12 21:35] LABS: MB/CK RELATIVE INDEX 3.23 (< OR =4)
[2022-02-13] VITALS (13 sets, daily range): BP systolic 107–143; BP diastolic 53–77
[2022-02-13] MEDS: NS 1,000 ML IV SCH ×2 (00:04→13:27)
[2022-02-13] MEDS: IPRATROPIUM 0.5MG/ALBUTEROL 2.5MG INH SOL UD 3ML (DUONEB) NEB SCH ×4 (01:12→20:00)
[2022-02-13 04:57] LABS: HEMATOCRIT 33.3 % (36.0-47.0); HEMOGLOBIN 9.9 g/dl (12.0-15.5); MEAN CORPUSCULAR HEMOGLOBIN 27.2 pg (27.0-33.0); MEAN CORPUSCULAR HGB CONC 29.7 g/dl (32.0-36.5); MEAN CORPUSCULAR VOLUME 91.5 fl (80.0-96.0); PLATELET COUNT, AUTOMATED 367 10^3/uL (150-450); RED BLOOD COUNT 3.64 10^6/uL (4.00-5.40)
[2022-02-13 05:27] LABS: BLOOD UREA NITROGEN 8 MG/DL (7-18); CALCIUM LEVEL 8.6 MG/DL (8.8-10.2); CARBON DIOXIDE LEVEL 45 MEQ/L (21-32); CHLORIDE LEVEL 92 MEQ/L (98-107); CREATININE FOR GFR 0.38 MG/DL (0.55-1.30); GLOMERULAR FILTRATION RATE > 60.0 (>45); GLUCOSE, FASTING 106 MG/DL (70-100); POTASSIUM SERUM 3.8 MEQ/L (3.5-5.1); SODIUM LEVEL 138 MEQ/L (136-145)
[2022-02-13] MEDS: HEPARIN SOD (PORCINE) 5000UNITS/ML 1ML VIAL/SYRINGE SQ SCH ×3 (06:14→22:21)
[2022-02-13] MEDS ORDERED: POTASSIUM CHLORIDE 10MEQ SR TABLET PO ONE (07:15)
[2022-02-13] MEDS: SYMBICORT 80/4.5MCG INHALER 6GM INH SCH ×2 (07:40→20:21)
[2022-02-13] MEDS: LACTOBACILLUS ACIDOPHILUS CAP (BACID) PO SCH ×2 (07:52→17:19)
[2022-02-13] MEDS: PANTOPRAZOLE 40MG VIAL IV SCH (08:42)
[2022-02-13] MEDS: MULTIVITAMINS/MINERALS THERAP 1 TAB PO SCH (08:44)
[2022-02-13] MEDS: predniSONE 10 MG TAB PO SCH (08:44)
[2022-02-13] MEDS: CALCIUM/VITAMIN D 500 MG TAB PO SCH ×3 (08:44→22:15)
[2022-02-13] MEDS: COLCHICINE 0.6 MG TABLET PO SCH ×2 (08:45→22:15)
[2022-02-13 09:49] LABS: MAGNESIUM LEVEL 1.9 MG/DL (1.8-2.4); NT-PRO BNP 2529 PG/ML (<125); PHOSPHORUS LEVEL 2.7 MG/DL (2.5-4.9)
[2022-02-13 09:59] LABS: BASO # 0.1 10^3/uL (0.0-0.2); BASO % 0.5 % (0.0-1.0); EOS # 0.1 10^3/uL (0.0-0.5); EOS % 0.4 % (0.0-3.0); LYMPH # 3.3 10^3/uL (1.5-5.0); LYMPH % 20.8 % (24.0-44.0); MONO # 1.3 10^3/uL (0.0-0.8); MONO % 7.9 % (2.0-8.0); NEUTROPHILS # 9.9 10^3/uL (1.5-8.5); NEUTROPHILS % 62.1 % (36.0-66.0)
[2022-02-13] MEDS ORDERED: NS 500 ML IV ONE ×2 (10:15→14:30)
[2022-02-13] MEDS: ALPRAZolam 0.25 MG TAB PO PRN ×3 (12:50→23:41)
[2022-02-13 15:51] LABS: BLOOD UREA NITROGEN 6 MG/DL (7-18); CALCIUM LEVEL 8.1 MG/DL (8.8-10.2); CARBON DIOXIDE LEVEL 42 MEQ/L (21-32); CHLORIDE LEVEL 92 MEQ/L (98-107); CREATININE FOR GFR 0.39 MG/DL (0.55-1.30); GLOMERULAR FILTRATION RATE > 60.0 (>45); GLUCOSE, FASTING 130 MG/DL (70-100); MAGNESIUM LEVEL 1.9 MG/DL (1.8-2.4); NT-PRO BNP 2274 PG/ML (<125); PHOSPHORUS LEVEL 2.6 MG/DL (2.5-4.9); POTASSIUM SERUM 4.3 MEQ/L (3.5-5.1); SODIUM LEVEL 135 MEQ/L (136-145)
[2022-02-14] MEDS: IPRATROPIUM 0.5MG/ALBUTEROL 2.5MG INH SOL UD 3ML (DUONEB) NEB SCH ×4 (00:18→20:00)
[2022-02-14] MEDS: NS 1,000 ML IV SCH (02:56)
[2022-02-14 04:00] VITALS: BP 124/58
[2022-02-14 05:32] LABS: HEMATOCRIT 33.7 % (36.0-47.0); HEMOGLOBIN 10.1 g/dl (12.0-15.5); MEAN CORPUSCULAR HEMOGLOBIN 27.3 pg (27.0-33.0); MEAN CORPUSCULAR VOLUME 91.1 fl (80.0-96.0); PLATELET COUNT, AUTOMATED 351 10^3/uL (150-450); WHITE BLOOD COUNT 17.1 10^3/uL (4.0-10.0)
[2022-02-14] MEDS: HEPARIN SOD (PORCINE) 5000UNITS/ML 1ML VIAL/SYRINGE SQ SCH ×3 (05:49→21:03)
[2022-02-14 05:59] LABS: ALBUMIN 2.6 GM/DL (3.2-5.2); ALT/SGPT 24 U/L (12-78); BILIRUBIN,TOTAL 0.1 MG/DL (0.2-1.0); BLOOD UREA NITROGEN 6 MG/DL (7-18); CALCIUM LEVEL 8.9 MG/DL (8.8-10.2); CARBON DIOXIDE LEVEL 44 MEQ/L (21-32); CHLORIDE LEVEL 93 MEQ/L (98-107); CREATININE FOR GFR 0.32 MG/DL (0.55-1.30); GLOMERULAR FILTRATION RATE > 60.0 (>45); GLUCOSE, FASTING 97 MG/DL (70-100); MAGNESIUM LEVEL 1.9 MG/DL (1.8-2.4); PHOSPHORUS LEVEL 3.3 MG/DL (2.5-4.9); POTASSIUM SERUM 3.9 MEQ/L (3.5-5.1); SODIUM LEVEL 137 MEQ/L (136-145)
[2022-02-14 06:25] LABS: ATYPICAL LYMPH 4 % (0-5); EOSINOPHILS 2 % (0-3); LYMPHOCYTES 19 % (16-44); METAMYELOCYTES 2 % (0-0); MONOCYTES 5 % (0-5); MYELOCYTES 2 % (0-0); NEUTROPHILS 64 % (28-66)
[2022-02-14 06:27] LABS: PLATELET ESTIMATE NORMAL (NORMAL)
[2022-02-14 06:28] LABS: POIKILOCYTOSIS 1+; SCHISTOCYTES 1+; STOMATOCYTES 1+
[2022-02-14] MEDS: SYMBICORT 80/4.5MCG INHALER 6GM INH SCH ×2 (07:24→20:00)
[2022-02-14 07:40] VITALS: BP 121/65
[2022-02-14] MEDS: LACTOBACILLUS ACIDOPHILUS CAP (BACID) PO SCH ×2 (08:08→17:42)
[2022-02-14] MEDS: MULTIVITAMINS/MINERALS THERAP 1 TAB PO SCH (08:08)
[2022-02-14] MEDS: ALPRAZolam 0.25 MG TAB PO PRN ×2 (08:08→17:45)
[2022-02-14] MEDS: predniSONE 10 MG TAB PO SCH (08:08)
[2022-02-14] MEDS: COLCHICINE 0.6 MG TABLET PO SCH ×2 (08:09→20:07)
[2022-02-14] MEDS: CALCIUM/VITAMIN D 500 MG TAB PO SCH ×3 (08:09→20:07)
[2022-02-14] MEDS: PANTOPRAZOLE 40MG VIAL IV SCH (08:09)
[2022-02-14] MEDS ORDERED: ISOVUE-370 76% 100ML VIAL As Ordered ONE (09:14)
[2022-02-14 09:30] LABS: C REACTIVE PROTEIN QUANTITATIV 0.52 MG/DL (0.00-0.30)
[2022-02-14 11:15] VITALS: BP 134/62
[2022-02-14 16:00] VITALS: BP 124/61
[2022-02-14 20:07] VITALS: BP 117/67
[2022-02-14] MEDS: ACETAMINOPHEN TAB 650MG DOSE (2X325MG) PO PRN (20:07)
[2022-02-15] VITALS (12 sets, daily range): BP systolic 107–129; BP diastolic 56–61; O2SAT 95–98
[2022-02-15] MEDS: IPRATROPIUM 0.5MG/ALBUTEROL 2.5MG INH SOL UD 3ML (DUONEB) NEB SCH ×4 (02:54→20:00)
[2022-02-15] MEDS: HEPARIN SOD (PORCINE) 5000UNITS/ML 1ML VIAL/SYRINGE SQ SCH ×3 (05:04→21:30)
[2022-02-15 07:18] LABS: BASO % 0.2 % (0.0-1.0); EOS # 0.2 10^3/uL (0.0-0.5); HEMATOCRIT 33.8 % (36.0-47.0); LYMPH # 2.8 10^3/uL (1.5-5.0); LYMPH % 17.2 % (24.0-44.0); MEAN CORPUSCULAR HGB CONC 29.6 g/dl (32.0-36.5); MEAN CORPUSCULAR VOLUME 91.1 fl (80.0-96.0); MONO # 1.1 10^3/uL (0.0-0.8); MONO % 7.1 % (2.0-8.0); NEUTROPHILS # 11.3 10^3/uL (1.5-8.5); NEUTROPHILS % 70.5 % (36.0-66.0); PLATELET COUNT, AUTOMATED 373 10^3/uL (150-450); RED BLOOD COUNT 3.71 10^6/uL (4.00-5.40)
[2022-02-15] MEDS: SYMBICORT 80/4.5MCG INHALER 6GM INH SCH ×2 (08:00→20:21)
[2022-02-15 08:01] LABS: ALBUMIN 2.8 GM/DL (3.2-5.2); ALT/SGPT 34 U/L (12-78); BILIRUBIN,TOTAL 0.2 MG/DL (0.2-1.0); BLOOD UREA NITROGEN 8 MG/DL (7-18); C REACTIVE PROTEIN QUANTITATIV 0.41 MG/DL (0.00-0.30); CARBON DIOXIDE LEVEL 50 MEQ/L (21-32); CHLORIDE LEVEL 90 MEQ/L (98-107); CREATININE FOR GFR 0.39 MG/DL (0.55-1.30); GLOMERULAR FILTRATION RATE > 60.0 (>45); GLUCOSE, FASTING 102 MG/DL (70-100); PHOSPHORUS LEVEL 4.8 MG/DL (2.5-4.9); POTASSIUM SERUM 4.3 MEQ/L (3.5-5.1); SODIUM LEVEL 136 MEQ/L (136-145); TOTAL PROTEIN 6.1 GM/DL (6.4-8.2)
[2022-02-15] MEDS: CALCIUM/VITAMIN D 500 MG TAB PO SCH ×3 (08:11→21:30)
[2022-02-15] MEDS: PANTOPRAZOLE 40MG VIAL IV SCH (08:12)
[2022-02-15] MEDS: LACTOBACILLUS ACIDOPHILUS CAP (BACID) PO SCH ×2 (08:12→18:33)
[2022-02-15] MEDS: MULTIVITAMINS/MINERALS THERAP 1 TAB PO SCH (08:12)
[2022-02-15] MEDS: predniSONE 10 MG TAB PO SCH (08:12)
[2022-02-15] MEDS: ALPRAZolam 0.25 MG TAB PO PRN ×2 (08:25→16:31)
[2022-02-15] MEDS: COLCHICINE 0.6 MG TABLET PO SCH ×2 (08:25→21:30)
[2022-02-15] MEDS: ACETAMINOPHEN TAB 650MG DOSE (2X325MG) PO PRN ×2 (08:25→18:37)
[2022-02-15 21:02] LABS: BLOOD UREA NITROGEN 10 MG/DL (7-18); CALCIUM LEVEL 9.1 MG/DL (8.8-10.2); CHLORIDE LEVEL 88 MEQ/L (98-107); CREATININE FOR GFR 0.39 MG/DL (0.55-1.30); GLOMERULAR FILTRATION RATE > 60.0 (>45); GLUCOSE, FASTING 116 MG/DL (70-100); POTASSIUM SERUM 4.1 MEQ/L (3.5-5.1); SODIUM LEVEL 135 MEQ/L (136-145)
[2022-02-15 21:14] LABS: CARBON DIOXIDE LEVEL 53 MEQ/L (21-32)
[2022-02-16] VITALS (28 sets, daily range): BP systolic 103–119; BP diastolic 56–81; O2SAT 91–100
[2022-02-16] MEDS: IPRATROPIUM 0.5MG/ALBUTEROL 2.5MG INH SOL UD 3ML (DUONEB) NEB SCH ×4 (00:56→21:55)
[2022-02-16] MEDS: ALPRAZolam 0.25 MG TAB PO PRN ×2 (04:29→18:33)
[2022-02-16] MEDS: ACETAMINOPHEN TAB 650MG DOSE (2X325MG) PO PRN (04:29)
[2022-02-16] MEDS: HEPARIN SOD (PORCINE) 5000UNITS/ML 1ML VIAL/SYRINGE SQ SCH ×3 (06:34→21:12)
[2022-02-16 06:56] LABS: BASO % 0.2 % (0.0-1.0); EOS # 0.1 10^3/uL (0.0-0.5); HEMATOCRIT 34.2 % (36.0-47.0); LYMPH # 2.6 10^3/uL (1.5-5.0); LYMPH % 19.3 % (24.0-44.0); MEAN CORPUSCULAR HEMOGLOBIN 26.4 pg (27.0-33.0); MEAN CORPUSCULAR HGB CONC 29.2 g/dl (32.0-36.5); MEAN CORPUSCULAR VOLUME 90.2 fl (80.0-96.0); MONO # 1.2 10^3/uL (0.0-0.8); MONO % 8.4 % (2.0-8.0); NEUTROPHILS # 9.5 10^3/uL (1.5-8.5); NEUTROPHILS % 68.9 % (36.0-66.0); PLATELET COUNT, AUTOMATED 369 10^3/uL (150-450); RED BLOOD COUNT 3.79 10^6/uL (4.00-5.40); WHITE BLOOD COUNT 13.7 10^3/uL (4.0-10.0)
[2022-02-16] MEDS: SYMBICORT 80/4.5MCG INHALER 6GM INH SCH ×2 (07:32→21:55)
[2022-02-16 07:46] LABS: ALBUMIN 2.7 GM/DL (3.2-5.2); ALT/SGPT 36 U/L (12-78); BILIRUBIN,TOTAL 0.2 MG/DL (0.2-1.0); BLOOD UREA NITROGEN 10 MG/DL (7-18); C REACTIVE PROTEIN QUANTITATIV 0.32 MG/DL (0.00-0.30); CALCIUM LEVEL 8.9 MG/DL (8.8-10.2); CARBON DIOXIDE LEVEL 50 MEQ/L (21-32); CHLORIDE LEVEL 90 MEQ/L (98-107); CREATININE FOR GFR 0.43 MG/DL (0.55-1.30); GLOMERULAR FILTRATION RATE > 60.0 (>45); GLUCOSE, FASTING 92 MG/DL (70-100); MAGNESIUM LEVEL 2.2 MG/DL (1.8-2.4); PHOSPHORUS LEVEL 4.7 MG/DL (2.5-4.9); SODIUM LEVEL 135 MEQ/L (136-145); TOTAL PROTEIN 6.1 GM/DL (6.4-8.2)
[2022-02-16] MEDS: PANTOPRAZOLE 40MG VIAL IV SCH (09:39)
[2022-02-16] MEDS: CALCIUM/VITAMIN D 500 MG TAB PO SCH ×3 (09:40→21:12)
[2022-02-16] MEDS: predniSONE 10 MG TAB PO SCH (09:40)
[2022-02-16] MEDS: MULTIVITAMINS/MINERALS THERAP 1 TAB PO SCH (09:40)
[2022-02-16] MEDS: LACTOBACILLUS ACIDOPHILUS CAP (BACID) PO SCH ×2 (09:40→18:33)
[2022-02-16] MEDS: COLCHICINE 0.6 MG TABLET PO SCH (09:40)
[2022-02-16 17:10] LABS: BETA-2 GLYCOPROTEIN I ABY IGA >150 (0-25); BETA-2 GLYCOPROTEIN I ABY IGG >150 (0-20); BETA-2 GLYCOPROTEIN I ABY IGM <9 (0-32); CARDIOLIPIN IGA ANTIBODY <9 APL U/mL (0-11); CARDIOLIPIN IGG ANTIBODY 27 GPL U/mL (0-14); CARDIOLIPIN IGM ANTIBODY <9 MPL U/mL (0-12); RNP ANTIBODY < 0.2 AI (0.0-0.9); SMITHS ANTIBODY < 0.2 AI (0.0-0.9)
[2022-02-16] MEDS: LOPERAMIDE 2 MG CAPLET PO PRN (18:33)
[2022-02-16 19:43] LABS: CLOSTRIDIUM DIFFICILE PCR NEGATIVE (NEGATIVE)
[2022-02-17] VITALS (26 sets, daily range): BP systolic 101–128; BP diastolic 53–59; O2SAT 83–98
[2022-02-17] MEDS: ALPRAZolam 0.25 MG TAB PO PRN ×2 (00:43→23:31)
[2022-02-17] MEDS: ACETAMINOPHEN TAB 650MG DOSE (2X325MG) PO PRN ×2 (00:43→23:33)
[2022-02-17] MEDS: IPRATROPIUM 0.5MG/ALBUTEROL 2.5MG INH SOL UD 3ML (DUONEB) NEB SCH ×4 (01:58→19:57)
[2022-02-17 06:01] LABS: BASO % 0.1 % (0.0-1.0); EOS # 0.1 10^3/uL (0.0-0.5); EOS % 0.9 % (0.0-3.0); HEMATOCRIT 33.4 % (36.0-47.0); LYMPH # 2.3 10^3/uL (1.5-5.0); LYMPH % 21.5 % (24.0-44.0); MEAN CORPUSCULAR HEMOGLOBIN 27.2 pg (27.0-33.0); MEAN CORPUSCULAR HGB CONC 29.9 g/dl (32.0-36.5); MEAN CORPUSCULAR VOLUME 90.8 fl (80.0-96.0); MONO # 1.1 10^3/uL (0.0-0.8); MONO % 9.7 % (2.0-8.0); NEUTROPHILS # 7.2 10^3/uL (1.5-8.5); NEUTROPHILS % 66.6 % (36.0-66.0); PLATELET COUNT, AUTOMATED 359 10^3/uL (150-450); RED BLOOD COUNT 3.68 10^6/uL (4.00-5.40); WHITE BLOOD COUNT 10.9 10^3/uL (4.0-10.0)
[2022-02-17] MEDS: HEPARIN SOD (PORCINE) 5000UNITS/ML 1ML VIAL/SYRINGE SQ SCH ×3 (06:09→21:17)
[2022-02-17] MEDS: LOPERAMIDE 2 MG CAPLET PO PRN (06:35)
[2022-02-17 06:40] LABS: ALBUMIN 2.8 GM/DL (3.2-5.2); ALT/SGPT 45 U/L (12-78); BILIRUBIN,TOTAL 0.2 MG/DL (0.2-1.0); BLOOD UREA NITROGEN 14 MG/DL (7-18); CALCIUM LEVEL 8.7 MG/DL (8.8-10.2); CARBON DIOXIDE LEVEL 42 MEQ/L (21-32); CHLORIDE LEVEL 91 MEQ/L (98-107); GLOMERULAR FILTRATION RATE > 60.0 (>45); GLUCOSE, FASTING 105 MG/DL (70-100); PHOSPHORUS LEVEL 4.2 MG/DL (2.5-4.9); POTASSIUM SERUM 4.3 MEQ/L (3.5-5.1); SODIUM LEVEL 133 MEQ/L (136-145); TOTAL PROTEIN 5.9 GM/DL (6.4-8.2)
[2022-02-17] MEDS: SYMBICORT 80/4.5MCG INHALER 6GM INH SCH ×2 (07:13→19:57)
[2022-02-17] MEDS: PANTOPRAZOLE 40MG VIAL IV SCH (08:48)
[2022-02-17] MEDS: LACTOBACILLUS ACIDOPHILUS CAP (BACID) PO SCH ×2 (08:48→17:51)
[2022-02-17] MEDS: MULTIVITAMINS/MINERALS THERAP 1 TAB PO SCH (08:48)
[2022-02-17] MEDS: predniSONE 10 MG TAB PO SCH (08:48)
[2022-02-17] MEDS: CALCIUM/VITAMIN D 500 MG TAB PO SCH ×3 (08:48→21:17)
[2022-02-17 09:15] LABS: DRVV SCREEN 32.3 SEC
[2022-02-17 09:26] LABS: PTT LUPUS TYPE ANTICOAG SCREEN 0.8 (0-1.2)
[2022-02-18] VITALS (11 sets, daily range): BP systolic 102–131; BP diastolic 53–63; O2SAT 89–97
[2022-02-18] MEDS: IPRATROPIUM 0.5MG/ALBUTEROL 2.5MG INH SOL UD 3ML (DUONEB) NEB SCH ×4 (02:06→20:00)
[2022-02-18 06:09] LABS: BASO % 0.2 % (0.0-1.0); EOS % 0.3 % (0.0-3.0); HEMATOCRIT 32.7 % (36.0-47.0); HEMOGLOBIN 10.1 g/dl (12.0-15.5); LYMPH # 2.5 10^3/uL (1.5-5.0); LYMPH % 20.3 % (24.0-44.0); MEAN CORPUSCULAR HEMOGLOBIN 27.5 pg (27.0-33.0); MEAN CORPUSCULAR HGB CONC 30.9 g/dl (32.0-36.5); MEAN CORPUSCULAR VOLUME 89.1 fl (80.0-96.0); MONO # 1.4 10^3/uL (0.0-0.8); MONO % 11.1 % (2.0-8.0); NEUTROPHILS # 8.2 10^3/uL (1.5-8.5); NEUTROPHILS % 67.3 % (36.0-66.0); PLATELET COUNT, AUTOMATED 338 10^3/uL (150-450); RED BLOOD COUNT 3.67 10^6/uL (4.00-5.40); WHITE BLOOD COUNT 12.2 10^3/uL (4.0-10.0)
[2022-02-18] MEDS: HEPARIN SOD (PORCINE) 5000UNITS/ML 1ML VIAL/SYRINGE SQ SCH ×3 (06:12→21:28)
[2022-02-18 06:34] LABS: ALBUMIN 2.7 GM/DL (3.2-5.2); ALT/SGPT 65 U/L (12-78); BILIRUBIN,TOTAL 0.3 MG/DL (0.2-1.0); BLOOD UREA NITROGEN 15 MG/DL (7-18); CALCIUM LEVEL 8.6 MG/DL (8.8-10.2); CARBON DIOXIDE LEVEL 41 MEQ/L (21-32); CHLORIDE LEVEL 92 MEQ/L (98-107); CREATININE FOR GFR 0.42 MG/DL (0.55-1.30); GLOMERULAR FILTRATION RATE > 60.0 (>45); GLUCOSE, FASTING 90 MG/DL (70-100); MAGNESIUM LEVEL 2.1 MG/DL (1.8-2.4); PHOSPHORUS LEVEL 3.8 MG/DL (2.5-4.9); POTASSIUM SERUM 3.9 MEQ/L (3.5-5.1); SODIUM LEVEL 134 MEQ/L (136-145); TOTAL PROTEIN 5.9 GM/DL (6.4-8.2)
[2022-02-18] MEDS: SYMBICORT 80/4.5MCG INHALER 6GM INH SCH ×2 (07:55→20:51)
[2022-02-18] MEDS: CALCIUM/VITAMIN D 500 MG TAB PO SCH ×3 (09:14→21:27)
[2022-02-18] MEDS: LACTOBACILLUS ACIDOPHILUS CAP (BACID) PO SCH ×2 (09:14→17:28)
[2022-02-18] MEDS: predniSONE 10 MG TAB PO SCH (09:14)
[2022-02-18] MEDS: ALPRAZolam 0.25 MG TAB PO PRN ×2 (09:14→23:24)
[2022-02-18] MEDS: MULTIVITAMINS/MINERALS THERAP 1 TAB PO SCH (09:14)
[2022-02-18] MEDS: PANTOPRAZOLE 40MG VIAL IV SCH (09:14)
[2022-02-18] MEDS: LOPERAMIDE 2 MG CAPLET PO PRN ×2 (13:27→21:36)
[2022-02-18] MEDS: ACETAMINOPHEN TAB 650MG DOSE (2X325MG) PO PRN (23:24)
[2022-02-18] MEDS: SODIUM CHLORIDE NASAL 0.65% SPRAY BTL (OCEAN) PRN (23:24)
[2022-02-19] VITALS (21 sets, daily range): BP systolic 94–116; BP diastolic 49–67; O2SAT 92–98
[2022-02-19] MEDS: IPRATROPIUM 0.5MG/ALBUTEROL 2.5MG INH SOL UD 3ML (DUONEB) NEB SCH ×4 (02:31→19:45)
[2022-02-19] MEDS: HEPARIN SOD (PORCINE) 5000UNITS/ML 1ML VIAL/SYRINGE SQ SCH ×3 (05:28→23:36)
[2022-02-19 05:58] LABS: BASO % 0.1 % (0.0-1.0); EOS % 0.1 % (0.0-3.0); HEMATOCRIT 32.2 % (36.0-47.0); HEMOGLOBIN 9.9 g/dl (12.0-15.5); LYMPH # 3.2 10^3/uL (1.5-5.0); LYMPH % 23.2 % (24.0-44.0); MEAN CORPUSCULAR HEMOGLOBIN 27.6 pg (27.0-33.0); MEAN CORPUSCULAR HGB CONC 30.7 g/dl (32.0-36.5); MEAN CORPUSCULAR VOLUME 89.7 fl (80.0-96.0); MONO # 1.2 10^3/uL (0.0-0.8); MONO % 8.6 % (2.0-8.0); NEUTROPHILS # 9.3 10^3/uL (1.5-8.5); NEUTROPHILS % 67.2 % (36.0-66.0); PLATELET COUNT, AUTOMATED 364 10^3/uL (150-450); RED BLOOD COUNT 3.59 10^6/uL (4.00-5.40); WHITE BLOOD COUNT 13.8 10^3/uL (4.0-10.0)
[2022-02-19 06:37] LABS: ALT/SGPT 71 U/L (12-78); BILIRUBIN,TOTAL 0.4 MG/DL (0.2-1.0); BLOOD UREA NITROGEN 14 MG/DL (7-18); CALCIUM LEVEL 8.6 MG/DL (8.8-10.2); CARBON DIOXIDE LEVEL 40 MEQ/L (21-32); CHLORIDE LEVEL 92 MEQ/L (98-107); CREATININE FOR GFR 0.46 MG/DL (0.55-1.30); GLOMERULAR FILTRATION RATE > 60.0 (>45); GLUCOSE, FASTING 84 MG/DL (70-100); MAGNESIUM LEVEL 2.3 MG/DL (1.8-2.4); PHOSPHORUS LEVEL 4.7 MG/DL (2.5-4.9); POTASSIUM SERUM 4.6 MEQ/L (3.5-5.1); SODIUM LEVEL 133 MEQ/L (136-145)
[2022-02-19] MEDS: MULTIVITAMINS/MINERALS THERAP 1 TAB PO SCH (08:15)
[2022-02-19] MEDS: LACTOBACILLUS ACIDOPHILUS CAP (BACID) PO SCH ×2 (08:15→18:02)
[2022-02-19] MEDS: PANTOPRAZOLE 40MG VIAL IV SCH (08:16)
[2022-02-19] MEDS: CALCIUM/VITAMIN D 500 MG TAB PO SCH ×3 (08:16→20:04)
[2022-02-19] MEDS: predniSONE 10 MG TAB PO SCH (08:16)
[2022-02-19] MEDS: SYMBICORT 80/4.5MCG INHALER 6GM INH SCH ×2 (08:30→19:45)
[2022-02-19] MEDS: ACETAMINOPHEN TAB 650MG DOSE (2X325MG) PO PRN (23:34)
[2022-02-19] MEDS: ALPRAZolam 0.25 MG TAB PO PRN (23:35)
[2022-02-20] VITALS (9 sets, daily range): BP systolic 107–117; BP diastolic 52–56; O2SAT 95–98
[2022-02-20] MEDS: IPRATROPIUM 0.5MG/ALBUTEROL 2.5MG INH SOL UD 3ML (DUONEB) NEB SCH ×4 (02:03→19:48)
[2022-02-20] MEDS: HEPARIN SOD (PORCINE) 5000UNITS/ML 1ML VIAL/SYRINGE SQ SCH ×3 (06:00→21:58)
[2022-02-20 07:10] LABS: BASO % 0.1 % (0.0-1.0); EOS # 0.1 10^3/uL (0.0-0.5); EOS % 0.4 % (0.0-3.0); HEMATOCRIT 30.1 % (36.0-47.0); HEMOGLOBIN 9.2 g/dl (12.0-15.5); LYMPH # 2.9 10^3/uL (1.5-5.0); LYMPH % 24.1 % (24.0-44.0); MEAN CORPUSCULAR HGB CONC 30.6 g/dl (32.0-36.5); MEAN CORPUSCULAR VOLUME 88.3 fl (80.0-96.0); MONO # 1.1 10^3/uL (0.0-0.8); MONO % 9.6 % (2.0-8.0); NEUTROPHILS # 7.7 10^3/uL (1.5-8.5); PLATELET COUNT, AUTOMATED 335 10^3/uL (150-450); RED BLOOD COUNT 3.41 10^6/uL (4.00-5.40); WHITE BLOOD COUNT 11.9 10^3/uL (4.0-10.0)
[2022-02-20] MEDS: SYMBICORT 80/4.5MCG INHALER 6GM INH SCH ×2 (07:33→19:49)
[2022-02-20 07:40] LABS: ALBUMIN 2.9 GM/DL (3.2-5.2); ALT/SGPT 58 U/L (12-78); BILIRUBIN,TOTAL 0.3 MG/DL (0.2-1.0); BLOOD UREA NITROGEN 10 MG/DL (7-18); CALCIUM LEVEL 9.3 MG/DL (8.8-10.2); CARBON DIOXIDE LEVEL 37 MEQ/L (21-32); CHLORIDE LEVEL 94 MEQ/L (98-107); CREATININE FOR GFR 0.45 MG/DL (0.55-1.30); GLOMERULAR FILTRATION RATE > 60.0 (>45); GLUCOSE, FASTING 95 MG/DL (70-100); MAGNESIUM LEVEL 2.4 MG/DL (1.8-2.4); PHOSPHORUS LEVEL 5.5 MG/DL (2.5-4.9); POTASSIUM SERUM 4.7 MEQ/L (3.5-5.1); SODIUM LEVEL 135 MEQ/L (136-145)
[2022-02-20] MEDS: CALCIUM/VITAMIN D 500 MG TAB PO SCH ×3 (08:23→21:58)
[2022-02-20] MEDS: MULTIVITAMINS/MINERALS THERAP 1 TAB PO SCH (08:23)
[2022-02-20] MEDS: PANTOPRAZOLE 40MG VIAL IV SCH (08:23)
[2022-02-20] MEDS: LACTOBACILLUS ACIDOPHILUS CAP (BACID) PO SCH ×2 (08:23→18:23)
[2022-02-20] MEDS: predniSONE 10 MG TAB PO SCH (08:23)
[2022-02-20] MEDS: ACETAMINOPHEN TAB 650MG DOSE (2X325MG) PO PRN ×2 (14:20→23:07)
[2022-02-21] VITALS (8 sets, daily range): BP systolic 103–117; BP diastolic 54–64; O2SAT 96–98
[2022-02-21] MEDS: ALPRAZolam 0.25 MG TAB PO PRN (02:01)
[2022-02-21] MEDS: IPRATROPIUM 0.5MG/ALBUTEROL 2.5MG INH SOL UD 3ML (DUONEB) NEB SCH ×4 (02:50→20:33)
[2022-02-21] MEDS: HEPARIN SOD (PORCINE) 5000UNITS/ML 1ML VIAL/SYRINGE SQ SCH ×3 (06:13→21:41)
[2022-02-21] MEDS: SYMBICORT 80/4.5MCG INHALER 6GM INH SCH ×2 (07:28→20:33)
[2022-02-21] MEDS: LACTOBACILLUS ACIDOPHILUS CAP (BACID) PO SCH ×2 (08:16→18:16)
[2022-02-21] MEDS: MULTIVITAMINS/MINERALS THERAP 1 TAB PO SCH (08:16)
[2022-02-21] MEDS: predniSONE 10 MG TAB PO SCH (08:16)
[2022-02-21] MEDS: PANTOPRAZOLE 40MG VIAL IV SCH (08:16)
[2022-02-21] MEDS: CALCIUM/VITAMIN D 500 MG TAB PO SCH ×3 (08:16→21:41)
[2022-02-21 08:21] LABS: BASO % 0.4 % (0.0-1.0); EOS # 0.1 10^3/uL (0.0-0.5); EOS % 0.5 % (0.0-3.0); HEMATOCRIT 31.1 % (36.0-47.0); HEMOGLOBIN 9.7 g/dl (12.0-15.5); LYMPH % 18.5 % (24.0-44.0); MEAN CORPUSCULAR HGB CONC 31.2 g/dl (32.0-36.5); MEAN CORPUSCULAR VOLUME 89.6 fl (80.0-96.0); MONO # 1.2 10^3/uL (0.0-0.8); MONO % 10.4 % (2.0-8.0); NEUTROPHILS # 7.7 10^3/uL (1.5-8.5); NEUTROPHILS % 69.7 % (36.0-66.0); PLATELET COUNT, AUTOMATED 384 10^3/uL (150-450); RED BLOOD COUNT 3.47 10^6/uL (4.00-5.40)
[2022-02-21 08:42] LABS: ALT/SGPT 51 U/L (12-78); BILIRUBIN,TOTAL 0.3 MG/DL (0.2-1.0); BLOOD UREA NITROGEN 10 MG/DL (7-18); CALCIUM LEVEL 9.3 MG/DL (8.8-10.2); CARBON DIOXIDE LEVEL 37 MEQ/L (21-32); CHLORIDE LEVEL 94 MEQ/L (98-107); CREATININE FOR GFR 0.47 MG/DL (0.55-1.30); GLOMERULAR FILTRATION RATE > 60.0 (>45); GLUCOSE, FASTING 97 MG/DL (70-100); MAGNESIUM LEVEL 2.4 MG/DL (1.8-2.4); POTASSIUM SERUM 4.2 MEQ/L (3.5-5.1); SODIUM LEVEL 136 MEQ/L (136-145); TOTAL PROTEIN 6.7 GM/DL (6.4-8.2)
[2022-02-21] MEDS: ACETAMINOPHEN TAB 650MG DOSE (2X325MG) PO PRN (12:21)
[2022-02-21] MEDS: DOCUSATE SODIUM 100MG CAPSULE PO PRN (21:41)
[2022-02-22] VITALS (7 sets, daily range): BP systolic 105–119; BP diastolic 52–60; O2SAT 94
[2022-02-22] MEDS: ACETAMINOPHEN TAB 650MG DOSE (2X325MG) PO PRN ×2 (00:23→23:48)
[2022-02-22] MEDS: ALPRAZolam 0.25 MG TAB PO PRN ×3 (00:23→23:48)
[2022-02-22] MEDS: IPRATROPIUM 0.5MG/ALBUTEROL 2.5MG INH SOL UD 3ML (DUONEB) NEB SCH ×4 (01:54→19:56)
[2022-02-22 05:40] LABS: BASO % 0.3 % (0.0-1.0); EOS # 0.1 10^3/uL (0.0-0.5); EOS % 0.6 % (0.0-3.0); HEMATOCRIT 30.2 % (36.0-47.0); HEMOGLOBIN 9.2 g/dl (12.0-15.5); LYMPH # 2.7 10^3/uL (1.5-5.0); LYMPH % 27.9 % (24.0-44.0); MEAN CORPUSCULAR HEMOGLOBIN 27.5 pg (27.0-33.0); MEAN CORPUSCULAR HGB CONC 30.5 g/dl (32.0-36.5); MEAN CORPUSCULAR VOLUME 90.1 fl (80.0-96.0); MONO # 0.9 10^3/uL (0.0-0.8); MONO % 9.2 % (2.0-8.0); NEUTROPHILS # 5.9 10^3/uL (1.5-8.5); NEUTROPHILS % 61.6 % (36.0-66.0); PLATELET COUNT, AUTOMATED 346 10^3/uL (150-450); RED BLOOD COUNT 3.35 10^6/uL (4.00-5.40); WHITE BLOOD COUNT 9.7 10^3/uL (4.0-10.0)
[2022-02-22] MEDS: HEPARIN SOD (PORCINE) 5000UNITS/ML 1ML VIAL/SYRINGE SQ SCH ×3 (05:52→22:43)
[2022-02-22 06:10] LABS: BLOOD UREA NITROGEN 10 MG/DL (7-18); CARBON DIOXIDE LEVEL 37 MEQ/L (21-32); CHLORIDE LEVEL 96 MEQ/L (98-107); CREATININE FOR GFR 0.45 MG/DL (0.55-1.30); GLOMERULAR FILTRATION RATE > 60.0 (>45); GLUCOSE, FASTING 97 MG/DL (70-100); MAGNESIUM LEVEL 2.4 MG/DL (1.8-2.4); SODIUM LEVEL 136 MEQ/L (136-145)
[2022-02-22] MEDS: SYMBICORT 80/4.5MCG INHALER 6GM INH SCH ×2 (07:40→19:56)
[2022-02-22] MEDS ORDERED: MOM 30ML SUSPENSION UDC PO ONE (08:35)
[2022-02-22] MEDS: CALCIUM/VITAMIN D 500 MG TAB PO SCH ×3 (09:15→22:43)
[2022-02-22] MEDS: PANTOPRAZOLE 40MG VIAL IV SCH (09:15)
[2022-02-22] MEDS: LACTOBACILLUS ACIDOPHILUS CAP (BACID) PO SCH ×2 (09:15→17:51)
[2022-02-22] MEDS: MULTIVITAMINS/MINERALS THERAP 1 TAB PO SCH (09:15)
[2022-02-22] MEDS: DOCUSATE SODIUM 100MG CAPSULE PO PRN ×2 (17:51→22:45)
[2022-02-23] VITALS: BP 111/55
[2022-02-23] MEDS: IPRATROPIUM 0.5MG/ALBUTEROL 2.5MG INH SOL UD 3ML (DUONEB) NEB SCH ×2 (01:15→08:00)
[2022-02-23 03:42] VITALS: BP 112/54
[2022-02-23 05:42] LABS: BASO % 0.5 % (0.0-1.0); EOS # 0.2 10^3/uL (0.0-0.5); EOS % 2.1 % (0.0-3.0); HEMATOCRIT 29.1 % (36.0-47.0); HEMOGLOBIN 8.8 g/dl (12.0-15.5); LYMPH # 2.3 10^3/uL (1.5-5.0); MEAN CORPUSCULAR HGB CONC 30.2 g/dl (32.0-36.5); MEAN CORPUSCULAR VOLUME 89.3 fl (80.0-96.0); MONO # 0.8 10^3/uL (0.0-0.8); MONO % 9.8 % (2.0-8.0); NEUTROPHILS # 5.1 10^3/uL (1.5-8.5); NEUTROPHILS % 60.1 % (36.0-66.0); PLATELET COUNT, AUTOMATED 353 10^3/uL (150-450); RED BLOOD COUNT 3.26 10^6/uL (4.00-5.40); WHITE BLOOD COUNT 8.4 10^3/uL (4.0-10.0)
[2022-02-23 06:10] LABS: BLOOD UREA NITROGEN 8 MG/DL (7-18); CARBON DIOXIDE LEVEL 38 MEQ/L (21-32); CHLORIDE LEVEL 98 MEQ/L (98-107); CREATININE FOR GFR 0.45 MG/DL (0.55-1.30); GLOMERULAR FILTRATION RATE > 60.0 (>45); GLUCOSE, FASTING 92 MG/DL (70-100); MAGNESIUM LEVEL 2.5 MG/DL (1.8-2.4); POTASSIUM SERUM 4.9 MEQ/L (3.5-5.1); SODIUM LEVEL 137 MEQ/L (136-145)
[2022-02-23] MEDS: HEPARIN SOD (PORCINE) 5000UNITS/ML 1ML VIAL/SYRINGE SQ SCH ×3 (06:23→21:29)
[2022-02-23] MEDS: SYMBICORT 80/4.5MCG INHALER 6GM INH SCH ×2 (07:35→19:36)
[2022-02-23] MEDS: LACTOBACILLUS ACIDOPHILUS CAP (BACID) PO SCH ×2 (08:16→16:45)
[2022-02-23] MEDS: PANTOPRAZOLE 40MG VIAL IV SCH (08:16)
[2022-02-23] MEDS: MULTIVITAMINS/MINERALS THERAP 1 TAB PO SCH (08:16)
[2022-02-23] MEDS: CALCIUM/VITAMIN D 500 MG TAB PO SCH ×3 (08:16→21:29)
[2022-02-23] MEDS ORDERED: BISACODYL 10 MG SUPP PR ONE (09:00)
[2022-02-23] MEDS: ALPRAZolam 0.25 MG TAB PO PRN ×2 (12:22→16:44)
[2022-02-23 16:00] VITALS: BP 107/50
[2022-02-23] MEDS: ALBUTEROL SULFATE 2.5 MG/0.5 ML INH NEB SOLN NEB PRN (16:44)
[2022-02-23] MEDS: DOCUSATE SODIUM 100MG CAPSULE PO PRN (16:44)
[2022-02-23] MEDS: SODIUM CHLORIDE 0.9% NASAL GEL 15GM (AYR) SCH (21:29)
[2022-02-23 22:00] VITALS: BP 110/51
[2022-02-24] MEDS: ALPRAZolam 0.25 MG TAB PO PRN ×3 (00:35→23:46)
[2022-02-24] MEDS: ACETAMINOPHEN TAB 650MG DOSE (2X325MG) PO PRN ×2 (00:35→23:47)
[2022-02-24 05:54] LABS: HEMATOCRIT 29.3 % (36.0-47.0); HEMOGLOBIN 8.8 g/dl (12.0-15.5); MEAN CORPUSCULAR HEMOGLOBIN 27.8 pg (27.0-33.0); MEAN CORPUSCULAR VOLUME 92.7 fl (80.0-96.0); PLATELET COUNT, AUTOMATED 336 10^3/uL (150-450); RED BLOOD COUNT 3.16 10^6/uL (4.00-5.40); WHITE BLOOD COUNT 7.6 10^3/uL (4.0-10.0)
[2022-02-24 05:59] VITALS: BP 108/54
[2022-02-24 06:04] VITALS: O2SAT 99
[2022-02-24] MEDS: HEPARIN SOD (PORCINE) 5000UNITS/ML 1ML VIAL/SYRINGE SQ SCH ×3 (06:06→21:50)
[2022-02-24] MEDS: SYMBICORT 80/4.5MCG INHALER 6GM INH SCH ×2 (07:14→19:58)
[2022-02-24 07:21] LABS: BLOOD UREA NITROGEN 7 MG/DL (7-18); CALCIUM LEVEL 8.6 MG/DL (8.8-10.2); CARBON DIOXIDE LEVEL 40 MEQ/L (21-32); CHLORIDE LEVEL 98 MEQ/L (98-107); CREATININE FOR GFR 0.45 MG/DL (0.55-1.30); GLOMERULAR FILTRATION RATE > 60.0 (>45); GLUCOSE, FASTING 88 MG/DL (70-100); POTASSIUM SERUM 4.7 MEQ/L (3.5-5.1); SODIUM LEVEL 138 MEQ/L (136-145)
[2022-02-24] MEDS: SODIUM CHLORIDE 0.9% NASAL GEL 15GM (AYR) SCH ×2 (08:51→20:11)
[2022-02-24] MEDS: LACTOBACILLUS ACIDOPHILUS CAP (BACID) PO SCH ×2 (08:51→17:19)
[2022-02-24] MEDS: MULTIVITAMINS/MINERALS THERAP 1 TAB PO SCH (08:51)
[2022-02-24] MEDS: CALCIUM/VITAMIN D 500 MG TAB PO SCH ×3 (08:51→20:11)
[2022-02-24] MEDS: PANTOPRAZOLE 40MG VIAL IV SCH (08:51)
[2022-02-24 11:02] VITALS: O2SAT 97
[2022-02-24 14:00] VITALS: BP 102/61
[2022-02-24] MEDS: SIMETHICONE 80MG CHEW TAB PO PRN (17:20)
[2022-02-24] MEDS: DOCUSATE SODIUM 100MG CAPSULE PO PRN (17:20)
[2022-02-24] MEDS: ALBUTEROL SULFATE 2.5 MG/0.5 ML INH NEB SOLN NEB PRN (19:58)
[2022-02-24 22:00] VITALS: BP 119/62
[2022-02-25 02:36] VITALS: O2SAT 99
[2022-02-25] MEDS: HEPARIN SOD (PORCINE) 5000UNITS/ML 1ML VIAL/SYRINGE SQ SCH ×3 (05:09→20:16)
[2022-02-25 06:00] VITALS: BP 106/53
[2022-02-25 06:01] LABS: HEMATOCRIT 30.4 % (36.0-47.0); HEMOGLOBIN 8.9 g/dl (12.0-15.5); MEAN CORPUSCULAR HEMOGLOBIN 27.1 pg (27.0-33.0); MEAN CORPUSCULAR HGB CONC 29.3 g/dl (32.0-36.5); MEAN CORPUSCULAR VOLUME 92.7 fl (80.0-96.0); PLATELET COUNT, AUTOMATED 326 10^3/uL (150-450); RED BLOOD COUNT 3.28 10^6/uL (4.00-5.40)
[2022-02-25 06:28] LABS: BLOOD UREA NITROGEN 7 MG/DL (7-18); CALCIUM LEVEL 9.2 MG/DL (8.8-10.2); CARBON DIOXIDE LEVEL 38 MEQ/L (21-32); CHLORIDE LEVEL 97 MEQ/L (98-107); CREATININE FOR GFR 0.42 MG/DL (0.55-1.30); GLOMERULAR FILTRATION RATE > 60.0 (>45); GLUCOSE, FASTING 93 MG/DL (70-100); POTASSIUM SERUM 4.6 MEQ/L (3.5-5.1); SODIUM LEVEL 137 MEQ/L (136-145)
[2022-02-25] MEDS: ALBUTEROL SULFATE 2.5 MG/0.5 ML INH NEB SOLN NEB PRN ×2 (07:29→19:31)
[2022-02-25] MEDS: SYMBICORT 80/4.5MCG INHALER 6GM INH SCH ×2 (07:29→19:31)
[2022-02-25 09:00] VITALS: O2SAT 94
[2022-02-25] MEDS: DOCUSATE SODIUM 100MG CAPSULE PO PRN ×2 (09:57→20:26)
[2022-02-25] MEDS: MULTIVITAMINS/MINERALS THERAP 1 TAB PO SCH (09:57)
[2022-02-25] MEDS: SODIUM CHLORIDE 0.9% NASAL GEL 15GM (AYR) SCH ×2 (09:57→20:16)
[2022-02-25] MEDS: MIRALAX *UNIT DOSE* 17GM PACKET PO PRN (09:57)
[2022-02-25] MEDS: CALCIUM/VITAMIN D 500 MG TAB PO SCH ×3 (09:57→20:15)
[2022-02-25] MEDS: PANTOPRAZOLE 40MG VIAL IV SCH (09:57)
[2022-02-25] MEDS: LACTOBACILLUS ACIDOPHILUS CAP (BACID) PO SCH ×2 (09:58→17:56)
[2022-02-25] MEDS: ACETAMINOPHEN TAB 650MG DOSE (2X325MG) PO PRN (12:37)
[2022-02-25 14:00] VITALS: BP 112/68
[2022-02-25] MEDS: SIMETHICONE 80MG CHEW TAB PO PRN (17:55)
[2022-02-25 22:00] VITALS: BP 122/66
[2022-02-26] MEDS: ACETAMINOPHEN TAB 650MG DOSE (2X325MG) PO PRN ×2 (00:24→09:33)
[2022-02-26] MEDS: ALPRAZolam 0.25 MG TAB PO PRN ×2 (00:24→12:27)
[2022-02-26 01:44] VITALS: O2SAT 96
[2022-02-26] MEDS: HEPARIN SOD (PORCINE) 5000UNITS/ML 1ML VIAL/SYRINGE SQ SCH (05:43)
[2022-02-26 06:00] VITALS: BP 110/58
[2022-02-26 06:06] LABS: HEMATOCRIT 30.2 % (36.0-47.0); MEAN CORPUSCULAR HEMOGLOBIN 27.8 pg (27.0-33.0); MEAN CORPUSCULAR HGB CONC 29.8 g/dl (32.0-36.5); MEAN CORPUSCULAR VOLUME 93.2 fl (80.0-96.0); PLATELET COUNT, AUTOMATED 307 10^3/uL (150-450); RED BLOOD COUNT 3.24 10^6/uL (4.00-5.40); WHITE BLOOD COUNT 6.2 10^3/uL (4.0-10.0)
[2022-02-26 06:38] LABS: BLOOD UREA NITROGEN 8 MG/DL (7-18); CALCIUM LEVEL 8.6 MG/DL (8.8-10.2); CARBON DIOXIDE LEVEL 39 MEQ/L (21-32); CHLORIDE LEVEL 95 MEQ/L (98-107); CREATININE FOR GFR 0.38 MG/DL (0.55-1.30); GLOMERULAR FILTRATION RATE > 60.0 (>45); GLUCOSE, FASTING 75 MG/DL (70-100); POTASSIUM SERUM 4.7 MEQ/L (3.5-5.1); SODIUM LEVEL 137 MEQ/L (136-145)
[2022-02-26] MEDS: SYMBICORT 80/4.5MCG INHALER 6GM INH SCH (07:31)
[2022-02-26] MEDS: ALBUTEROL SULFATE 2.5 MG/0.5 ML INH NEB SOLN NEB PRN (07:31)
[2022-02-26] MEDS ORDERED: BISACODYL 10 MG SUPP PR PRN (08:00)
[2022-02-26 09:00] VITALS: O2SAT 98
[2022-02-26] MEDS ORDERED: PNEUMOCOCCAL VACCINE 0.5ML SYRINGE (PNEUMOVAX 23) IM.IMMUN ONE (09:00)
[2022-02-26] MEDS: CALCIUM/VITAMIN D 500 MG TAB PO SCH (09:24)
[2022-02-26] MEDS: PANTOPRAZOLE 40MG VIAL IV SCH (09:24)
[2022-02-26] MEDS: MULTIVITAMINS/MINERALS THERAP 1 TAB PO SCH (09:24)
[2022-02-26] MEDS: LACTOBACILLUS ACIDOPHILUS CAP (BACID) PO SCH (09:24)
[2022-02-26] MEDS: SODIUM CHLORIDE 0.9% NASAL GEL 15GM (AYR) SCH (09:27)
[2022-02-26] MEDS ORDERED: ALPR0.25 PO (10:27)
[2022-02-26] MEDS ORDERED: BISA10SU PR (10:27)
[2022-02-26] MEDS ORDERED: MIRA1POW3 PO (10:27)
[2022-02-26] MEDS ORDERED: SODIGEL (10:27)
[2022-02-26] MEDS ORDERED: ACET650T15 PO (10:27)
[2022-02-26] MEDS ORDERED: SYMB80INH INH (10:27)
[2022-02-26] MEDS ORDERED: COLA100C5 PO (10:27)
[2022-02-26] MEDS ORDERED: ALB2.5NEB INH (10:27)
[2022-02-26 12:28] VITALS: BP 132/71
[2022-02-26] MEDS: MIRALAX *UNIT DOSE* 17GM PACKET PO PRN (12:28)
[2022-02-26] MEDS: SIMETHICONE 80MG CHEW TAB PO PRN (12:28)
[2022-02-26] MEDS: DOCUSATE SODIUM 100MG CAPSULE PO PRN (12:28)
[2022-02-26] MEDS ORDERED: DILT60CASR PO (13:31)
[2022-02-26] MEDS ORDERED: AMOX875T2 PO (14:33)
[2022-02-26] MEDS ORDERED: PRED20TA PO (14:33)
== END 2022-02-26 14:23 | disposition home health service (06) | DRG 951 ==
LOC: M ED 18:10 → M ED INP 23:26 → ENRESERV 02-08 11:30 → M ICU 02-08 13:05 → M PCU 02-13 16:53 → M MSPAV 02-23 15:48
PROVIDERS: ADMIT Family Medicine; ATTEND Internal Medicine
PROC: BW24YZZ Computerized Tomography (CT Scan) of Chest and Abdomen using Other Contrast (ICD-10-PCS; principal; 2022-02-07)
PROC: B246ZZZ Ultrasonography of Right and Left Heart (ICD-10-PCS; 2022-02-08)
PROC: 03HY32Z Insertion of Monitoring Device into Upper Artery, Percutaneous Approach (ICD-10-PCS; 2022-02-08)
PROC: 5A09457 Assistance with Respiratory Ventilation, 24-96 Consecutive Hours, Continuous Positive Airway Pressure (ICD-10-PCS; 2022-02-08)
DX: J96.22 Acute and chronic respiratory failure with hypercapnia (principal); K44.9 Diaphragmatic hernia without obstruction or gangrene; J44.1 Chronic obstructive pulmonary disease with (acute) exacerbation; Z99.81 Dependence on supplemental oxygen; Z91.14 Patient's other noncompliance with medication regimen; M19.90 Unspecified osteoarthritis, unspecified site; Z90.49 Acquired absence of other specified parts of digestive tract; Z87.891 Personal history of nicotine dependence; Z20.822 Contact with and (suspected) exposure to COVID-19; Z79.51 Long term (current) use of inhaled steroids; Z79.899 Other long term (current) drug therapy; Z88.6 Allergy status to analgesic agent; Z91.018 Allergy to other foods; I31.3 Pericardial effusion (noninflammatory); E87.1 Hypo-osmolality and hyponatremia; I47.1 Supraventricular tachycardia; K21.9 Gastro-esophageal reflux disease without esophagitis; D64.9 Anemia, unspecified; M32.9 Systemic lupus erythematosus, unspecified; I27.20 Pulmonary hypertension, unspecified; E83.39 Other disorders of phosphorus metabolism; J96.21 Acute and chronic respiratory failure with hypoxia; J06.9 Acute upper respiratory infection, unspecified; J90 Pleural effusion, not elsewhere classified; I50.810 Right heart failure, unspecified; R33.9 Retention of urine, unspecified

== ENCOUNTER 2022-06-23 23:03 | Emergency (ER) | payer MEDICAID, OTHER, SELFPAY ==
[~2022-06-23] VITALS: Ht 172.7 cm; Wt 56.8 kg
[~2022-06-23 23:03] MED LIST changes: +ACET650T15 PO; +ALB2.5NEB INH; +ALPR0.25 PO; +AMOX875T2 PO; +BISA10SU PR; +DILT60CASR PO; +MIRA1POW3 PO; +SODIGEL; +SYMB80INH INH
[2022-06-24 00:05] LABS: ABG BASE EXCESS 3.8 (-2.0-2.0); ABG HCO3 29.5 MEQ/L (22.0-26.0); ABG O2 SATURATION 99.6 % (95.0-99.0); ABG PARTIAL PRESSURE CO2 50.6 mmHg (35.0-45.0); ABG PARTIAL PRESSURE O2 224.7 mmHg (75.0-100.0); ABG STANDARD HCO3 27.9 MEQ/L (22.0-26.0); ABG TOTAL CO2 31.1 MEQ/L (23.0-31.0); ABG pH (ARTERIAL) 7.384 UNITS (7.350-7.450)
[2022-06-24 00:36] LABS: ALBUMIN 3.6 GM/DL (3.2-5.2); ALT/SGPT 17 U/L (12-78); BILIRUBIN,DIRECT 0.1 MG/DL (0.0-0.2); BILIRUBIN,TOTAL 0.3 MG/DL (0.2-1.0); BLOOD UREA NITROGEN 9 MG/DL (7-18); CARBON DIOXIDE LEVEL 32 MEQ/L (21-32); CHLORIDE LEVEL 93 MEQ/L (98-107); CREATININE FOR GFR 0.55 MG/DL (0.55-1.30); GLOMERULAR FILTRATION RATE > 60.0 (>45); GLUCOSE, FASTING 99 MG/DL (70-100); POTASSIUM SERUM 4.6 MEQ/L (3.5-5.1); SODIUM LEVEL 130 MEQ/L (136-145); TOTAL PROTEIN 6.9 GM/DL (6.4-8.2)
[2022-06-24 00:39] LABS: CPK CREATINE PHOSPHOKINASE 141 U/L (26-192)
[2022-06-24] MEDS ORDERED: LORazepam 2 MG/ML VIAL IV STA (00:41)
[2022-06-24 01:02] LABS: BASO # 0.1 10^3/uL (0.0-0.2); EOS % 0.5 % (0.0-3.0); HEMATOCRIT 29.9 % (36.0-47.0); HEMOGLOBIN 9.1 g/dl (12.0-15.5); LYMPH # 1.5 10^3/uL (1.5-5.0); LYMPH % 24.4 % (24.0-44.0); MEAN CORPUSCULAR HEMOGLOBIN 26.5 pg (27.0-33.0); MEAN CORPUSCULAR HGB CONC 30.4 g/dl (32.0-36.5); MEAN CORPUSCULAR VOLUME 86.9 fl (80.0-96.0); MONO # 0.7 10^3/uL (0.0-0.8); MONO % 11.5 % (2.0-8.0); NEUTROPHILS # 3.8 10^3/uL (1.5-8.5); NEUTROPHILS % 62.4 % (36.0-66.0); PLATELET COUNT, AUTOMATED 339 10^3/uL (150-450); RED BLOOD COUNT 3.44 10^6/uL (4.00-5.40)
[2022-06-24 02:27] LABS: CPK CREATINE PHOSPHOKINASE 122 U/L (26-192)
[2022-06-24] MEDS ORDERED: ALPR0.25 PO (03:12)
[2022-06-24 03:30] VITALS: BP 135/68
== END 2022-06-24 04:15 | disposition home or self-care (01) ==
LOC: M ED 23:03 → EDBD 23:03 → M ED 06-24 04:15
DX: F41.1 Generalized anxiety disorder (principal); J44.9 Chronic obstructive pulmonary disease, unspecified; K44.9 Diaphragmatic hernia without obstruction or gangrene; Z99.81 Dependence on supplemental oxygen; Z87.891 Personal history of nicotine dependence; Z79.899 Other long term (current) drug therapy; Z91.018 Allergy to other foods; Z88.8 Allergy status to other drugs, medicaments and biological substances
CPT/HCPCS: 36600; 71045; 80048; 80076; 82550; 82803; 83605; 85025; 87040; 87486; 87581; 87633; 87798; 93005; 93041; 94640; 94760; 96374; 99285; J2060

== ENCOUNTER 2023-01-28 14:57 | Inpatient (IN) | payer MEDICARE, OTHER ==
[~2023-01-28] VITALS: Ht 177.8 cm; Wt 56.0 kg
[~2023-01-28 14:57] MED LIST changes: -DOXY-350 PO; +DOXY-444 PO; +FLUT50SP17; -FLUTISP
[2023-01-28] MEDS ORDERED: IPRATROPIUM 0.5MG/ALBUTEROL 2.5MG INH SOL UD 3ML (DUONEB) NEB ONE ×2 (15:20→16:55)
[2023-01-28] MEDS ORDERED: ALBUTEROL SULFATE 2.5MG/0.5ML INH NEB SOLN INH ONE (15:20)
[2023-01-28] MEDS ORDERED: ALPRAZolam 0.25 MG TAB PO ONE (15:40)
[2023-01-28 15:44] LABS: ABG BASE EXCESS 3.3 (-2.0-2.0); ABG HCO3 29.5 MMOL/L (22.0-26.0); ABG PARTIAL PRESSURE CO2 53.7 mmHg (35.0-45.0); ABG PARTIAL PRESSURE O2 78.2 mmHg (75.0-100.0); ABG STANDARD HCO3 27.3 MMOL/L. (22.0-26.0); ABG TOTAL CO2 31.1 MMOL/L (23.0-31.0); ABG pH (ARTERIAL) 7.357 UNITS (7.350-7.450)
[2023-01-28 15:51] LABS: BASO # 0.1 10^3/uL (0.0-0.2); BASO % 0.3 % (0.0-1.0); HEMATOCRIT 27.5 % (36.0-47.0); HEMOGLOBIN 7.9 g/dl (12.0-15.5); LYMPH % 5.4 % (24.0-44.0); MEAN CORPUSCULAR HEMOGLOBIN 24.7 pg (27.0-33.0); MEAN CORPUSCULAR HGB CONC 28.7 g/dl (32.0-36.5); MEAN CORPUSCULAR VOLUME 85.9 fl (80.0-96.0); MONO # 0.9 10^3/uL (0.0-0.8); MONO % 4.9 % (2.0-8.0); NEUTROPHILS # 16.2 10^3/uL (1.5-8.5); PLATELET COUNT, AUTOMATED 351 10^3/uL (150-450); WHITE BLOOD COUNT 18.2 10^3/uL (4.0-10.0)
[2023-01-28 16:01] LABS: INR 0.98; PROTHROMBIN TIME 13.2 SECONDS (12.5-14.5)
[2023-01-28 16:19] LABS: CK-MB VALUE MASS 1.8 NG/ML (<3.6)
[2023-01-28 16:21] LABS: ALBUMIN 2.3 G/DL (3.2-5.2); ALKALINE PHOSPHATASE 81 U/L (46-116); ALT/SGPT 12 U/L (7.0-40); AST/SGOT 12 U/L (<34); BILIRUBIN,DIRECT 0.2 MG/DL (<0.4); BILIRUBIN,TOTAL 0.4 MG/DL (0.3-1.2); BLOOD UREA NITROGEN 8 MG/DL (9-23); CALCIUM LEVEL 6.4 MG/DL (8.3-10.6); CARBON DIOXIDE LEVEL 27 MMOL/L (20-31); CHLORIDE LEVEL 98 MMOL/L (98-107); CPK CREATINE PHOSPHOKINASE 51 U/L (34-145); CREATININE FOR GFR 0.28 MG/DL (0.55-1.30); GLOMERULAR FILTRATION RATE > 60.0 (>45); GLUCOSE, FASTING 76 MG/DL (74-106); MB/CK RELATIVE INDEX 3.52 (< OR =4); POTASSIUM SERUM 3.8 MMOL/L (3.5-5.1); SODIUM LEVEL 132 MMOL/L (136-145); TOTAL PROTEIN 5.2 G/DL (5.7-8.2)
[2023-01-28 16:23] LABS: THYROID STIMULATING HORMONE 2.355 uIU/ML (0.55-4.78); THYROXINE (T4) 7.2 UG/DL (4.5-10.9)
[2023-01-28 17:09] LABS: CK-MB VALUE MASS 2.8 NG/ML (<3.6)
[2023-01-28 17:10] LABS: MB/CK RELATIVE INDEX 4.3 (< OR =4)
[2023-01-28] MEDS ORDERED: IPRATROPIUM 0.5MG/ALBUTEROL 2.5MG INH SOL UD 3ML (DUONEB) NEB PRN (17:30)
[2023-01-28] MEDS ORDERED: FLON1SPR NARES (17:56)
[2023-01-28] MEDS ORDERED: IPRA0.00 INH (17:56)
[2023-01-28] MEDS ORDERED: IBUP200C28 PO (17:56)
[2023-01-28] MEDS ORDERED: DILT60CASR PO (17:56)
[2023-01-28] MEDS ORDERED: XANA0.25 PO (17:56)
[2023-01-28] MEDS ORDERED: MM S100C PO (17:57)
[2023-01-28] MEDS ORDERED: SYMB80INH INH (17:57)
[2023-01-28] MEDS ORDERED: MIRA3350 PO (17:57)
[2023-01-28] MEDS ORDERED: HOME MED LIST COMPLETE! XX SCH (18:05)
[2023-01-28] MEDS: cefTRIAXone SOD 1 GM in D5W MINI-BAG PLUS 50 ML IV SCH (18:32)
[2023-01-28] MEDS: methylPREDNISolone 125MG 2ML VIAL IV SCH (18:33)
[2023-01-28] MEDS: IPRATROPIUM 0.5MG/ALBUTEROL 2.5MG INH SOL UD 3ML (DUONEB) NEB SCH (19:55)
[2023-01-28 20:54] VITALS: BP 137/60
[2023-01-28 21:00] VITALS: O2SAT 91
[2023-01-28] MEDS: DOXYCYCLINE HYCLATE 100 MG in D5W MINI-BAG PLUS 100 ML IV SCH (21:20)
[2023-01-28 21:41] LABS: CK-MB VALUE MASS 3.6 NG/ML (<3.6); MB/CK RELATIVE INDEX 4.8 (< OR =4)
[2023-01-28 22:00] VITALS: O2SAT 95
[2023-01-28] MEDS ORDERED: ACETAMINOPHEN 500 MG TAB PO ONE (22:05)
[2023-01-28 23:00] VITALS: O2SAT 98
[2023-01-28 23:37] VITALS: BP 133/62
[2023-01-29] VITALS (17 sets, daily range): BP systolic 124–132; BP diastolic 59–62; O2SAT 89–100
[2023-01-29] MEDS: IPRATROPIUM 0.5MG/ALBUTEROL 2.5MG INH SOL UD 3ML (DUONEB) NEB SCH ×6 (00:12→19:27)
[2023-01-29 00:42] LABS: HEMATOCRIT 29.6 % (36.0-47.0); HEMOGLOBIN 8.7 g/dl (12.0-15.5)
[2023-01-29] MEDS: methylPREDNISolone 125MG 2ML VIAL IV SCH ×3 (01:32→17:49)
[2023-01-29 04:20] LABS: HEMOGLOBIN 8.9 g/dl (12.0-15.5); MEAN CORPUSCULAR HEMOGLOBIN 25.1 pg (27.0-33.0); MEAN CORPUSCULAR HGB CONC 28.7 g/dl (32.0-36.5); MEAN CORPUSCULAR VOLUME 87.6 fl (80.0-96.0); PLATELET COUNT, AUTOMATED 359 10^3/uL (150-450); RED BLOOD COUNT 3.54 10^6/uL (4.00-5.40); WHITE BLOOD COUNT 15.8 10^3/uL (4.0-10.0)
[2023-01-29 04:57] LABS: BLOOD UREA NITROGEN 13 MG/DL (9-23); CALCIUM LEVEL 8.9 MG/DL (8.3-10.6); CARBON DIOXIDE LEVEL 35 MMOL/L (20-31); CHLORIDE LEVEL 88 MMOL/L (98-107); CREATININE FOR GFR 0.33 MG/DL (0.55-1.30); GLOMERULAR FILTRATION RATE > 60.0 (>45); GLUCOSE, FASTING 108 MG/DL (74-106); MAGNESIUM LEVEL 1.7 MG/DL (1.8-2.4); SODIUM LEVEL 126 MMOL/L (136-145)
[2023-01-29] MEDS ORDERED: NS 500 ML IV ONE (05:15)
[2023-01-29] MEDS ORDERED: MAG SULF 1GM/100ML (MAG RUN) 1 GM in IV 1 EA IV ONE (06:00)
[2023-01-29 08:38] LABS: IRON (FE) 17 UG/DL (50-170); PERCENT SATURATION 4.9 % (13.2-45.0); TOTAL IRON BINDING CAPACITY 345 UG/DL (250-425)
[2023-01-29 08:41] LABS: FOLATE 14.9 NG/ML (>5.4); VITAMIN B12 LEVEL 363 PG/ML (211-911)
[2023-01-29] MEDS: DOXYCYCLINE HYCLATE 100 MG in D5W MINI-BAG PLUS 100 ML IV SCH ×2 (09:12→20:25)
[2023-01-29] MEDS: ENOXAPARIN 40MG/0.4ML SYRINGE (J1650 PER 10MG) SC SCH (09:13)
[2023-01-29] MEDS ORDERED: PILL CUTTER 1 EACH XX PRN (11:15)
[2023-01-29 11:40] LABS: BLOOD UREA NITROGEN 15 MG/DL (9-23); CALCIUM LEVEL 8.3 MG/DL (8.3-10.6); CARBON DIOXIDE LEVEL 35 MMOL/L (20-31); CHLORIDE LEVEL 90 MMOL/L (98-107); CREATININE FOR GFR 0.31 MG/DL (0.55-1.30); GLOMERULAR FILTRATION RATE > 60.0 (>45); GLUCOSE, FASTING 116 MG/DL (74-106); SODIUM LEVEL 126 MMOL/L (136-145)
[2023-01-29] MEDS: MOM 30ML SUSPENSION UDC PO SCH (11:43)
[2023-01-29] MEDS: SIMETHICONE 80MG CHEW TAB PO PRN (11:43)
[2023-01-29] MEDS: SENOKOT S TAB PO SCH ×2 (11:43→20:25)
[2023-01-29 11:59] LABS: OSMOLALITY URINE 506 MOSM/KG (50-1400)
[2023-01-29 12:27] LABS: SODIUM,RANDOM URINE 28 MMOL/L
[2023-01-29] MEDS: SYMBICORT 160/4.5MCG INHALER 6GM INH SCH ×2 (13:00→19:27)
[2023-01-29] MEDS: cefTRIAXone SOD 1 GM in D5W MINI-BAG PLUS 50 ML IV SCH (17:49)
[2023-01-29] MEDS: SODIUM CHLORIDE 1 GM TAB PO SCH (20:25)
[2023-01-29] MEDS ORDERED: SODIUM CHLORIDE 1 GM TAB PO SCH (21:00)
[2023-01-29] MEDS ORDERED: ACETAMINOPHEN 500 MG TAB PO ONE (22:00)
[2023-01-30] VITALS (21 sets, daily range): BP systolic 122–136; BP diastolic 56–64; O2SAT 86–99
[2023-01-30] MEDS: IPRATROPIUM 0.5MG/ALBUTEROL 2.5MG INH SOL UD 3ML (DUONEB) NEB SCH ×7 (00:04→23:16)
[2023-01-30] MEDS: methylPREDNISolone 125MG 2ML VIAL IV SCH ×3 (01:31→17:35)
[2023-01-30] MEDS: SODIUM CHLORIDE NASAL 0.65% SPRAY BTL (OCEAN) SCH ×4 (01:32→21:23)
[2023-01-30 03:39] LABS: BASO % 0.2 % (0.0-1.0); HEMATOCRIT 29.8 % (36.0-47.0); HEMOGLOBIN 8.5 g/dl (12.0-15.5); LYMPH # 0.5 10^3/uL (1.5-5.0); LYMPH % 3.8 % (24.0-44.0); MEAN CORPUSCULAR HEMOGLOBIN 25.1 pg (27.0-33.0); MEAN CORPUSCULAR HGB CONC 28.5 g/dl (32.0-36.5); MEAN CORPUSCULAR VOLUME 88.2 fl (80.0-96.0); MONO # 0.5 10^3/uL (0.0-0.8); MONO % 4.2 % (2.0-8.0); NEUTROPHILS # 11.3 10^3/uL (1.5-8.5); NEUTROPHILS % 91.5 % (36.0-66.0); PLATELET COUNT, AUTOMATED 326 10^3/uL (150-450); RED BLOOD COUNT 3.38 10^6/uL (4.00-5.40); WHITE BLOOD COUNT 12.3 10^3/uL (4.0-10.0)
[2023-01-30 03:57] LABS: BLOOD UREA NITROGEN 16 MG/DL (9-23); CALCIUM LEVEL 8.7 MG/DL (8.3-10.6); CARBON DIOXIDE LEVEL 39 MMOL/L (20-31); CHLORIDE LEVEL 90 MMOL/L (98-107); CREATININE FOR GFR 0.33 MG/DL (0.55-1.30); GLOMERULAR FILTRATION RATE > 60.0 (>45); GLUCOSE, FASTING 113 MG/DL (74-106); POTASSIUM SERUM 5.7 MMOL/L (3.5-5.1); SODIUM LEVEL 128 MMOL/L (136-145)
[2023-01-30] MEDS ORDERED: PATIROMER SORBITEX CALCIUM 8.4 GM POWDER PACKET (VELTASSA) PO ONE (05:00)
[2023-01-30 08:12] LABS: MAGNESIUM LEVEL 1.9 MG/DL (1.8-2.4)
[2023-01-30] MEDS: DOXYCYCLINE HYCLATE 100 MG in D5W MINI-BAG PLUS 100 ML IV SCH ×2 (08:23→21:23)
[2023-01-30] MEDS: ENOXAPARIN 40MG/0.4ML SYRINGE (J1650 PER 10MG) SC SCH (08:23)
[2023-01-30] MEDS: MOM 30ML SUSPENSION UDC PO SCH (08:23)
[2023-01-30] MEDS: SODIUM CHLORIDE 1 GM TAB PO SCH ×2 (08:24→21:23)
[2023-01-30] MEDS: SENOKOT S TAB PO SCH ×2 (08:24→21:23)
[2023-01-30] MEDS: SYMBICORT 160/4.5MCG INHALER 6GM INH SCH ×2 (08:41→20:06)
[2023-01-30] MEDS ORDERED: TOLVAPTAN 7.5 MG HALF-TAB PO ONE (10:00)
[2023-01-30] MEDS ORDERED: ALBUTEROL 90 MCG/ACT 8GM HFA INHALER INH PRN (11:00)
[2023-01-30 13:09] LABS: OSMOLALITY URINE 532 MOSM/KG (50-1400)
[2023-01-30 13:22] LABS: SODIUM,RANDOM URINE 16 MMOL/L
[2023-01-31] VITALS (23 sets, daily range): BP systolic 121–140; BP diastolic 59–77; O2SAT 85–100
[2023-01-31] MEDS: methylPREDNISolone 125MG 2ML VIAL IV SCH ×3 (01:54→17:49)
[2023-01-31] MEDS: IPRATROPIUM 0.5MG/ALBUTEROL 2.5MG INH SOL UD 3ML (DUONEB) NEB SCH ×6 (03:21→23:12)
[2023-01-31 06:49] LABS: BASO % 0.1 % (0.0-1.0); HEMATOCRIT 30.5 % (36.0-47.0); HEMOGLOBIN 8.5 g/dl (12.0-15.5); LYMPH # 0.3 10^3/uL (1.5-5.0); LYMPH % 4.3 % (24.0-44.0); MEAN CORPUSCULAR HEMOGLOBIN 25.1 pg (27.0-33.0); MEAN CORPUSCULAR HGB CONC 27.9 g/dl (32.0-36.5); MONO # 0.4 10^3/uL (0.0-0.8); NEUTROPHILS # 6.5 10^3/uL (1.5-8.5); NEUTROPHILS % 90.3 % (36.0-66.0); PLATELET COUNT, AUTOMATED 334 10^3/uL (150-450); RED BLOOD COUNT 3.39 10^6/uL (4.00-5.40); WHITE BLOOD COUNT 7.2 10^3/uL (4.0-10.0)
[2023-01-31 07:17] LABS: BLOOD UREA NITROGEN 16 MG/DL (9-23); CALCIUM LEVEL 8.9 MG/DL (8.3-10.6); CARBON DIOXIDE LEVEL > 40.0 MMOL/L (20-31); CHLORIDE LEVEL 90 MMOL/L (98-107); CORTISOL AM 8.8 UG/DL (4.3-22.4); CREATININE FOR GFR 0.31 MG/DL (0.55-1.30); GLOMERULAR FILTRATION RATE > 60.0 (>45); GLUCOSE, FASTING 124 MG/DL (74-106); POTASSIUM SERUM 5.1 MMOL/L (3.5-5.1); SODIUM LEVEL 133 MMOL/L (136-145)
[2023-01-31] MEDS: ENOXAPARIN 40MG/0.4ML SYRINGE (J1650 PER 10MG) SC SCH (08:46)
[2023-01-31] MEDS: SODIUM CHLORIDE 1 GM TAB PO SCH ×2 (08:47→21:28)
[2023-01-31] MEDS: MOM 30ML SUSPENSION UDC PO SCH (08:48)
[2023-01-31] MEDS: SODIUM CHLORIDE NASAL 0.65% SPRAY BTL (OCEAN) SCH ×3 (08:49→21:28)
[2023-01-31] MEDS: SENOKOT S TAB PO SCH ×2 (08:49→21:28)
[2023-01-31] MEDS ORDERED: FERRIC CARBOXYMALTOSE INJ 750 MG, VIAL MATE ADAPTER 1 EACH in NS 250 ML IV ONE (09:00)
[2023-01-31] MEDS: SYMBICORT 160/4.5MCG INHALER 6GM INH SCH ×2 (09:06→19:59)
[2023-01-31] MEDS: DOXYCYCLINE HYCLATE 100MG TABLET PO SCH ×2 (10:12→21:28)
[2023-01-31] MEDS: ALPRAZolam 0.25 MG TAB PO PRN (21:29)
[2023-01-31] MEDS ORDERED: ACETAMINOPHEN TAB 650MG DOSE (2X325MG) PO ONE (22:00)
[2023-02-01] VITALS (13 sets, daily range): BP systolic 126–144; BP diastolic 55–67; O2SAT 89–100
[2023-02-01] MEDS: methylPREDNISolone 125MG 2ML VIAL IV SCH ×3 (02:41→20:25)
[2023-02-01] MEDS: IPRATROPIUM 0.5MG/ALBUTEROL 2.5MG INH SOL UD 3ML (DUONEB) NEB SCH ×6 (03:04→23:11)
[2023-02-01 06:54] LABS: HEMATOCRIT 31.5 % (36.0-47.0); HEMOGLOBIN 8.6 g/dl (12.0-15.5); LYMPH # 0.4 10^3/uL (1.5-5.0); LYMPH % 5.6 % (24.0-44.0); MEAN CORPUSCULAR HEMOGLOBIN 24.9 pg (27.0-33.0); MEAN CORPUSCULAR HGB CONC 27.3 g/dl (32.0-36.5); MONO # 0.4 10^3/uL (0.0-0.8); MONO % 5.1 % (2.0-8.0); NEUTROPHILS # 6.2 10^3/uL (1.5-8.5); NEUTROPHILS % 88.4 % (36.0-66.0); PLATELET COUNT, AUTOMATED 311 10^3/uL (150-450); RED BLOOD COUNT 3.46 10^6/uL (4.00-5.40)
[2023-02-01 07:22] LABS: BLOOD UREA NITROGEN 16 MG/DL (9-23); CALCIUM LEVEL 8.8 MG/DL (8.3-10.6); CARBON DIOXIDE LEVEL > 40.0 MMOL/L (20-31); CHLORIDE LEVEL 92 MMOL/L (98-107); GLOMERULAR FILTRATION RATE > 60.0 (>45); GLUCOSE, FASTING 122 MG/DL (74-106); POTASSIUM SERUM 4.8 MMOL/L (3.5-5.1); SODIUM LEVEL 136 MMOL/L (136-145)
[2023-02-01] MEDS: SYMBICORT 160/4.5MCG INHALER 6GM INH SCH ×2 (08:11→20:08)
[2023-02-01] MEDS: MOM 30ML SUSPENSION UDC PO SCH (08:56)
[2023-02-01] MEDS: DOXYCYCLINE HYCLATE 100MG TABLET PO SCH ×2 (08:56→20:25)
[2023-02-01] MEDS: ENOXAPARIN 40MG/0.4ML SYRINGE (J1650 PER 10MG) SC SCH (08:56)
[2023-02-01] MEDS: SODIUM CHLORIDE 1 GM TAB PO SCH (08:57)
[2023-02-01] MEDS: SIMETHICONE 80MG CHEW TAB PO PRN (08:57)
[2023-02-01] MEDS: ALPRAZolam 0.25 MG TAB PO PRN (08:57)
[2023-02-01] MEDS: SENOKOT S TAB PO SCH ×2 (08:57→20:25)
[2023-02-01] MEDS: SODIUM CHLORIDE NASAL 0.65% SPRAY BTL (OCEAN) SCH ×3 (08:58→20:25)
[2023-02-01] MEDS ORDERED: FUROSEMIDE 40MG/4ML VIAL IV ONE (09:40)
[2023-02-01] MEDS ORDERED: ALPRAZolam 0.25 MG TAB PO PRN (10:10)
[2023-02-02] MEDS: ALPRAZolam 0.25 MG TAB PO PRN (02:51)
[2023-02-02] MEDS: IPRATROPIUM 0.5MG/ALBUTEROL 2.5MG INH SOL UD 3ML (DUONEB) NEB SCH ×6 (03:10→23:09)
[2023-02-02 03:25] VITALS: BP 122/57
[2023-02-02] MEDS: ACETAMINOPHEN TAB 650MG DOSE (2X325MG) PO PRN (03:31)
[2023-02-02 05:55] LABS: HEMATOCRIT 33.4 % (36.0-47.0); LYMPH # 0.5 10^3/uL (1.5-5.0); LYMPH % 7.3 % (24.0-44.0); MEAN CORPUSCULAR HEMOGLOBIN 24.7 pg (27.0-33.0); MEAN CORPUSCULAR HGB CONC 26.9 g/dl (32.0-36.5); MEAN CORPUSCULAR VOLUME 91.8 fl (80.0-96.0); MONO # 0.8 10^3/uL (0.0-0.8); MONO % 12.3 % (2.0-8.0); NEUTROPHILS # 5.4 10^3/uL (1.5-8.5); NEUTROPHILS % 79.7 % (36.0-66.0); PLATELET COUNT, AUTOMATED 312 10^3/uL (150-450); RED BLOOD COUNT 3.64 10^6/uL (4.00-5.40); WHITE BLOOD COUNT 6.7 10^3/uL (4.0-10.0)
[2023-02-02 06:24] LABS: BLOOD UREA NITROGEN 17 MG/DL (9-23); CALCIUM LEVEL 8.6 MG/DL (8.3-10.6); CARBON DIOXIDE LEVEL > 40.0 MMOL/L (20-31); CHLORIDE LEVEL 90 MMOL/L (98-107); CREATININE FOR GFR 0.29 MG/DL (0.55-1.30); GLOMERULAR FILTRATION RATE > 60.0 (>45); GLUCOSE, FASTING 117 MG/DL (74-106); POTASSIUM SERUM 4.3 MMOL/L (3.5-5.1); SODIUM LEVEL 136 MMOL/L (136-145)
[2023-02-02 07:57] VITALS: BP 128/54
[2023-02-02] MEDS: SYMBICORT 160/4.5MCG INHALER 6GM INH SCH ×2 (08:04→20:14)
[2023-02-02] MEDS: SODIUM CHLORIDE NASAL 0.65% SPRAY BTL (OCEAN) SCH ×3 (08:12→20:45)
[2023-02-02] MEDS: MOM 30ML SUSPENSION UDC PO SCH (08:12)
[2023-02-02] MEDS: ENOXAPARIN 40MG/0.4ML SYRINGE (J1650 PER 10MG) SC SCH (08:13)
[2023-02-02] MEDS: SIMETHICONE 80MG CHEW TAB PO PRN (08:13)
[2023-02-02] MEDS: DOXYCYCLINE HYCLATE 100MG TABLET PO SCH ×2 (08:13→20:45)
[2023-02-02] MEDS: SENOKOT S TAB PO SCH ×2 (08:13→20:47)
[2023-02-02] MEDS: methylPREDNISolone 125MG 2ML VIAL IV SCH (08:13)
[2023-02-02 15:36] VITALS: BP 135/67
[2023-02-02 20:00] VITALS: BP 112/58
[2023-02-03] MEDS: ALPRAZolam 0.25 MG TAB PO PRN (00:16)
[2023-02-03] MEDS: ACETAMINOPHEN TAB 650MG DOSE (2X325MG) PO PRN (00:16)
[2023-02-03] MEDS: IPRATROPIUM 0.5MG/ALBUTEROL 2.5MG INH SOL UD 3ML (DUONEB) NEB SCH ×3 (03:04→11:24)
[2023-02-03 04:38] VITALS: BP 111/59
[2023-02-03 06:17] LABS: BASO % 0.1 % (0.0-1.0); EOS % 0.4 % (0.0-3.0); HEMATOCRIT 31.7 % (36.0-47.0); HEMOGLOBIN 8.8 g/dl (12.0-15.5); LYMPH # 1.3 10^3/uL (1.5-5.0); LYMPH % 18.2 % (24.0-44.0); MEAN CORPUSCULAR HEMOGLOBIN 25.1 pg (27.0-33.0); MEAN CORPUSCULAR HGB CONC 27.8 g/dl (32.0-36.5); MEAN CORPUSCULAR VOLUME 90.3 fl (80.0-96.0); MONO % 14.7 % (2.0-8.0); NEUTROPHILS # 4.6 10^3/uL (1.5-8.5); NEUTROPHILS % 65.7 % (36.0-66.0); PLATELET COUNT, AUTOMATED 302 10^3/uL (150-450); RED BLOOD COUNT 3.51 10^6/uL (4.00-5.40)
[2023-02-03 06:34] LABS: CORTISOL AM 24.9 UG/DL (4.3-22.4)
[2023-02-03 06:36] LABS: BLOOD UREA NITROGEN 14 MG/DL (9-23); CALCIUM LEVEL 8.7 MG/DL (8.3-10.6); CARBON DIOXIDE LEVEL > 40.0 MMOL/L (20-31); CHLORIDE LEVEL 89 MMOL/L (98-107); GLOMERULAR FILTRATION RATE > 60.0 (>45); GLUCOSE, FASTING 95 MG/DL (74-106); POTASSIUM SERUM 4.2 MMOL/L (3.5-5.1); SODIUM LEVEL 133 MMOL/L (136-145)
[2023-02-03] MEDS: SYMBICORT 160/4.5MCG INHALER 6GM INH SCH (07:07)
[2023-02-03 08:25] VITALS: BP 120/59
[2023-02-03] MEDS: ENOXAPARIN 40MG/0.4ML SYRINGE (J1650 PER 10MG) SC SCH (08:48)
[2023-02-03 08:49] VITALS: BP 120/59
[2023-02-03] MEDS: SODIUM CHLORIDE NASAL 0.65% SPRAY BTL (OCEAN) SCH (08:49)
[2023-02-03] MEDS: DOXYCYCLINE HYCLATE 100MG TABLET PO SCH (08:49)
[2023-02-03] MEDS: MOM 30ML SUSPENSION UDC PO SCH (08:49)
[2023-02-03] MEDS: SENOKOT S TAB PO SCH (08:50)
[2023-02-03] MEDS ORDERED: predniSONE 20 MG TAB PO SCH (09:00)
[2023-02-03] MEDS ORDERED: FAMO20TA PO (11:59)
[2023-02-03] MEDS ORDERED: PRED10TA2 PO (11:59)
[2023-02-03] MEDS ORDERED: PRED20TA PO (12:00)
[2023-02-03 12:22] VITALS: BP 101/59
== END 2023-02-03 14:30 | disposition home health service (06) | DRG 189 ==
LOC: M ED 14:57 → M ED INP 17:30 → ENRESERV 19:34 → M PCU 20:40
PROVIDERS: ADMIT Internal Medicine; ATTEND Internal Medicine Nephrology
PROC: B246ZZZ Ultrasonography of Right and Left Heart (ICD-10-PCS; principal; 2023-01-31)
DX: J96.21 Acute and chronic respiratory failure with hypoxia (principal); I31.39 Other pericardial effusion (noninflammatory); J44.1 Chronic obstructive pulmonary disease with (acute) exacerbation; E22.2 Syndrome of inappropriate secretion of antidiuretic hormone; E87.4 Mixed disorder of acid-base balance; J44.0 Chronic obstructive pulmonary disease with (acute) lower respiratory infection; J96.22 Acute and chronic respiratory failure with hypercapnia; K59.09 Other constipation; D50.9 Iron deficiency anemia, unspecified; M19.90 Unspecified osteoarthritis, unspecified site; R76.0 Raised antibody titer; I10 Essential (primary) hypertension; F41.9 Anxiety disorder, unspecified; E87.5 Hyperkalemia; I27.20 Pulmonary hypertension, unspecified; K44.9 Diaphragmatic hernia without obstruction or gangrene; F32.A Depression, unspecified; M32.9 Systemic lupus erythematosus, unspecified; E83.42 Hypomagnesemia; Z87.891 Personal history of nicotine dependence; Z79.52 Long term (current) use of systemic steroids; Z79.899 Other long term (current) drug therapy; Z99.81 Dependence on supplemental oxygen; Z88.6 Allergy status to analgesic agent; Z91.018 Allergy to other foods

== ENCOUNTER → 2023-02-14 | Outpatient (REF) | payer MEDICAID ==
[~2023-02-14] MED LIST changes: +FAMO20TA PO; +FLON1SPR NARES; +IBUP200C28 PO; +MIRA3350 PO; +MM S100C PO
[2023-02-14 18:17] LABS: HEMATOCRIT 32.4 % (36.0-47.0); HEMOGLOBIN 9.6 g/dl (12.0-15.5); MEAN CORPUSCULAR HGB CONC 29.6 g/dl (32.0-36.5); MEAN CORPUSCULAR VOLUME 91.3 fl (80.0-96.0); PLATELET COUNT, AUTOMATED 339 10^3/uL (150-450); RED BLOOD COUNT 3.55 10^6/uL (4.00-5.40)
[2023-02-14 18:23] LABS: COMPLEMENT C3 135.3 MG/DL (90.0-170.0); COMPLEMENT C4 30.8 MG/DL (12-36); RHEUMATOID FACTOR QUANT 10.2 IU/ML (<14)
[2023-02-14 18:24] LABS: ALKALINE PHOSPHATASE 106 U/L (46-116); ALT/SGPT 17 U/L (7.0-40); AST/SGOT 8 U/L (<34); BILIRUBIN,TOTAL 0.5 MG/DL (0.3-1.2); BLOOD UREA NITROGEN 10 MG/DL (9-23); CALCIUM LEVEL 8.8 MG/DL (8.3-10.6); CARBON DIOXIDE LEVEL 32 MMOL/L (20-31); CHLORIDE LEVEL 94 MMOL/L (98-107); CREATININE FOR GFR 0.36 MG/DL (0.55-1.30); GLOMERULAR FILTRATION RATE > 60.0 (>45); GLUCOSE, FASTING 121 MG/DL (74-106); MAGNESIUM LEVEL 1.9 MG/DL (1.8-2.4); POTASSIUM SERUM 5.3 MMOL/L (3.5-5.1); SODIUM LEVEL 132 MMOL/L (136-145); TOTAL PROTEIN 6.1 G/DL (5.7-8.2)
[2023-02-14 18:43] LABS: ERYTHROCYTE SEDIMENTATION RATE 73 mm/hr (0-30)
== END ==
LOC: M SFHCADAM 12:35
PROVIDERS: ATTEND Physician Assistant Medical
DX: R76.8 Other specified abnormal immunological findings in serum (principal); M32.12 Pericarditis in systemic lupus erythematosus

== ENCOUNTER → 2023-02-15 | Outpatient (CLI) | payer MEDICAID, OTHER | LOC: M ADAMS 13:38 | PROVIDERS: ATTEND Physician Assistant Medical | DX: D72.829 Elevated white blood cell count, unspecified (principal); R79.82 Elevated C-reactive protein (CRP); R05.1 Acute cough; J44.9 Chronic obstructive pulmonary disease, unspecified; J91.8 Pleural effusion in other conditions classified elsewhere ==

== ENCOUNTER → 2023-02-15 | Outpatient (CLI) | payer MEDICAID, OTHER ==
[2023-02-15 16:02] LABS: BASO % 0.1 % (0.0-1.0); EOS % 0.3 % (0.0-3.0); HEMATOCRIT 31.8 % (36.0-47.0); HEMOGLOBIN 9.3 g/dl (12.0-15.5); LYMPH # 0.7 10^3/uL (1.5-5.0); LYMPH % 5.4 % (24.0-44.0); MEAN CORPUSCULAR HEMOGLOBIN 26.1 pg (27.0-33.0); MEAN CORPUSCULAR HGB CONC 29.2 g/dl (32.0-36.5); MEAN CORPUSCULAR VOLUME 89.1 fl (80.0-96.0); MONO # 0.9 10^3/uL (0.0-0.8); MONO % 6.4 % (2.0-8.0); NEUTROPHILS # 11.9 10^3/uL (1.5-8.5); NEUTROPHILS % 87.4 % (36.0-66.0); PLATELET COUNT, AUTOMATED 317 10^3/uL (150-450); RED BLOOD COUNT 3.57 10^6/uL (4.00-5.40); WHITE BLOOD COUNT 13.6 10^3/uL (4.0-10.0)
== END ==
LOC: M PLALAB 14:20
PROVIDERS: ATTEND Physician Assistant Medical
DX: R05.1 Acute cough (principal); D72.829 Elevated white blood cell count, unspecified; R79.82 Elevated C-reactive protein (CRP)

== ENCOUNTER → 2023-02-22 | Outpatient (REF) | payer MEDICAID ==
[2023-02-22 17:04] LABS: BASO % 0.3 % (0.0-1.0); EOS # 0.1 10^3/uL (0.0-0.5); EOS % 0.9 % (0.0-3.0); HEMATOCRIT 33.2 % (36.0-47.0); HEMOGLOBIN 9.8 g/dl (12.0-15.5); LYMPH # 1.3 10^3/uL (1.5-5.0); LYMPH % 19.8 % (24.0-44.0); MEAN CORPUSCULAR HEMOGLOBIN 26.9 pg (27.0-33.0); MEAN CORPUSCULAR HGB CONC 29.5 g/dl (32.0-36.5); MEAN CORPUSCULAR VOLUME 91.2 fl (80.0-96.0); MONO # 0.4 10^3/uL (0.0-0.8); MONO % 6.3 % (2.0-8.0); NEUTROPHILS # 4.8 10^3/uL (1.5-8.5); NEUTROPHILS % 71.9 % (36.0-66.0); PLATELET COUNT, AUTOMATED 426 10^3/uL (150-450); RED BLOOD COUNT 3.64 10^6/uL (4.00-5.40); WHITE BLOOD COUNT 6.7 10^3/uL (4.0-10.0)
[2023-02-22 17:20] LABS: BLOOD UREA NITROGEN 6 MG/DL (9-23); CALCIUM LEVEL 8.1 MG/DL (8.3-10.6); CARBON DIOXIDE LEVEL 39 MMOL/L (20-31); CHLORIDE LEVEL 94 MMOL/L (98-107); GLOMERULAR FILTRATION RATE > 60.0 (>45); GLUCOSE, FASTING 114 MG/DL (74-106); MAGNESIUM LEVEL 1.8 MG/DL (1.8-2.4); POTASSIUM SERUM 4.9 MMOL/L (3.5-5.1); SODIUM LEVEL 133 MMOL/L (136-145)
== END ==
LOC: M SFHCADAM 13:32
PROVIDERS: ATTEND Physician Assistant Medical
DX: J43.1 Panlobular emphysema (principal); E87.1 Hypo-osmolality and hyponatremia

== ENCOUNTER 2023-04-29 18:20 | Observation (INO) | payer OTHER, MEDICARE ==
[~2023-04-29] VITALS: Ht 167.6 cm; Wt 52.3 kg
[~2023-04-29 18:20] MED LIST changes: +ALBU8.5H INH; +CVS1CAP2 PO; +DILT90CA PO; +FAMO20TA5 PO; +LASI20TA3 PO; +LEVO1TAB40 PO; +MED HIST COMMENT; +METO5TA PO; +SENN-111 PO; -SENN18TA PO
[2023-04-29] MEDS ORDERED: MED REC IN PROGRESS XX SCH (20:15)
[2023-04-29] MEDS ORDERED: LIDOCAINE 2% 5ML JELLY UROJET TOP ONE (20:20)
[2023-04-29] MEDS ORDERED: MORPHINE 2 MG/ML 1ML VIAL IV ONE (20:30)
[2023-04-29 20:45] LABS: BASO % 0.2 % (0.0-1.0); EOS # 0.1 10^3/uL (0.0-0.5); EOS % 0.7 % (0.0-3.0); HEMATOCRIT 36.7 % (36.0-47.0); HEMOGLOBIN 11.4 g/dl (12.0-15.5); LYMPH # 1.3 10^3/uL (1.5-5.0); LYMPH % 15.1 % (24.0-44.0); MEAN CORPUSCULAR HEMOGLOBIN 29.5 pg (27.0-33.0); MEAN CORPUSCULAR HGB CONC 31.1 g/dl (32.0-36.5); MEAN CORPUSCULAR VOLUME 94.8 fl (80.0-96.0); MONO # 0.7 10^3/uL (0.0-0.8); MONO % 8.4 % (2.0-8.0); NEUTROPHILS # 6.6 10^3/uL (1.5-8.5); PLATELET COUNT, AUTOMATED 293 10^3/uL (150-450); RED BLOOD COUNT 3.87 10^6/uL (4.00-5.40); WHITE BLOOD COUNT 8.8 10^3/uL (4.0-10.0)
[2023-04-29 20:57] LABS: INR 0.91; PARTIAL THROMBOPLASTIN TIME 27.9 SECONDS (24.8-34.2)
[2023-04-29 21:07] LABS: LIPASE 21 U/L (12-53)
[2023-04-29 21:20] LABS: ALBUMIN 3.1 G/DL (3.2-5.2); ALKALINE PHOSPHATASE 122 U/L (46-116); ALT/SGPT 15 U/L (7.0-40); AST/SGOT 17 U/L (<34); BILIRUBIN,DIRECT 0.1 MG/DL (<0.4); BILIRUBIN,TOTAL 0.4 MG/DL (0.3-1.2); BLOOD UREA NITROGEN 10 MG/DL (9-23); CALCIUM LEVEL 8.8 MG/DL (8.3-10.6); CARBON DIOXIDE LEVEL > 40.0 MMOL/L (20-31); CHLORIDE LEVEL 86 MMOL/L (98-107); CREATININE FOR GFR 0.44 MG/DL (0.55-1.30); GLOMERULAR FILTRATION RATE > 60.0 (>45); GLUCOSE, FASTING 83 MG/DL (74-106); POTASSIUM SERUM 4.2 MMOL/L (3.5-5.1); SODIUM LEVEL 131 MMOL/L (136-145); TOTAL PROTEIN 6.1 G/DL (5.7-8.2)
[2023-04-29] MEDS ORDERED: FUROSEMIDE 100MG/10ML VIAL IV ONE (21:35)
[2023-04-29] MEDS ORDERED: DILT60CASR PO (21:57)
[2023-04-29] MEDS ORDERED: MIRT-10 PO (21:57)
[2023-04-29] MEDS ORDERED: ACET1TAB55 PO (21:57)
[2023-04-29] MEDS ORDERED: ASPI81TA26 PO (21:57)
[2023-04-29] MEDS ORDERED: SYMB16INH INH (21:57)
[2023-04-29] MEDS ORDERED: HOME MED LIST COMPLETE! XX SCH (22:00)
[2023-04-29] MEDS ORDERED: ALBUTEROL 90 MCG/ACT 8GM HFA INHALER INH PRN (22:45)
[2023-04-29] MEDS: dilTIAZem 60 MG TAB PO ONE ×2 (23:17→23:23)
[2023-04-30] MEDS: MORPHINE 2 MG/ML 1ML VIAL IV PRN ×2 (00:10→11:50)
[2023-04-30 07:03] LABS: HEMATOCRIT 36.1 % (36.0-47.0); HEMOGLOBIN 11.1 g/dl (12.0-15.5); MEAN CORPUSCULAR HEMOGLOBIN 29.3 pg (27.0-33.0); MEAN CORPUSCULAR HGB CONC 30.7 g/dl (32.0-36.5); MEAN CORPUSCULAR VOLUME 95.3 fl (80.0-96.0); PLATELET COUNT, AUTOMATED 210 10^3/uL (150-450); RED BLOOD COUNT 3.79 10^6/uL (4.00-5.40); WHITE BLOOD COUNT 9.1 10^3/uL (4.0-10.0)
[2023-04-30 07:29] LABS: BLOOD UREA NITROGEN 10 MG/DL (9-23); CALCIUM LEVEL 8.3 MG/DL (8.3-10.6); CARBON DIOXIDE LEVEL > 40.0 MMOL/L (20-31); CHLORIDE LEVEL 84 MMOL/L (98-107); CREATININE FOR GFR 0.47 MG/DL (0.55-1.30); GLOMERULAR FILTRATION RATE > 60.0 (>45); GLUCOSE, FASTING 80 MG/DL (74-106); MAGNESIUM LEVEL 2.2 MG/DL (1.8-2.4); POTASSIUM SERUM 4.1 MMOL/L (3.5-5.1); SODIUM LEVEL 133 MMOL/L (136-145)
[2023-04-30] MEDS: dilTIAZem 30 MG TAB PO SCH ×2 (08:05→21:00)
[2023-04-30] MEDS: FUROSEMIDE 40 MG TAB PO SCH (08:05)
[2023-04-30] MEDS: ASPIRIN 81MG ENTERIC TABLET PO SCH (08:05)
[2023-04-30] MEDS: TIOTROPIUM INHALER/CAPSULE (SPIRIVA) INH SCH (08:21)
[2023-04-30] MEDS: SYMBICORT 160/4.5MCG INHALER 6GM INH SCH ×2 (08:22→19:16)
[2023-04-30] MEDS: IPRATROPIUM 0.5MG/ALBUTEROL 2.5MG INH SOL UD 3ML (DUONEB) INH PRN ×2 (08:27→20:18)
[2023-04-30] MEDS ORDERED: ENOXAPARIN 30MG/0.3ML SYRINGE (J1650 PER 10MG) SC SCH (09:00)
[2023-04-30] MEDS: ALPRAZolam 0.25 MG TAB PO PRN (11:51)
[2023-04-30] MEDS: ACETAMINOPHEN TAB 650MG DOSE (2X325MG) PO PRN (11:51)
[2023-04-30] MEDS ORDERED: SENNA 8.6 MG TAB (SENOKOT) PO PRN (12:10)
[2023-04-30 12:48] LABS: ABG BASE EXCESS 15.9 (-2.0-2.0); ABG HCO3 41.6 MMOL/L (22.0-26.0); ABG O2 SATURATION 96.5 % (95.0-99.0); ABG PARTIAL PRESSURE CO2 55.7 mmHg (35.0-45.0); ABG PARTIAL PRESSURE O2 82.5 mmHg (75.0-100.0); ABG STANDARD HCO3 39.8 MMOL/L. (22.0-26.0); ABG TOTAL CO2 43.3 MMOL/L (23.0-31.0); ABG pH (ARTERIAL) 7.491 UNITS (7.350-7.450)
[2023-04-30] MEDS: MIDODRINE 5 MG TAB PO SCH ×2 (13:29→16:48)
[2023-04-30 15:24] VITALS: BP 115/58; TEMP 97.4; O2SAT 91
[2023-04-30] MEDS: APIXABAN 5 MG TAB (ELIQUIS) PO SCH ×2 (16:48→20:46)
[2023-04-30 17:00] VITALS: O2SAT 98
[2023-04-30] MEDS ORDERED: CALCIUM CARBONATE 500 MG CHEW U/D PO PRN (17:50)
[2023-04-30 20:17] VITALS: BP 98/55; TEMP 97.2; O2SAT 92
[2023-04-30 20:30] VITALS: BP 102/58
[2023-04-30] MEDS: MIRTAZAPINE 15 MG TAB PO SCH (21:00)
[2023-04-30] MEDS: MIRALAX *UNIT DOSE* 17GM PACKET PO PRN (21:17)
[2023-05-01] VITALS (11 sets, daily range): BP systolic 90–116; BP diastolic 50–66; TEMP 97.1–98.8; O2SAT 96–100
[2023-05-01] MEDS ORDERED: SIMETHICONE 80MG CHEW TAB PO PRN (01:40)
[2023-05-01] MEDS: MORPHINE 2 MG/ML 1ML VIAL IV PRN (01:48)
[2023-05-01 06:53] LABS: BASO % 0.4 % (0.0-1.0); EOS # 0.1 10^3/uL (0.0-0.5); EOS % 0.6 % (0.0-3.0); HEMATOCRIT 32.3 % (36.0-47.0); HEMOGLOBIN 10.1 g/dl (12.0-15.5); LYMPH # 1.2 10^3/uL (1.5-5.0); LYMPH % 12.9 % (24.0-44.0); MEAN CORPUSCULAR HEMOGLOBIN 30.1 pg (27.0-33.0); MEAN CORPUSCULAR HGB CONC 31.3 g/dl (32.0-36.5); MEAN CORPUSCULAR VOLUME 96.4 fl (80.0-96.0); MONO # 0.8 10^3/uL (0.0-0.8); MONO % 8.4 % (2.0-8.0); NEUTROPHILS # 7.1 10^3/uL (1.5-8.5); NEUTROPHILS % 77.1 % (36.0-66.0); PLATELET COUNT, AUTOMATED 296 10^3/uL (150-450); RED BLOOD COUNT 3.35 10^6/uL (4.00-5.40); WHITE BLOOD COUNT 9.3 10^3/uL (4.0-10.0)
[2023-05-01] MEDS: TIOTROPIUM INHALER/CAPSULE (SPIRIVA) INH SCH (07:13)
[2023-05-01] MEDS: IPRATROPIUM 0.5MG/ALBUTEROL 2.5MG INH SOL UD 3ML (DUONEB) INH PRN (07:13)
[2023-05-01] MEDS: SYMBICORT 160/4.5MCG INHALER 6GM INH SCH ×2 (07:13→19:24)
[2023-05-01 07:27] LABS: BLOOD UREA NITROGEN 10 MG/DL (9-23); CALCIUM LEVEL 8.4 MG/DL (8.3-10.6); CARBON DIOXIDE LEVEL > 40.0 MMOL/L (20-31); CHLORIDE LEVEL 85 MMOL/L (98-107); CORTISOL AM 28.4 UG/DL (4.3-22.4); CREATININE FOR GFR 0.53 MG/DL (0.55-1.30); GLOMERULAR FILTRATION RATE > 60.0 (>45); GLUCOSE, FASTING 86 MG/DL (74-106); MAGNESIUM LEVEL 2.2 MG/DL (1.8-2.4); POTASSIUM SERUM 4.1 MMOL/L (3.5-5.1); SODIUM LEVEL 132 MMOL/L (136-145)
[2023-05-01] MEDS: MIRALAX *UNIT DOSE* 17GM PACKET PO PRN (08:00)
[2023-05-01] MEDS: DOCUSATE SODIUM 100MG CAPSULE PO PRN (08:01)
[2023-05-01] MEDS: MIDODRINE 5 MG TAB PO SCH ×3 (08:01→15:55)
[2023-05-01] MEDS: dilTIAZem 30 MG TAB PO SCH ×2 (09:00→21:00)
[2023-05-01] MEDS: FUROSEMIDE 40 MG TAB PO SCH (09:00)
[2023-05-01] MEDS: APIXABAN 5 MG TAB (ELIQUIS) PO SCH ×2 (09:03→21:20)
[2023-05-01] MEDS: ALPRAZolam 0.25 MG TAB PO PRN (09:04)
[2023-05-01] MEDS: ASPIRIN 81MG ENTERIC TABLET PO SCH (09:04)
[2023-05-01] MEDS ORDERED: BISACODYL 10MG SUPP PR ONE (11:55)
[2023-05-01] MEDS ORDERED: LACTULOSE 20GM/30ML SYRUP UDC PO ONE (11:55)
[2023-05-01] MEDS: MIRTAZAPINE 15 MG TAB PO SCH (21:20)
[2023-05-02] MEDS: ACETAMINOPHEN TAB 650MG DOSE (2X325MG) PO PRN ×3 (05:26→18:10)
[2023-05-02] MEDS: MIDODRINE 5 MG TAB PO SCH ×3 (05:27→15:54)
[2023-05-02] MEDS: MORPHINE 2 MG/ML 1ML VIAL IV PRN ×3 (05:27→20:54)
[2023-05-02] MEDS: IPRATROPIUM 0.5MG/ALBUTEROL 2.5MG INH SOL UD 3ML (DUONEB) INH PRN ×3 (05:31→19:39)
[2023-05-02 05:43] LABS: BASO % 0.3 % (0.0-1.0); EOS # 0.1 10^3/uL (0.0-0.5); EOS % 1.1 % (0.0-3.0); HEMATOCRIT 31.9 % (36.0-47.0); HEMOGLOBIN 9.6 g/dl (12.0-15.5); LYMPH # 1.2 10^3/uL (1.5-5.0); LYMPH % 13.1 % (24.0-44.0); MEAN CORPUSCULAR HEMOGLOBIN 29.4 pg (27.0-33.0); MEAN CORPUSCULAR HGB CONC 30.1 g/dl (32.0-36.5); MEAN CORPUSCULAR VOLUME 97.6 fl (80.0-96.0); MONO # 0.7 10^3/uL (0.0-0.8); MONO % 7.3 % (2.0-8.0); NEUTROPHILS # 7.3 10^3/uL (1.5-8.5); NEUTROPHILS % 77.5 % (36.0-66.0); PLATELET COUNT, AUTOMATED 327 10^3/uL (150-450); RED BLOOD COUNT 3.27 10^6/uL (4.00-5.40); WHITE BLOOD COUNT 9.4 10^3/uL (4.0-10.0)
[2023-05-02 06:00] VITALS: BP 98/48; TEMP 97.9; O2SAT 97
[2023-05-02 06:07] LABS: BLOOD UREA NITROGEN 6 MG/DL (9-23); CALCIUM LEVEL 7.9 MG/DL (8.3-10.6); CARBON DIOXIDE LEVEL > 40.0 MMOL/L (20-31); CHLORIDE LEVEL 90 MMOL/L (98-107); CREATININE FOR GFR 0.54 MG/DL (0.55-1.30); GLOMERULAR FILTRATION RATE > 60.0 (>45); GLUCOSE, FASTING 80 MG/DL (74-106); POTASSIUM SERUM 3.6 MMOL/L (3.5-5.1); SODIUM LEVEL 135 MMOL/L (136-145)
[2023-05-02] MEDS: SYMBICORT 160/4.5MCG INHALER 6GM INH SCH ×2 (07:28→19:39)
[2023-05-02] MEDS: TIOTROPIUM INHALER/CAPSULE (SPIRIVA) INH SCH (07:28)
[2023-05-02] MEDS: FUROSEMIDE 40 MG TAB PO SCH (09:00)
[2023-05-02] MEDS: dilTIAZem 30 MG TAB PO SCH ×2 (09:00→21:00)
[2023-05-02] MEDS: ASPIRIN 81MG ENTERIC TABLET PO SCH (09:37)
[2023-05-02] MEDS: APIXABAN 5 MG TAB (ELIQUIS) PO SCH ×2 (09:37→20:52)
[2023-05-02] MEDS: ALPRAZolam 0.25 MG TAB PO PRN (09:44)
[2023-05-02 14:00] VITALS: BP 108/57; TEMP 97.9; O2SAT 97
[2023-05-02] MEDS: MIRTAZAPINE 15 MG TAB PO SCH (20:52)
[2023-05-02 21:00] VITALS: BP 102/68; TEMP 97.7; O2SAT 96
[2023-05-03] MEDS: IPRATROPIUM 0.5MG/ALBUTEROL 2.5MG INH SOL UD 3ML (DUONEB) INH PRN ×2 (01:18→07:30)
[2023-05-03 06:00] VITALS: BP 99/55; TEMP 97.5; O2SAT 95
[2023-05-03 06:03] LABS: BASO % 0.5 % (0.0-1.0); EOS # 0.1 10^3/uL (0.0-0.5); EOS % 1.3 % (0.0-3.0); HEMATOCRIT 33.5 % (36.0-47.0); HEMOGLOBIN 9.7 g/dl (12.0-15.5); LYMPH # 1.5 10^3/uL (1.5-5.0); MEAN CORPUSCULAR HEMOGLOBIN 28.9 pg (27.0-33.0); MEAN CORPUSCULAR VOLUME 99.7 fl (80.0-96.0); MONO # 0.7 10^3/uL (0.0-0.8); MONO % 8.5 % (2.0-8.0); NEUTROPHILS # 6.3 10^3/uL (1.5-8.5); NEUTROPHILS % 71.7 % (36.0-66.0); PLATELET COUNT, AUTOMATED 338 10^3/uL (150-450); RED BLOOD COUNT 3.36 10^6/uL (4.00-5.40); WHITE BLOOD COUNT 8.7 10^3/uL (4.0-10.0)
[2023-05-03 06:26] LABS: BLOOD UREA NITROGEN 10 MG/DL (9-23); CARBON DIOXIDE LEVEL > 40.0 MMOL/L (20-31); CHLORIDE LEVEL 92 MMOL/L (98-107); CREATININE FOR GFR 0.41 MG/DL (0.55-1.30); GLOMERULAR FILTRATION RATE > 60.0 (>45); GLUCOSE, FASTING 85 MG/DL (74-106); MAGNESIUM LEVEL 1.8 MG/DL (1.8-2.4); POTASSIUM SERUM 3.6 MMOL/L (3.5-5.1); SODIUM LEVEL 138 MMOL/L (136-145)
[2023-05-03] MEDS: TIOTROPIUM INHALER/CAPSULE (SPIRIVA) INH SCH (07:30)
[2023-05-03] MEDS: SYMBICORT 160/4.5MCG INHALER 6GM INH SCH (07:30)
[2023-05-03] MEDS: ASPIRIN 81MG ENTERIC TABLET PO SCH (08:16)
[2023-05-03] MEDS: ALPRAZolam 0.25 MG TAB PO PRN (08:16)
[2023-05-03] MEDS: APIXABAN 5 MG TAB (ELIQUIS) PO SCH (08:16)
[2023-05-03] MEDS: MIDODRINE 5 MG TAB PO SCH ×2 (08:16→12:32)
[2023-05-03] MEDS: MORPHINE 2 MG/ML 1ML VIAL IV PRN (08:17)
[2023-05-03 08:19] VITALS: BP 99/55
[2023-05-03] MEDS: FUROSEMIDE 40 MG TAB PO SCH (08:19)
[2023-05-03] MEDS: dilTIAZem 30 MG TAB PO SCH (08:19)
[2023-05-03] MEDS ORDERED: PERCOCET 5MG/325MG TAB PO PRN (09:00)
[2023-05-03] MEDS: ACETAMINOPHEN TAB 650MG DOSE (2X325MG) PO PRN (10:49)
[2023-05-03] MEDS: DOCUSATE SODIUM 100MG CAPSULE PO PRN (10:49)
[2023-05-03] MEDS ORDERED: ELIQ5TAB PO ×2 (10:59→11:29)
[2023-05-03] MEDS ORDERED: CALC200T15 PO (10:59)
[2023-05-03] MEDS ORDERED: METO5TA PO (10:59)
[2023-05-03] MEDS ORDERED: MIDO5TA PO ×2 (10:59→11:02)
[2023-05-03] MEDS ORDERED: PERCOCET PO ×2 (10:59→11:02)
[2023-05-03] MEDS ORDERED: FURO40TA2 PO (10:59)
[2023-05-03] MEDS: MIRALAX *UNIT DOSE* 17GM PACKET PO PRN (12:12)
== END 2023-05-03 13:59 | disposition home or self-care (01) ==
LOC: M ED 18:20 → M ED INP 22:45 → M PCU 04-30 15:14 → M MSPAV 05-01 15:45
PROVIDERS: ADMIT Family Medicine; ATTEND Internal Medicine
DX: I82.412 Acute embolism and thrombosis of left femoral vein (principal); I87.8 Other specified disorders of veins; J96.11 Chronic respiratory failure with hypoxia; J44.9 Chronic obstructive pulmonary disease, unspecified; I47.1 Supraventricular tachycardia; I31.39 Other pericardial effusion (noninflammatory); I50.30 Unspecified diastolic (congestive) heart failure; R33.9 Retention of urine, unspecified; F41.9 Anxiety disorder, unspecified; I95.9 Hypotension, unspecified; M32.9 Systemic lupus erythematosus, unspecified; M19.90 Unspecified osteoarthritis, unspecified site; R53.1 Weakness; Z74.09 Other reduced mobility; E87.1 Hypo-osmolality and hyponatremia; K59.00 Constipation, unspecified; F32.A Depression, unspecified; R18.8 Other ascites; R91.8 Other nonspecific abnormal finding of lung field; Z88.6 Allergy status to analgesic agent; Z91.018 Allergy to other foods; Z79.899 Other long term (current) drug therapy; Z79.82 Long term (current) use of aspirin; Z79.51 Long term (current) use of inhaled steroids; Z99.81 Dependence on supplemental oxygen
CPT/HCPCS: 36415; 36600; 51702; 71045; 71250; 74018; 80048; 80076; 81001; 82533; 82803; 83605; 83690; 83735; 83880; 85025; 85027; 85610; 85730; 87635; 93005; 93041; 93306; 93970; 94640; 94760; 96372; 96374; 96375; 96376; 97116; 97161; 97165; 97530; 99285; J1650; J1940

== ENCOUNTER → 2023-07-13 | Outpatient (REF) | payer OTHER, MEDICARE, MEDICAID ==
[~2023-07-13] MED LIST changes: +ACET1TAB55 PO; +ASPI81TA26 PO; +CALC200T15 PO; +ELIQ5TAB PO; +FURO40TA2 PO; +MIDO5TA PO; +MIRT-10 PO; +PERCOCET PO; +SYMB16INH INH
[2023-07-14 15:57] LABS: AMORPHOUS SEDIMENT SMALL (NEGATIVE); APPEARANCE, URINE TURBID (CLEAR); BACTERIA, URINE AUTO 1+ (NEGATIVE); BILIRUBIN, URINE AUTO NEGATIVE (NEGATIVE); BLOOD, URINE BLOOD 1+ (NEGATIVE); COLOR, URINE AMBER (YELLOW); GLUCOSE, URINE (UA) AUTO NEGATIVE (NEGATIVE); KETONE, URINE AUTO NEGATIVE (NEGATIVE); LEUKOCYTE ESTERASE, URINE AUTO 3+ (NEGATIVE); MUCUS, URINE SMALL (NEGATIVE); NITRITE, URINE AUTO NEGATIVE (NEGATIVE); PROTEIN, URINE AUTO 1+ mg/dL (NEGATIVE); RBC, URINE AUTO 1 /HPF (0-3); SQUAMOUS EPITHELIAL CELL UR AU 1 /HPF (0-6); UROBILINOGEN, URINE AUTO 0.2 mg/dL (0.0-2.0); WBC, URINE AUTO 17 /HPF (0-3)
== END ==
LOC: M SHH 12:23
PROVIDERS: ATTEND Physician Assistant Medical
DX: Z43.6 Encounter for attention to other artificial openings of urinary tract (principal)